=== PATIENT | male | born 1960 | race Caucasian/White ===

== ENCOUNTER 2017-03-13 00:24 | Inpatient (IN) ==
--- NOTE | 2017-03-13 01:23 | Emergency Department Note ---
Arrival - Arrival Chief Complaint: Shortness of Breath Stated Complaint: transfer from [facility], [place] of Breath ED Nursing Triage Note: Pt arrives via ems from [facility]. Pt was seen for shortness of breath and became combative while attempting to give breathing treatments. Pt was intubated and sent for critical care. Pt is intubated with 7.5 et tube and sedated with versed infusion at time of triage. Mode of Arrival: Stretcher Limitations: Altered Mental Status Source: Family, EMS, Old Records Reviewed, RN Notes Reviewed Time Seen by Provider: 03/13/17 01:14 - History of Present Illness HPI Narrative: The patient was transferred here from [place] intubated with COPD exacerbation. According to the family he has been having steadily worsening respiratory problems for the past 2 months. He does not see a physician for this. He is a heavy smoker and has COPD. He went to the hospital tonight and they were unable to turn him around with nebs. He became very combative and started worsening so he was intubated. The family knows of no fever or other symptoms. Allergies/Adverse Reactions: Allergies Allergy/AdvReac Type Severity Reaction Status Date / Time No Known Allergies Allergy Verified 12/18/15 23:34 Home Medications: Home Medications Medication Instructions Recorded Confirmed Type No Known Home Medications [No 03/13/17 03/13/17 History Known Home Medications] Review of System - Review of System ROS unobtainable: due to mental status Medical,Surgical,& Family Hx - Medical History HEENT: History of: Ear Problem (ear infection) Respiratory: History of: COPD Gastrointestinal: History of: GERD, Liver Problems (enlarged liver), Pancreatitis Musculoskeletal: History of: Back/Neck Problems - Surgical History Abdominal Surgeries: Surgical HX of: Cholecystectomy - Family History Family History: Reports;: Family Cancer (grandfather-lung,dad-brain/lung, grandmother-breast, aunt-"female"), Family Diabetes (grandmothers), Family Hypertension (mother), Family Stroke (mother ahd multiple cvas) Denies;: Family Anesthesia Reaction, Family Heart Disease, Family Psychiatric Problems - Social History Smoking Status: Current every day smoker Frequency of Alcohol Use: None Type of Drug Use: None Exam Physical Examination: GENERAL: Obtunded on Versed infusion. Intubated. Sats 100%. HEENT: Normocephalic and atraumatic. Pupils are small and sluggish bilaterally. There is no nasal drainage. Patient is intubated. NECK: Normal inspection. No lymphadenopathy noted. LUNGS: Intubated. Breath sounds are equal. Chest rise is symmetric. Lung sounds are clear. HEART: Regular rate and rhythm. ABDOMEN: Soft, nondistended with normal bowel sounds. SKIN: Color normal. Warm and dry. EXTREMITIES: . No pedal edema. No obvious trauma. NEUROLOGICAL/PSYCHIATRIC: Patient is unresponsive due to Versed infusion and cannot cooperate with neuro exam. Vital Signs: Vital Signs Temperature 98.7 F 03/13/17 00:24 Pulse Rate 101 H 03/13/17 00:24 Respiratory Rate 16 03/13/17 01:09 Blood Pressure 101/70 03/13/17 00:24 O2 Sat by Pulse Oximetry 98 03/13/17 00:24 Course - Reevaluation(s) Reevaluation #1: Patient appears to be stable on the ventilator. I have ordered ABGs. I have discussed the patient with the hospitalist service who will see him and admit. Time: 01:21 Results - Labs Lab Results: I have reviewed the patients labs Labs: Labs were done at [facility] and are significant as follows: Glucose 110 BUN 4 Creatinine 0.8 Sodium 137 Potassium 3.4 WBC count 9.6 Hemoglobin 16.8 Hematocrit 48.7 Platelets 244. - Impressions Chest x-ray from [place] showed the ET tube just above the fabrice. No obvious infiltrates. Disposition Clinical Impression: Acute exacerbation of chronic obstructive airways disease Case discussed with: patient's family Disposition: Still a Patient Condition: Critical Time of Disposition: 01:31
[2017-03-13] MEDS ORDERED: fentaNYL 100 MCG/2 ML VIAL IV STA (02:17)
--- NOTE | 2017-03-13 02:27 | Hospitalist History & Physical ---
Assessment and Plan (1) Acute respiratory failure Status: Acute Assessment and plan: Acute COPD Exacerbation/Acute respiratory failure - On ventilator - Sedated with Versed - IV Solumedrol - IV Levaquin - nebulizer treatments - serial abg's - consult pulmonology - will monitor Current Visit: Yes (2) Acute exacerbation of chronic obstructive airways disease Status: Acute Assessment and plan: see above Current Visit: Yes History of Present Illness Chief complaint: shortness of breath History of present illness: Mr. San is a 56 year old male with a history of COPD, GERD, enlarged liver, pancreatitis, and chronic neck and back pain that was transferred to the ER from [facility]. Patient presented there with shortness of breath that did not improve with several nebulizer treatments. He became combative and respiratory status worsened and he was intubated. Patient was transferred here status post intubation. Per family, patient is everyday smoker. Patient has been having worsening shortness of breath for the past several weeks. Patient' s family reports he recently lost his voice. They are not quite sure of his other symptoms. Patient is a former alcoholic but family feels that he has stopped drinking alcohol. Patient's family thinks that this is the first time he has had to be intubated for a COPD exacerbation. Patient does not have a primary care provider and does not receive any medical care. Again, patient continues to smoke. Records from outside hospital reviewed. Patient will be admitted to ICU for further management per the hospitalist service. Home Medications Medication Instructions Recorded Confirmed Type Unable To Obtain [Unable to Obtain] 03/13/17 03/13/17 History Allergies Allergy/AdvReac Type Severity Reaction Status Date / Time No Known Allergies Allergy Verified 12/18/15 23:34 Medical,Surgical,& Family Hx - Medical History HEENT: History of: Ear Problem (ear infection) Respiratory: History of: COPD Gastrointestinal: History of: GERD, Liver Problems (enlarged liver), Pancreatitis, GI Problems (hiatal hernia) Musculoskeletal: History of: Back/Neck Problems - Surgical History Abdominal Surgeries: Surgical HX of: Cholecystectomy - Family History Family History: Reports;: Family Cancer (grandfather-lung,dad-brain/lung, grandmother-breast, aunt-"female"), Family Diabetes (grandmothers), Family Hypertension (mother), Family Stroke (mother ahd multiple cvas) Denies;: Family Anesthesia Reaction, Family Heart Disease, Family Psychiatric Problems - Social History Smoking Status: Current every day smoker Frequency of Alcohol Use: None Type of Drug Use: None ROS unobtainable: due to endotracheal tube Exam - Constitutional Vitals: Period Temp Pulse Resp BP Sys/Hart Pulse Ox Last 24 Hr 98.2 F-98.7 F 101-101 14-16 101-101/70-70 98 General appearance: normal weight, no acute distress - Head Head exam: Present: normal inspection, other (intubated) - Eye Pupils: Present: PETE - Neck Neck exam: Present: normal inspection - Respiratory Respiratory exam: Present: decreased breath sounds, wheezes (expiratory), other (coarse breath sounds) - Cardiovascular Cardiovascular exam: Present: regular rate and rhythm. Absent: systolic murmur - GI/Abdominal GI/Abdominal exam: Present: normal bowel sounds, soft. Absent: organomegaly - Extremities Exam Extremities exam: Present: other (peripheral pulses intact). Absent: edema - Neurological Exam Neurological exam: Present: other (sedated) - Skin Skin exam: Present: normal color, warm Results - Labs Labs: records reviewed from [facility]
[2017-03-13] MEDS: MIDAZOLAM 100 MG in SODIUM CHLORIDE 0.9% 80 ML IV SCH (02:32)
[2017-03-13 02:54] LABS: ABG Base Excess -0.2 MMOL/L (-2.5-2.5); ABG HCO3 24.2 MMOL/L (20-26); ABG PCO2 50.7 MM HG (35-48); ABG TCO2 22.9 MMOL/L (23-27); Allen Test Positive; Pt O2 Delivery Device Ventilator
[2017-03-13] MEDS ORDERED: fentaNYL 100 MCG/2 ML VIAL ONE (02:54)
[2017-03-13] MEDS ORDERED: ONDANSETRON 4 MG/2 ML VIAL IV PRN (03:09)
[2017-03-13] MEDS ORDERED: MIDAZOLAM 100 MG in SODIUM CHLORIDE 0.9% 80 ML IV SCH (03:09)
[2017-03-13] MEDS: SODIUM CHLORIDE 0.9% 1,000 ML IV SCH ×3 (04:09→17:54)
[2017-03-13] MEDS: PANTOPRAZOLE 40 MG VIAL IV SCH (04:17)
[2017-03-13] MEDS: LEVOFLOXACIN INJ 750 MG in PREMIX 1 EACH IV SCH (04:18)
[2017-03-13] MEDS: methylPREDNISolone SOD SUC 125 MG/2 ML VIAL IV SCH ×4 (04:18→21:03)
[2017-03-13 05:24] LABS: Basophils % 0.4 % (0.0-0.8); Hematocrit 41.2 VOL% (42.0-52.0); Hemoglobin 14.4 GM/DL (14.0-18.0); Immature Granulocytes % 0.5 %; Immature Granulocytes Absolute 0.03 #; Lymphocytes # 0.4 10*3/uL (1.4-4.0); Lymphocytes % 7.3 % (21.2-54.2); Mean Corpuscular Hemoglobin 35 PG (27-34); Mean Corpuscular Volume 100.7 FL (87-102); Mean Platelet Volume 10.4 FL (9.6-12.0); Monocytes # 0.1 10*3/uL (0.11-0.8); Monocytes % 1.6 % (1.7-12.7); Neutrophils % 90.2 % (38.7-73.9); Platelet Count 187 T/CUMM (130-400); Red Blood Count 4.09 MC/CUMM (3.8-5.5); Red Cell Distribution Width 13.1 % (9.3-17.3); White Blood Count 5.6 T/CUMM (4-12)
[2017-03-13 05:48] LABS: Apearance,Urine CLOUDY (Clear); Bilirubin,Urine Negative (Negative); Blood, Urine Moderate mg/dL (Negative); Glucose,Urine (UA) Negative (Negative); Ketones,Urine 20 mg/dL (Negative); Mucus,Urine Many /LPF (Occasional); Nitrite,Urine Negative (Negative); Protein,Urine 30 MG/DL; Urine Color Amber (Yellow); Urine Specific Gravity 1.017 (1.001-1.035); WBC,Urine 53 /HPF (0-6)
[2017-03-13 05:52] LABS: Magnesium 2.1 MG/DL (1.8-2.4)
[2017-03-13 05:58] LABS: Albumin 2.6 G/DL (3.4-5.0); Bilirubin,Total 0.8 MG/DL (0.2-1.0); Calcium 8.3 MG/DL (8.5-10.1); Osmolality,Calculated 272.7 MOS/KG (273-304); Potassium 3.4 MMOL/L (3.5-5.1); Total Protein 5.8 G/DL (6.4-8.3)
[2017-03-13] MEDS ORDERED: SODIUM CHLORIDE 0.9% 1,000 ML IV SCH (06:00)
[2017-03-13 06:04] LABS: Lactic Acid 2.3 MMOL/L (0.4-2.0)
[2017-03-13 06:31] LABS: Platelet Estimate Normal
[2017-03-13] MEDS: ALBUTEROL/IPRATROPIUM 3 ML NEB RESP TX SCH ×3 (07:34→19:34)
[2017-03-13 07:49] LABS: ABG Base Excess -0.8 MMOL/L (-2.5-2.5); ABG HCO3 23.8 MMOL/L (20-26); ABG Oxygen Saturation 98.5 % (95-100); ABG PCO2 33.7 MM HG (35-48); ABG PH 7.436 (7.35-7.45); ABG TCO2 19.4 MMOL/L (23-27); Allen Test Positive; Pt O2 Delivery Device Ventilator
--- NOTE | 2017-03-13 08:20 | Pulmonology Consult Note ---
Assessment and Plan (1) Smoker Status: Acute Assessment and plan: We will place a nicotine patch and he certainly needs to quit smoking. Current Visit: Yes (2) Acute exacerbation of chronic obstructive airways disease Status: Acute Assessment and plan: The patient comes in with an exacerbation of his COPD and is now on the ventilator. Will continue with steroids and bronchodilator therapy. Current Visit: Yes (3) Acute respiratory failure Status: Acute Assessment and plan: The patient apparently was in distress and agitated and had to be intubated. He is stable on the ventilator at present. Current Visit: Yes History of Present Illness Chief complaint: Ventilator management History of present illness: Mr. San is a 56 year old white male that apparently is a heavy smoker and has COPD. Last year he has gallstone pancreatitis and had a cholecystectomy. He presented to [facility] with increasing shortness of breath and respiratory distress. He apparently was very agitated and combative and was ultimately intubated. He is now on the ventilator and reasonably stable. He has not had any treatment for COPD. He used to drink alcohol a lot but the family apparently thinks that he stopped this. He is a heavy smoker. He is stable on the ventilator at present Home Medications Medication Instructions Recorded Confirmed Type No Known Home Medications [No 03/13/17 03/13/17 History Known Home Medications] Allergies Allergy/AdvReac Type Severity Reaction Status Date / Time No Known Allergies Allergy Verified 12/18/15 23:34 ROS unobtainable: due to endotracheal tube (Patient is sedated on ventilator at present.) Exam (Pulmonay) H&P - Constitutional Vitals: Period Temp Pulse Resp BP Sys/Hart Pulse Ox Last 24 Hr 97 F-98.7 F 86-112 14-26 90-120/58-74 95-100 General appearance: normal weight, no acute distress (Patient is comfortable on the ventilator.) - Head Head exam: Present: normal inspection, normocephalic - Eye Eye exam: Present: EOMI. Absent: scleral icterus Pupils: Present: PETE - ENT ENT exam: Present: other (ET tube is in good position) - Neck Neck exam: Absent: lymphadenopathy, thyromegaly - Respiratory Respiratory exam: Present: decreased breath sounds, wheezes, other (He has good breath sounds bilaterally.) - Cardiovascular Cardiovascular exam: Present: regular rate and rhythm. Absent: gallop, systolic murmur - GI/Abdominal GI/Abdominal exam: Present: normal bowel sounds, soft. Absent: distended, tenderness - Extremities Exam Extremities exam: Absent: calf tenderness, edema - Neurological Exam Neurological exam: Present: other (Patient is sedated on the ventilator) - Psychiatric Psychiatric exam: Absent: anxious - Skin Skin exam: Present: warm, dry Medical,Surgical,& Family Hx - Medical History HEENT: History of: Ear Problem (ear infection) Respiratory: History of: COPD Gastrointestinal: History of: GERD, Liver Problems (enlarged liver), Pancreatitis, GI Problems (hiatal hernia) Musculoskeletal: History of: Back/Neck Problems - Surgical History Abdominal Surgeries: Surgical HX of: Cholecystectomy - Family History Family History: Reports;: Family Cancer (grandfather-lung,dad-brain/lung, grandmother-breast, aunt-"female"), Family Diabetes (grandmothers), Family Hypertension (mother), Family Stroke (mother ahd multiple cvas) Denies;: Family Anesthesia Reaction, Family Heart Disease, Family Psychiatric Problems - Social History Smoking Status: Current every day smoker Frequency of Alcohol Use: None Type of Drug Use: None Results - Labs CBC & BMP: 03/13/17 04:33 03/13/17 04:33 Labs: His PO2 is 117 with a PCO2 of 33 and a pH of 7.43 on 60%. - Diagnostic Findings Procedure: Chest x-ray: image reviewed by me, report reviewed by me (Chest x- ray shows COPD changes with mild left lower lobe atelectasis.)
[2017-03-13] MEDS: ENOXAPARIN 40 MG/0.4 ML SYRINGE SUBCUT SCH (08:53)
[2017-03-13] MEDS: NICOTINE 21 MG/24 HR PATCH TRANSDERM SCH (08:57)
--- NOTE | 2017-03-13 10:17 | XRay Report ---
XR chest 1V portable Indication: Shortness of breath Comparison: 12 March 2017 Findings: The heart and mediastinum are stable in size and configuration. Endotracheal tube is unchanged in position. The pulmonary vascularity is normal in caliber. No lung infiltrates, effusions, pneumothorax or other abnormality is demonstrated. Impression: No significant change. PROCEDURE INTERPRETED AT [facility] DEPARTMENT OF RADIOLOGY Final Report Signed by: Dr. Ayad Melo
--- NOTE | 2017-03-13 12:09 | Hospitalist Progress Note ---
Assessment and Plan (1) Acute respiratory failure Status: Acute Assessment and plan: continue current care. Follow pulmonary's recommendations. Will get Blood cultures Current Visit: Yes (2) History of alcohol abuse Status: Acute Assessment and plan: will start thiamine,folic acid and multivitamins. Current Visit: Yes Hospitalist: Subjective Interval history: Patient seen this am. He was awake but intubated. Exam - Constitutional Vitals: Period Temp Pulse Resp BP Sys/Hart Pulse Ox Last 24 Hr 97 F-98.7 F 86-112 10-26 90-120/58-74 95-100 General appearance: no acute distress - Head Head exam: Present: normal inspection - Respiratory Respiratory exam: Present: rhonchi, other - Cardiovascular Cardiovascular exam: Present: regular rate and rhythm - GI/Abdominal GI/Abdominal exam: Present: normal bowel sounds - Extremities Exam Extremities exam: Present: normal inspection - Neurological Exam Neurological exam: Present: alert Results - Labs CBC & BMP: 03/13/17 04:33 03/13/17 04:33 Lab Results: I have reviewed the past 24 hour labs
[2017-03-13] MEDS ORDERED: FOLIC ACID 5 MG/1 ML VIAL IV SCH (12:30)
[2017-03-13] MEDS: MULTIVITAMIN (OCUVITE) TABLET PO SCH ×2 (13:49→20:16)
[2017-03-13] MEDS: THIAMINE 200 MG/2 ML VIAL IV SCH (14:15)
[2017-03-13] MEDS: FOLIC ACID INJ 1 MG in SYRINGE 1 EACH IV SCH (14:23)
[2017-03-14] MEDS: SODIUM CHLORIDE 0.9% 1,000 ML IV SCH ×6 (00:53→20:35)
[2017-03-14] MEDS: ALBUTEROL/IPRATROPIUM 3 ML NEB RESP TX SCH ×4 (01:47→20:35)
[2017-03-14] MEDS ORDERED: PROPOFOL 1,000 MG/100 ML BOTTLE IV ONE (04:01)
[2017-03-14] MEDS: PROPOFOL 1,000 MG/100 ML BOTTLE IV SCH ×4 (04:05→22:12)
[2017-03-14] MEDS: MIDAZOLAM 100 MG in SODIUM CHLORIDE 0.9% 80 ML IV SCH (04:06)
[2017-03-14] MEDS: methylPREDNISolone SOD SUC 125 MG/2 ML VIAL IV SCH ×4 (04:06→21:03)
[2017-03-14] MEDS: PANTOPRAZOLE 40 MG VIAL IV SCH (04:06)
[2017-03-14] MEDS: ENOXAPARIN 40 MG/0.4 ML SYRINGE SUBCUT SCH (04:06)
[2017-03-14] MEDS: LEVOFLOXACIN INJ 750 MG in PREMIX 1 EACH IV SCH (04:07)
[2017-03-14 05:51] LABS: Basophils % 0.1 % (0.0-0.8); Hematocrit 39.1 VOL% (42.0-52.0); Hemoglobin 13.5 GM/DL (14.0-18.0); Immature Granulocytes % 0.5 %; Immature Granulocytes Absolute 0.06 #; Lymphocytes # 0.5 10*3/uL (1.4-4.0); Lymphocytes % 3.9 % (21.2-54.2); Mean Corpuscular HGB Conc 34.5 GM/DL (32-36); Mean Corpuscular Hemoglobin 35 PG (27-34); Mean Corpuscular Volume 100.5 FL (87-102); Mean Platelet Volume 10.8 FL (9.6-12.0); Monocytes # 0.5 10*3/uL (0.11-0.8); Monocytes % 4.3 % (1.7-12.7); Neutrophils # 11.5 10*3/uL (1.4-7.4); Neutrophils % 91.2 % (38.7-73.9); Platelet Count 218 T/CUMM (130-400); Red Blood Count 3.89 MC/CUMM (3.8-5.5); Red Cell Distribution Width 13.2 % (9.3-17.3); White Blood Count 12.6 T/CUMM (4-12)
[2017-03-14 06:14] LABS: Hypochromasia Slight; Lymphocytes 3 % (20-55); Platelet Estimate Adequate; Segmented Neutrophils 92 % (50-85); Total Cells Counted 100
[2017-03-14 06:16] LABS: Calcium 8.4 MG/DL (8.5-10.1); Osmolality,Calculated 279.5 MOS/KG (273-304); Potassium 3.7 MMOL/L (3.5-5.1)
--- NOTE | 2017-03-14 08:18 | Pulmonology Progress Note ---
Pulmonary - PN: Subj Interval history: Patient is a 56-year-old white man who is a heavy smoker and has COPD. He developed respiratory distress and had to be put on the ventilator. He has been quite stable overnight on the ventilator. His oxygenation has been good and his vital signs are stable. He has not had any problems at all. Will start weaning from the ventilator. Exam (Progress Note) - Constitutional Vitals: Period Temp Pulse Resp BP Sys/Hart Pulse Ox Last 24 Hr 97.5 F-98.3 F 78-106 10-24 99-133/64-85 94-100 Exam: General appearance: normal weight, no acute distress (Patient is comfortable on the ventilator. He has been stable through the night.) - Head Head exam: Present: normal inspection, normocephalic - Eye Eye exam: Present: EOMI. Absent: scleral icterus Pupils: Present: PETE - ENT ENT exam: Present: other (ET tube is in good position) - Neck Neck exam: Absent: lymphadenopathy, thyromegaly - Respiratory Respiratory exam: Present: He has fairly good breath sounds bilaterally without any definite wheezing now. - Cardiovascular Cardiovascular exam: Present: regular rate and rhythm. Absent: gallop, systolic murmur - GI/Abdominal GI/Abdominal exam: Present: normal bowel sounds, soft. Absent: distended, tenderness - Extremities Exam Extremities exam: Absent: calf tenderness, edema - Neurological Exam Neurological exam: Present: other (Patient is sedated on the ventilator) - Psychiatric Psychiatric exam: Absent: anxious - Skin Skin exam: Present: warm, dry Results - Labs CBC & BMP: 03/14/17 05:25 03/14/17 05:24 Assessment and Plan (1) Smoker Status: Acute Assessment and plan: We will place a nicotine patch and he certainly needs to quit smoking. Current Visit: Yes (2) Acute exacerbation of chronic obstructive airways disease Status: Acute Assessment and plan: The patient comes in with an exacerbation of his COPD and is now on the ventilator. Will continue with steroids and bronchodilator therapy. Will start on weaning today. Current Visit: Yes (3) Acute respiratory failure Status: Acute Assessment and plan: The patient apparently was in distress and agitated and had to be intubated. He is stable on the ventilator at present. We will continue ventilatory support for now. Current Visit: Yes
--- NOTE | 2017-03-14 10:47 | Hospitalist Progress Note ---
Assessment and Plan (1) Acute exacerbation of chronic obstructive airways disease Status: Acute Assessment and plan: Continue antibiotics, bronchodilators, corticosteroids. Pulmonary following. Vent weaning in progress. Current Visit: Yes (2) Acute respiratory failure Status: Acute Current Visit: Yes Qualifiers: Respiratory failure complication: hypoxia Qualified Code(s): J96.01 - Acute respiratory failure with hypoxia (3) Smoker Status: Chronic Current Visit: Yes Hospitalist: Subjective Interval history: Patient seen and examined. No acute events overnight. Case discussed with nursing staff. Labs reviewed. Ventilator weaning in progress. Exam - Constitutional Vitals: Period Temp Pulse Resp BP Sys/Hart Pulse Ox Last 24 Hr 97.5 F-98.3 F 78-106 10-24 99-133/64-85 94-100 Exam: Constitutional System: No distress. No tremulousness. Intubated and sedated Head: Normocephalic, atraumatic. Ears, Nose and Throat System: No pain or tenderness. No epistaxis or discharge Eyes System: Pupils equal, round, and reactive. Extraocular muscles intact. Neck: Supple, without adenopathy, No jugular venous distention. No thyromegaly, neck mass, or prior surgery apparent. Respiratory System: Chest clear to auscultation. Cardiovascular System: Heart with regular rate and rhythm. No murmur. GI System: Abdomen soft, nontender. Normo active bowel sounds present. Musculoskeletal System: limbs with no pedal edema. Full distal pulses. Neurological System: No discernable sensory deficit. No aphasia Psychiatric System: Conversation is rational Results - Labs CBC & BMP: 03/14/17 05:25 03/14/17 05:24 Lab Results: I have reviewed the past 24 hour labs
[2017-03-14] MEDS: MULTIVITAMIN (OCUVITE) TABLET PO SCH ×2 (10:49→20:58)
[2017-03-14] MEDS: THIAMINE 200 MG/2 ML VIAL IV SCH (10:52)
[2017-03-14] MEDS: NICOTINE 21 MG/24 HR PATCH TRANSDERM SCH (10:54)
[2017-03-14] MEDS: FOLIC ACID INJ 1 MG in SYRINGE 1 EACH IV SCH (13:28)
[2017-03-14] MEDS: DESITIN 4OZ/NYSTATIN 15 GRAM MIXTURE PASTE TOP SCH ×2 (16:49→20:58)
[2017-03-14] MEDS ORDERED: DEXTROSE 50% 25 GM/50 ML VIAL IV PRN (17:41)
[2017-03-14] MEDS ORDERED: GLUCAGON 1 MG VIAL IM PRN (17:41)
[2017-03-14] MEDS: INSULIN REGULAR 100 UNIT/ML SUBCUT SCH ×2 (19:10→23:58)
[2017-03-15] MEDS: ALBUTEROL/IPRATROPIUM 3 ML NEB RESP TX SCH ×4 (00:57→20:06)
[2017-03-15] MEDS: PROPOFOL 1,000 MG/100 ML BOTTLE IV SCH ×2 (02:06→04:58)
[2017-03-15 03:30] LABS: ABG Base Excess 1.7 MMOL/L (-2.5-2.5); ABG HCO3 23.9 MMOL/L (20-26); ABG Oxygen Saturation 98.6 % (95-100); ABG PH 7.505 (7.35-7.45); ABG TCO2 24.9 MMOL/L (23-27); Allen Test Positive; Pt O2 Delivery Device Ventilator
[2017-03-15] MEDS: SODIUM CHLORIDE 0.9% 1,000 ML IV SCH ×4 (04:01→22:35)
[2017-03-15] MEDS: MIDAZOLAM 100 MG in SODIUM CHLORIDE 0.9% 80 ML IV SCH (04:01)
[2017-03-15] MEDS: methylPREDNISolone SOD SUC 125 MG/2 ML VIAL IV SCH ×4 (04:24→21:06)
[2017-03-15] MEDS: LEVOFLOXACIN INJ 750 MG in PREMIX 1 EACH IV SCH (04:25)
[2017-03-15] MEDS: PANTOPRAZOLE 40 MG VIAL IV SCH (04:25)
[2017-03-15] MEDS: ENOXAPARIN 40 MG/0.4 ML SYRINGE SUBCUT SCH (04:25)
[2017-03-15] MEDS: INSULIN REGULAR 100 UNIT/ML SUBCUT SCH ×4 (05:15→23:29)
[2017-03-15 05:50] LABS: Magnesium 2.1 MG/DL (1.8-2.4); Phosphorous 2.6 MG/DL (2.5-4.9); Prealbumin 13.1 MG/DL (20-40)
[2017-03-15] MEDS: DESITIN 4OZ/NYSTATIN 15 GRAM MIXTURE PASTE TOP SCH ×2 (08:13→20:56)
--- NOTE | 2017-03-15 08:13 | Pulmonology Progress Note ---
Pulmonary - PN: Subj Interval history: Patient is a 56-year-old white man who is a heavy smoker and has COPD. He developed respiratory distress and had to be put on the ventilator. He has been comfortable on the ventilator and is more awake now. His vital signs have been stable and his oxygenation has been okay. His chest x-ray does show left lower lobe atelectasis. He apparently is doing CPAP reasonably well. Will plan a therapeutic bronchoscopy and clear his left lower lobe and see about extubating soon. Exam (Progress Note) - Constitutional Vitals: Period Temp Pulse Resp BP Sys/Hart Pulse Ox Last 24 Hr 97.6 F-98.5 F 61-96 12-27 124-162/75-98 97-100 Exam: General appearance: normal weight, no acute distress (Patient is comfortable on the ventilator. He has been stable through the night.) - Head Head exam: Present: normal inspection, normocephalic - Eye Eye exam: Present: EOMI. Absent: scleral icterus Pupils: Present: PETE - ENT ENT exam: Present: other (ET tube is in good position) - Neck Neck exam: Absent: lymphadenopathy, thyromegaly - Respiratory Respiratory exam: Present: He has fairly good breath sounds bilaterally without any definite wheezing now. He is moving air okay. - Cardiovascular Cardiovascular exam: Present: regular rate and rhythm. Absent: gallop, systolic murmur - GI/Abdominal GI/Abdominal exam: Present: normal bowel sounds, soft. Absent: distended, tenderness - Extremities Exam Extremities exam: Absent: calf tenderness, edema - Neurological Exam Neurological exam: Present: other (Patient is sedated on the ventilator) - Psychiatric Psychiatric exam: Absent: anxious - Skin Skin exam: Present: warm, dry Results - Labs CBC & BMP: 03/14/17 05:25 03/14/17 05:24 Labs: PO2 is 124 with a PCO2 of 31 and pH of 7.5 - Diagnostic Findings Procedure: Chest x-ray: image reviewed by me, report reviewed by me (Chest x- ray shows COPD changes with left lower lobe infiltrate.) Assessment and Plan (1) Smoker Status: Chronic Assessment and plan: We will place a nicotine patch and he certainly needs to quit smoking. Current Visit: Yes (2) Acute exacerbation of chronic obstructive airways disease Status: Acute Assessment and plan: The patient comes in with an exacerbation of his COPD and is now on the ventilator. Will continue with steroids and bronchodilator therapy. His oxygenation is better. He is doing CPAP fairly well. He does have left lower lobe atelectasis. Will plan a therapeutic bronchoscopy and then try to extubate soon. Current Visit: Yes (3) Acute respiratory failure Status: Acute Assessment and plan: The patient apparently was in distress and agitated and had to be intubated. He is stable on the ventilator at present. His oxygenation is better and he is doing well with CPAP. He has left lower lobe atelectasis and will plan a therapeutic bronchoscopy. Current Visit: Yes Qualifiers: Respiratory failure complication: hypoxia Qualified Code(s): J96.01 - Acute respiratory failure with hypoxia
--- NOTE | 2017-03-15 08:20 | XRay Report ---
XR chest 1V portable Indication: Ventilator patient Comparison: 13 March 2017 Findings: The heart and mediastinum are stable in size and configuration. Endotracheal tube is unchanged in position. NG tube has been added lies off the edge of the film left abdomen area. The pulmonary vascularity is normal in caliber. No lung infiltrates, effusions, pneumothorax or other abnormality is demonstrated. Impression: No significant change. PROCEDURE INTERPRETED AT [facility] DEPARTMENT OF RADIOLOGY Final Report Signed by: Dr. Ayad Melo
[2017-03-15] MEDS: THIAMINE 200 MG/2 ML VIAL IV SCH (08:43)
[2017-03-15] MEDS: MULTIVITAMIN (OCUVITE) TABLET PO SCH ×2 (08:43→20:52)
[2017-03-15] MEDS: NICOTINE 21 MG/24 HR PATCH TRANSDERM SCH (08:43)
[2017-03-15] MEDS: FOLIC ACID INJ 1 MG in SYRINGE 1 EACH IV SCH (13:10)
--- NOTE | 2017-03-15 14:31 | Hospitalist Progress Note ---
Assessment and Plan (1) Acute exacerbation of chronic obstructive airways disease Status: Acute Assessment and plan: Continue antibiotics, bronchodilators, corticosteroids. Pulmonary following. Vent weaning in progress. Current Visit: Yes (2) Acute respiratory failure Status: Acute Current Visit: Yes Qualifiers: Respiratory failure complication: hypoxia Qualified Code(s): J96.01 - Acute respiratory failure with hypoxia (3) Smoker Status: Chronic Current Visit: Yes Hospitalist: Subjective Interval history: Patient seen and examined. No acute events overnight. Case discussed with nursing staff. Labs reviewed. Undergoing CPAP trials currently. Plan for extubation today. Exam - Constitutional Vitals: Period Temp Pulse Resp BP Sys/Hart Pulse Ox Last 24 Hr 97.6 F-98.5 F 61-108 12-28 123-162/75-98 97-100 Exam: Constitutional System: No distress. No tremulousness. Intubated on CPAP. Awake with eyes open. Responds to commands. Head: Normocephalic, atraumatic. Ears, Nose and Throat System: No pain or tenderness. No epistaxis or discharge Eyes System: Pupils equal, round, and reactive. Extraocular muscles intact. Neck: Supple, without adenopathy, No jugular venous distention. No thyromegaly, neck mass, or prior surgery apparent. Respiratory System: Chest clear to auscultation. Cardiovascular System: Heart with regular rate and rhythm. No murmur. GI System: Abdomen soft, nontender. Normo active bowel sounds present. Musculoskeletal System: limbs with no pedal edema. Full distal pulses. Neurological System: No discernable sensory deficit. No aphasia Psychiatric System: Conversation is rational Results - Labs CBC & BMP: 03/14/17 05:25 03/14/17 05:24 Lab Results: I have reviewed the past 24 hour labs
[2017-03-16] MEDS: ALBUTEROL/IPRATROPIUM 3 ML NEB RESP TX SCH ×4 (01:09→20:40)
[2017-03-16] MEDS: PANTOPRAZOLE 40 MG VIAL IV SCH (04:31)
[2017-03-16] MEDS: ENOXAPARIN 40 MG/0.4 ML SYRINGE SUBCUT SCH (04:31)
[2017-03-16] MEDS: LEVOFLOXACIN INJ 750 MG in PREMIX 1 EACH IV SCH (04:32)
[2017-03-16] MEDS: methylPREDNISolone SOD SUC 125 MG/2 ML VIAL IV SCH (04:32)
[2017-03-16] MEDS: SODIUM CHLORIDE 0.9% 1,000 ML IV SCH ×2 (04:33→05:26)
[2017-03-16] MEDS: INSULIN REGULAR 100 UNIT/ML SUBCUT SCH (05:26)
--- NOTE | 2017-03-16 07:40 | XRay Report ---
XR chest 1V portable Indication: Respiratory distress Comparison: 15 March 2017 Findings: The heart and mediastinum are stable in size and configuration. Endotracheal tube and NG tube is been removed. The pulmonary vascularity is increased with bilateral increased interstitial lung density. No other lung infiltrates, effusions, pneumothorax or other abnormality is demonstrated. Impression: Findings suggest cardiac decompensation. Endotracheal tube and NG tube have been removed. PROCEDURE INTERPRETED AT [facility] DEPARTMENT OF RADIOLOGY Final Report Signed by: Dr. Ayad Melo
--- NOTE | 2017-03-16 08:30 | Pulmonology Progress Note ---
Pulmonary - PN: Subj Interval history: Patient is a 56-year-old white man who is a heavy smoker and has COPD. He developed respiratory distress and had to be put on the ventilator. He was ventilated for a few days and his lungs are much better. Yesterday he was extubated without any problems. He said he had a fairly good night and is comfortable today. He is a little hoarse. He is taking in liquids. He is coughing okay and is not short of breath now. Overall he looks much better. Exam (Progress Note) - Constitutional Vitals: Period Temp Pulse Resp BP Sys/Hart Pulse Ox Last 24 Hr 97.8 F-98.8 F 56-108 14-28 123-155/73-103 93-100 Exam: General appearance: normal weight, no acute distress (Patient is alert and comfortable and talking well.) - Head Head exam: Present: normal inspection, normocephalic - Eye Eye exam: Present: EOMI. Absent: scleral icterus Pupils: Present: PETE - ENT ENT exam: Present: Unremarkable - Neck Neck exam: Absent: lymphadenopathy, thyromegaly - Respiratory Respiratory exam: Present: He has fairly good breath sounds bilaterally without any definite wheezing now. His lungs sound okay today. - Cardiovascular Cardiovascular exam: Present: regular rate and rhythm. Absent: gallop, systolic murmur - GI/Abdominal GI/Abdominal exam: Present: normal bowel sounds, soft. Absent: distended, tenderness - Extremities Exam Extremities exam: Absent: calf tenderness, edema - Neurological Exam Neurological exam: Present: He is alert and talking and moving his extremities. - Psychiatric Psychiatric exam: Absent: anxious - Skin Skin exam: Present: warm, dry Results - Labs CBC & BMP: 03/14/17 05:25 03/14/17 05:24 Labs: His PO2 is 205 with a PCO2 of 31 and pH of 7.51 Assessment and Plan (1) Smoker Status: Chronic Assessment and plan: We will place a nicotine patch and he certainly needs to quit smoking. Current Visit: Yes (2) Acute exacerbation of chronic obstructive airways disease Status: Acute Assessment and plan: The patient comes in with an exacerbation of his COPD . He was ventilated for a few days but is doing much better now. Shortness of breath is much improved and he is not wheezing or coughing now. Will continue with bronchodilator therapy for now. Current Visit: Yes (3) Acute respiratory failure Status: Acute Assessment and plan: The patient had to be ventilated for a few days but is much better now. He is not having any respiratory distress and can increase his activity. He should be able to go to a regular room. Current Visit: Yes Qualifiers: Respiratory failure complication: hypoxia Qualified Code(s): J96.01 - Acute respiratory failure with hypoxia
[2017-03-16] MEDS: NICOTINE 21 MG/24 HR PATCH TRANSDERM SCH (09:02)
[2017-03-16] MEDS: MULTIVITAMIN (OCUVITE) TABLET PO SCH ×2 (09:04→20:11)
[2017-03-16] MEDS: DESITIN 4OZ/NYSTATIN 15 GRAM MIXTURE PASTE TOP SCH ×2 (09:05→20:20)
[2017-03-16] MEDS: methylPREDNISolone SOD SUC 40 MG/1 ML VIAL IV SCH ×2 (09:05→16:50)
[2017-03-16] MEDS: THIAMINE 200 MG/2 ML VIAL IV SCH (09:07)
[2017-03-16] MEDS ORDERED: POTASSIUM CHLORIDE 20 MEQ TABLET PO ONE (11:36)
[2017-03-16] MEDS ORDERED: FUROSEMIDE 40 MG/4 ML VIAL IV ONE (11:38)
--- NOTE | 2017-03-16 11:39 | Hospitalist Progress Note ---
Assessment and Plan (1) Acute exacerbation of chronic obstructive airways disease Status: Acute Assessment and plan: Continue antibiotics, bronchodilators, corticosteroids. Pulmonary following. Status post extubation. Transfer to the floor. Continue oral Levaquin. Current Visit: Yes (2) Acute respiratory failure Status: Resolved Current Visit: Yes Qualifiers: Respiratory failure complication: hypoxia Qualified Code(s): J96.01 - Acute respiratory failure with hypoxia (3) Smoker Status: Chronic Current Visit: Yes Hospitalist: Subjective Interval history: Patient seen and examined. No acute events overnight. Case discussed with nursing staff. Labs reviewed. He complains of a sore throat. He looks and feels weak. Plan for physical therapy and occupational therapy evaluation today. Out of bed to chair. Discontinue Ruano catheter. Transfer to the floor. Pulmonary following. Continue oral antibiotics. Exam - Constitutional Vitals: Period Temp Pulse Resp BP Sys/Hart Pulse Ox Last 24 Hr 97.8 F-98.8 F 56-90 14-27 123-153/73-103 93-100 Exam: Constitutional System: No distress. No tremulousness. Alert awake and oriented 3. Head: Normocephalic, atraumatic. Ears, Nose and Throat System: No pain or tenderness. No epistaxis or discharge Eyes System: Pupils equal, round, and reactive. Extraocular muscles intact. Neck: Supple, without adenopathy, No jugular venous distention. Respiratory System: Chest rales bilaterally to auscultation. Cardiovascular System: Heart with regular rate and rhythm. No murmur. GI System: Abdomen soft, nontender. Normo active bowel sounds present. Musculoskeletal System: limbs with no pedal edema. Full distal pulses. Neurological System: No discernable sensory deficit. No aphasia Psychiatric System: Conversation is rational Results - Labs CBC & BMP: 03/14/17 05:25 03/14/17 05:24 Lab Results: I have reviewed the past 24 hour labs - Diagnostic Findings Procedure: Chest x-ray: image reviewed by me, report reviewed by me (Cardiac decompensation)
[2017-03-16] MEDS: FOLIC ACID 1 MG TABLET PO SCH (20:11)
[2017-03-17] MEDS: ALBUTEROL/IPRATROPIUM 3 ML NEB RESP TX SCH ×4 (00:12→19:14)
[2017-03-17] MEDS: methylPREDNISolone SOD SUC 40 MG/1 ML VIAL IV SCH ×3 (00:56→16:49)
[2017-03-17] MEDS: ENOXAPARIN 40 MG/0.4 ML SYRINGE SUBCUT SCH (02:50)
[2017-03-17 05:17] LABS: Basophils % 0.1 % (0.0-0.8); Hematocrit 45.6 VOL% (42.0-52.0); Immature Granulocytes % 0.6 %; Lymphocytes # 0.6 10*3/uL (1.4-4.0); Lymphocytes % 3.8 % (21.2-54.2); Mean Corpuscular HGB Conc 35.1 GM/DL (32-36); Mean Corpuscular Hemoglobin 34 PG (27-34); Mean Corpuscular Volume 97.6 FL (87-102); Mean Platelet Volume 10.8 FL (9.6-12.0); Monocytes # 0.5 10*3/uL (0.11-0.8); Monocytes % 3.4 % (1.7-12.7); Neutrophils # 14.5 10*3/uL (1.4-7.4); Neutrophils % 92.1 % (38.7-73.9); Platelet Count 210 T/CUMM (130-400); Red Blood Count 4.67 MC/CUMM (3.8-5.5); Red Cell Distribution Width 13.2 % (9.3-17.3); White Blood Count 15.7 T/CUMM (4-12)
[2017-03-17 05:40] LABS: Band Neutrophils 1 % (0-10); Hypochromasia 1+; Lymphocytes 3 % (20-55); Platelet Estimate Normal; Segmented Neutrophils 92 % (50-85); Total Cells Counted 100
[2017-03-17 05:50] LABS: Calcium 8.5 MG/DL (8.5-10.1); Magnesium 2.1 MG/DL (1.8-2.4); Osmolality,Calculated 270.1 MOS/KG (273-304); Potassium 3.8 MMOL/L (3.5-5.1)
[2017-03-17] MEDS: THIAMINE 100 MG TABLET PO SCH (08:25)
[2017-03-17] MEDS: NICOTINE 21 MG/24 HR PATCH TRANSDERM SCH (08:25)
[2017-03-17] MEDS: LEVOFLOXACIN 750 MG TABLET PO SCH (08:25)
[2017-03-17] MEDS: MULTIVITAMIN (OCUVITE) TABLET PO SCH ×2 (08:25→20:15)
[2017-03-17] MEDS: DESITIN 4OZ/NYSTATIN 15 GRAM MIXTURE PASTE TOP SCH ×2 (08:25→20:15)
--- NOTE | 2017-03-17 08:34 | Pulmonology Progress Note ---
Pulmonary - PN: Subj Interval history: Patient is a 56-year-old white man who is a heavy smoker and has COPD. He developed respiratory distress and had to be put on the ventilator. He was ventilated for a few days and his lungs are much better. He has been off the ventilator couple days and is doing better. He is still very hoarse but he is coughing okay and feels like his breathing is doing well. He has not done much activity yet. Exam (Progress Note) - Constitutional Vitals: Period Temp Pulse Resp BP Sys/Hart Pulse Ox Last 24 Hr 96.8 F-98.9 F 70-115 18-29 108-132/75-95 93-100 Exam: General appearance: normal weight, no acute distress (Patient is alert and comfortable and talking well. He does not appear to have any respiratory distress.) - Head Head exam: Present: normal inspection, normocephalic - Eye Eye exam: Present: EOMI. Absent: scleral icterus Pupils: Present: PETE - ENT ENT exam: Present: Unremarkable, he is hoarse. - Neck Neck exam: Absent: lymphadenopathy, thyromegaly - Respiratory Respiratory exam: Present: He has fairly good breath sounds bilaterally without any definite wheezing now. His lungs sound okay today. - Cardiovascular Cardiovascular exam: Present: regular rate and rhythm. Absent: gallop, systolic murmur - GI/Abdominal GI/Abdominal exam: Present: normal bowel sounds, soft. Absent: distended, tenderness - Extremities Exam Extremities exam: Absent: calf tenderness, edema, he has no signs of phlebitis. - Neurological Exam Neurological exam: Present: He is alert and talking and moving his extremities. - Psychiatric Psychiatric exam: Absent: anxious - Skin Skin exam: Present: warm, dry Results - Labs CBC & BMP: 03/17/17 05:00 03/17/17 05:00 Assessment and Plan (1) Smoker Status: Chronic Assessment and plan: We will place a nicotine patch and he certainly needs to quit smoking. Current Visit: Yes (2) Acute exacerbation of chronic obstructive airways disease Status: Acute Assessment and plan: The patient comes in with an exacerbation of his COPD . He was ventilated for a few days but is doing much better now. Shortness of breath is much improved and he is not wheezing or coughing now. He continues to do well. Current Visit: Yes (3) Acute respiratory failure Status: Resolved Assessment and plan: The patient had to be ventilated for a few days but is much better now. He is not having any respiratory distress and can increase his activity. Will ask PT to evaluate. He will continue with respiratory therapy Current Visit: Yes Qualifiers: Respiratory failure complication: hypoxia Qualified Code(s): J96.01 - Acute respiratory failure with hypoxia
--- NOTE | 2017-03-17 11:58 | Hospitalist Progress Note ---
Assessment and Plan - Time spent with patient Time spent with patient: Less than 30 minutes (1) Acute exacerbation of chronic obstructive airways disease Status: Acute Assessment and plan: 03/17/17 -Continue antibiotics, steroids, and brochodilators. Pulmonary is following. Greatly appreciate recommendations with care. Final blood culture pending. Will order a.m. labs. Current Visit: Yes (2) Smoker Status: Chronic Assessment and plan: 03/17/17 Nicotine patch ordered and pulmonary re-enforced the need to quit smoking. Will monitor. Current Visit: Yes (3) Acute respiratory failure Status: Resolved Assessment and plan: 03/17/17 Patient no longer on ventilator. No acute distress. Breathing without stridor or wheezing at present. Will continue to monitor. Current Visit: Yes Qualifiers: Respiratory failure complication: hypoxia Qualified Code(s): J96.01 - Acute respiratory failure with hypoxia Hospitalist: Subjective Interval history: 03/17/17 - Mr San feeling better this morning, sitting up in chair watching TV. No acute distress noted. Patient seen and chart reviewed. Patient verbalized coughing up more "stuff" but feels breathing has improved. He denies chest pain, chills or fever. Exam - Constitutional Vitals: Period Temp Pulse Resp BP Sys/Hart Pulse Ox Last 24 Hr 96.8 F-98.9 F 75-115 18-29 108-132/75-95 93-100 General appearance: normal weight, no acute distress - Head Head exam: Present: normal inspection - Eye Eye exam: Present: EOMI Pupils: Present: PETE - Neck Neck exam: Present: normal inspection. Absent: thyromegaly - Respiratory Respiratory exam: Present: other (coarse throughout without any wheezing noted; no stridor noted, no acute distress present; talking without difficulty.). Absent: stridor, wheezes - Cardiovascular Cardiovascular exam: Present: regular rate and rhythm - GI/Abdominal GI/Abdominal exam: Present: normal bowel sounds, soft. Absent: tenderness, rebound - Extremities Exam Extremities exam: Present: full ROM - Neurological Exam Neurological exam: Present: alert, oriented X3 - Psychiatric Psychiatric exam: Present: normal affect, normal mood, other (conversation rational). Absent: agitated, anxious - Skin Skin exam: Present: normal color, warm, dry Results - Labs CBC & BMP: 03/17/17 05:00 03/17/17 05:00 Lab Results: I have reviewed the past 24 hour labs
[2017-03-17] MEDS: FOLIC ACID 1 MG TABLET PO SCH (20:15)
[2017-03-18] MEDS: methylPREDNISolone SOD SUC 40 MG/1 ML VIAL IV SCH ×2 (00:08→12:39)
[2017-03-18] MEDS: ALBUTEROL/IPRATROPIUM 3 ML NEB RESP TX SCH ×4 (00:42→19:48)
[2017-03-18] MEDS: ENOXAPARIN 40 MG/0.4 ML SYRINGE SUBCUT SCH (02:10)
[2017-03-18 06:06] LABS: Basophils % 0.2 % (0.0-0.8); Hematocrit 44.3 VOL% (42.0-52.0); Hemoglobin 15.7 GM/DL (14.0-18.0); Immature Granulocytes % 1.2 %; Immature Granulocytes Absolute 0.24 #; Lymphocytes # 0.7 10*3/uL (1.4-4.0); Lymphocytes % 3.6 % (21.2-54.2); Mean Corpuscular HGB Conc 35.4 GM/DL (32-36); Mean Corpuscular Hemoglobin 35 PG (27-34); Mean Corpuscular Volume 98.7 FL (87-102); Mean Platelet Volume 11.1 FL (9.6-12.0); Monocytes # 0.8 10*3/uL (0.11-0.8); Neutrophils # 18.8 10*3/uL (1.4-7.4); Platelet Count 217 T/CUMM (130-400); Red Blood Count 4.49 MC/CUMM (3.8-5.5); Red Cell Distribution Width 13.1 % (9.3-17.3); White Blood Count 20.6 T/CUMM (4-12)
[2017-03-18 06:36] LABS: Calcium 8.5 MG/DL (8.5-10.1); Magnesium 2.3 MG/DL (1.8-2.4); Osmolality,Calculated 274.7 MOS/KG (273-304)
[2017-03-18 06:42] LABS: Band Neutrophils 4 % (0-10); Hypochromasia 1+; Lymphocytes 1 % (20-55); Platelet Estimate Normal; Segmented Neutrophils 91 % (50-85); Total Cells Counted 100
[2017-03-18] MEDS ORDERED: DEXTROSE 50% 25 GM/50 ML SYRINGE IV PRN (08:30)
--- NOTE | 2017-03-18 09:05 | Pulmonology Progress Note ---
Pulmonary - PN: Subj Interval history: Patient is a 56-year-old white man who is a heavy smoker and has COPD. He developed respiratory distress and had to be put on the ventilator. He was ventilated for a few days and his lungs are much better. He has been off the ventilator a couple days and is doing better. He said he had a fairly good night and is resting better. He sat up in the chair some. He is eating better and his hoarseness is a little better. He feels like his shortness of breath has improved. Overall he is stable. Exam (Progress Note) - Constitutional Vitals: Period Temp Pulse Resp BP Sys/Hart Pulse Ox Last 24 Hr 97.5 F-98.1 F 77-110 18-22 105-130/78-86 91-100 Exam: General appearance: normal weight, no acute distress (Patient is alert and comfortable and talking well. He is still hoarse but not having any distress.) - Head Head exam: Present: normal inspection, normocephalic - Eye Eye exam: Present: EOMI. Absent: scleral icterus Pupils: Present: PETE - ENT ENT exam: Present: Unremarkable, he is hoarse. - Neck Neck exam: Absent: lymphadenopathy, thyromegaly - Respiratory Respiratory exam: Present: He has fairly good breath sounds bilaterally is moving air okay with just some minimal rhonchi. - Cardiovascular Cardiovascular exam: Present: regular rate and rhythm. Absent: gallop, systolic murmur - GI/Abdominal GI/Abdominal exam: Present: normal bowel sounds, soft. Absent: distended, tenderness - Extremities Exam Extremities exam: Absent: calf tenderness, edema, he has no signs of phlebitis. - Neurological Exam Neurological exam: Present: He is alert and talking and moving his extremities. - Psychiatric Psychiatric exam: Absent: anxious - Skin Skin exam: Present: warm, dry Results - Labs CBC & BMP: 03/18/17 05:15 03/18/17 05:15 Assessment and Plan (1) Smoker Status: Chronic Assessment and plan: We will place a nicotine patch and he certainly needs to quit smoking. Current Visit: Yes (2) Acute exacerbation of chronic obstructive airways disease Status: Acute Assessment and plan: The patient comes in with an exacerbation of his COPD . He was ventilated for a few days but is doing much better now. Shortness of breath is much improved and he is not wheezing or coughing now. He continues to do well. He does need to continue with bronchodilator therapy. He can probably go soon. Current Visit: Yes (3) Acute respiratory failure Status: Resolved Assessment and plan: The patient had to be ventilated for a few days but is much better now. He is not having any respiratory distress and can increase his activity. He sat up yesterday and is feeling much better. Current Visit: Yes Qualifiers: Respiratory failure complication: hypoxia Qualified Code(s): J96.01 - Acute respiratory failure with hypoxia
--- NOTE | 2017-03-18 10:01 | Hospitalist Progress Note ---
Assessment and Plan (1) Acute exacerbation of chronic obstructive airways disease Status: Acute Assessment and plan: Continue levaquin Prednisone decreased today Pulmonary assisting Starting mucinex Possible discharge tomorrow Current Visit: Yes (2) Acute respiratory failure Status: Resolved Current Visit: Yes Qualifiers: Respiratory failure complication: hypoxia Qualified Code(s): J96.01 - Acute respiratory failure with hypoxia (3) Smoker Status: Chronic Current Visit: Yes Hospitalist: Subjective Interval history: No acute events overnight. Patient reports that he continues to feel better. Only complaint is of chest congestion with cough not productive of any sputum yet. Possible discharge soon, maybe even tomorrow. Exam - Constitutional Vitals: Period Temp Pulse Resp BP Sys/Hart Pulse Ox Last 24 Hr 97.5 F-98.1 F 77-110 18-22 105-130/78-86 91-100 General appearance: normal weight - Head Head exam: Present: normocephalic, atraumatic - Eye Eye exam: Present: EOMI Pupils: Present: PETE - ENT ENT exam: Present: normal exam - Neck Neck exam: Present: normal inspection - Respiratory Respiratory exam: Present: clear to auscultation bilaterally. Absent: rhonchi, wheezes - Cardiovascular Cardiovascular exam: Present: regular rate and rhythm - GI/Abdominal GI/Abdominal exam: Present: normal bowel sounds, soft. Absent: tenderness, rebound - Extremities Exam Extremities exam: Present: normal inspection - Back Exam Back exam: Present: normal inspection - Neurological Exam Neurological exam: Present: alert, oriented X3 - Psychiatric Psychiatric exam: Present: normal affect, normal mood - Skin Skin exam: Present: warm, intact Results - Labs CBC & BMP: 03/18/17 05:15 03/18/17 05:15
[2017-03-18] MEDS: NICOTINE 21 MG/24 HR PATCH TRANSDERM SCH (10:04)
[2017-03-18] MEDS: THIAMINE 100 MG TABLET PO SCH (10:05)
[2017-03-18] MEDS: LEVOFLOXACIN 750 MG TABLET PO SCH (10:05)
[2017-03-18] MEDS: predniSONE 20 MG TABLET PO SCH (10:05)
[2017-03-18] MEDS: MULTIVITAMIN (OCUVITE) TABLET PO SCH ×2 (10:05→20:34)
[2017-03-18] MEDS: DESITIN 4OZ/NYSTATIN 15 GRAM MIXTURE PASTE TOP SCH (12:37)
[2017-03-18] MEDS: FOLIC ACID 1 MG TABLET PO SCH (20:34)
[2017-03-19] MEDS: ALBUTEROL/IPRATROPIUM 3 ML NEB RESP TX SCH ×4 (00:11→19:57)
[2017-03-19] MEDS: DESITIN 4OZ/NYSTATIN 15 GRAM MIXTURE PASTE TOP SCH ×3 (01:25→21:28)
[2017-03-19] MEDS: ALBUTEROL 2.5 MG/3 ML NEB RESP TX PRN (03:31)
[2017-03-19] MEDS: ENOXAPARIN 40 MG/0.4 ML SYRINGE SUBCUT SCH (04:00)
[2017-03-19] MEDS: MORPHINE 2 MG/1 ML SYRINGE IV PRN ×3 (04:31→21:27)
--- NOTE | 2017-03-19 05:02 | Event Note ---
Called as patient reported to have shortness of breath. Patient is admitted with this year. The patient. He is on p.o. steroid and nebulized treatment. He received a dose of albuterol nebulizer about an hour ago. He is maintaining O2 sat well I have ordered a chest x-ray and the ordered another DuoNeb. Patient is already followed by pulmonary.
[2017-03-19] MEDS ORDERED: ALBUTEROL/IPRATROPIUM 3 ML NEB RESP TX ONE (05:12)
[2017-03-19 06:35] LABS: Basophils % 0.2 % (0.0-0.8); Eosinophils # 0.1 10*3/uL (0.0-0.87); Eosinophils % 0.8 % (0.00-10.9); Hematocrit 45.4 VOL% (42.0-52.0); Hemoglobin 16.1 GM/DL (14.0-18.0); Immature Granulocytes % 3.2 %; Immature Granulocytes Absolute 0.53 #; Lymphocytes # 1.5 10*3/uL (1.4-4.0); Lymphocytes % 9.1 % (21.2-54.2); Mean Corpuscular HGB Conc 35.5 GM/DL (32-36); Mean Corpuscular Hemoglobin 34 PG (27-34); Mean Corpuscular Volume 96.6 FL (87-102); Mean Platelet Volume 11.3 FL (9.6-12.0); Monocytes # 1.2 10*3/uL (0.11-0.8); Monocytes % 7.1 % (1.7-12.7); Neutrophils # 13.1 10*3/uL (1.4-7.4); Neutrophils % 79.6 % (38.7-73.9); Platelet Count 235 T/CUMM (130-400); Red Cell Distribution Width 13.1 % (9.3-17.3); White Blood Count 16.5 T/CUMM (4-12)
--- NOTE | 2017-03-19 08:44 | XRay Report ---
XR chest 1V portable Indication: Shortness of breath Comparison: AP chest 03/16/2017 Technique: Portable AP chest was performed. Findings: Haziness in the lung bases bilaterally present suggesting dependent atelectasis and/or dependent pleural fluid. Heart size appears within normal limits. Upper lungs are clear. Pulmonary vessels demonstrate no significant abnormality. Bones and soft tissues appear within normal limits. Impression: 1. Has been little change in the chest since comparison. Haziness of the lung bases has differential considerations including dependent pleural fluid, basilar atelectasis, edema is not entirely excluded. 03/19/2017 8:38 AM PROCEDURE INTERPRETED AT [facility] DEPARTMENT OF RADIOLOGY Final Report Signed by: Dr. Catracho Mcdaniel
[2017-03-19 08:58] LABS: Band Neutrophils 2 % (0-10); Lymphocytes 8 % (20-55); Platelet Estimate Adequate; Segmented Neutrophils 84 % (50-85); Total Cells Counted 100
[2017-03-19 08:59] LABS: Hypochromasia Slight
[2017-03-19] MEDS: NICOTINE 21 MG/24 HR PATCH TRANSDERM SCH (09:10)
[2017-03-19] MEDS: LEVOFLOXACIN 750 MG TABLET PO SCH (09:11)
[2017-03-19] MEDS: MULTIVITAMIN (OCUVITE) TABLET PO SCH ×2 (09:11→21:28)
[2017-03-19] MEDS: predniSONE 20 MG TABLET PO SCH (09:11)
[2017-03-19] MEDS: THIAMINE 100 MG TABLET PO SCH (09:11)
--- NOTE | 2017-03-19 09:15 | Hospitalist Progress Note ---
Assessment and Plan (1) Acute exacerbation of chronic obstructive airways disease Status: Acute Assessment and plan: Impression: 1. COPD with acute exacerbation and recent episode of acute respiratory failure 2. Pulmonary vascular congestion 3. Possible seizure. Description of the event is not really suggestive of a seizure to me. Plan: Begin diuresis. Continue bronchodilators. Observe for any other [employer] events. This note was completed using [employer] voice recognition software. There may be tool checker errors as a result. Current Visit: Yes Hospitalist: Subjective Interval history: Follow-up COPD with acute exacerbation and acute respiratory failure. The patient had an episode of dyspnea early this morning. Chest x-ray looked like bilateral pleural effusion. I suspect that he became volume overloaded when he was in the ICU. He appears dyspneic at rest, with expiratory wheezing and a prolonged expiratory phase. He says that he had a "seizure" last night. He says that someone was in the room with him, and he told them he felt like he might pass out. When he regained consciousness, he was banging on the bedside table. His sister says that he has had episodes of "blacking out" when he was a child. There is no prior history of any seizures. The patient did not lose control of bowels or bladder Exam - Constitutional Vitals: Period Temp Pulse Resp BP Sys/Hart Pulse Ox Last 24 Hr 97.2 F-97.9 F 71-103 17-24 115-122/71-77 95-99 Vital signs are noted above. Heart is regular with distant tones. Heart tones are somewhat obscured by lung sounds. He has a prolonged expiratory phase with diffuse expiratory wheezing. He is awake and somewhat anxious. Results - Labs CBC & BMP: 03/19/17 04:54 03/18/17 05:15 Lab Results: I have reviewed the past 24 hour labs - Diagnostic Findings Procedure: Chest x-ray: image reviewed by me (Chest x-ray shows pulmonary vascular congestion)
[2017-03-19] MEDS: FUROSEMIDE 20 MG/2 ML VIAL IV SCH ×2 (10:35→15:40)
--- NOTE | 2017-03-19 11:14 | Pulmonology Progress Note ---
Pulmonary - PN: Subj Interval history: This is a 57-year-old male who has been on the ventilator with COPD exacerbation. He is better but he still short of breath. He is beginning to move around a bit. Patient was seen along with his sister. Kiya Flynn RN was present. The most striking thing on this patient's physical exam is she has a laryngeal wheeze/stridor. He is very hoarse. His sister said that she noticed this a long time before he developed his acute illness. At some point we should consider an ENT evaluation on this patient. He may just have vocal cord trauma from his endotracheal tube. Have to consider vocal cord lesions and paralysis. Today's chest x-ray shows a normal-sized heart. Pulmonary arteries are top normal. Patient has some residual atelectasis at both bases. This is a portable film Microbiology. No positive cultures Lab. White count is 16,500 with 80 segs. H&H 16.1/45.4 and platelets of 235, 000. Recent creatinine was 0.5 with a BUN of 13 and normal electrolytes. Physical exam. General. Short of breath Neurologic. Patient's voice is very hoarse. Moves all 4 extremities Face. Symmetrical. No edema of the lips or tongue Neck. Symmetrical. No meningismus Chest. Laryngeal and proximal tracheal stridor/wheeze Heart. No gallop Abdomen. Nondistended nontender. Positive bowel sounds Extremities. Nothing to suggest deep venous thrombophlebitis. The remainder the exam is noncontributory. Plan. 1. Continue present regimen 2. Consider ENT exam. Note tracheal and laryngeal wheeze/ Exam (Progress Note) - Constitutional Vitals: Period Temp Pulse Resp BP Sys/Hart Pulse Ox Last 24 Hr 97.2 F-97.9 F 71-103 17-24 115-122/71-77 95-99 Results - Labs CBC & BMP: 03/19/17 04:54 03/18/17 05:15
[2017-03-19] MEDS ORDERED: FUROSEMIDE 20 MG/2 ML VIAL IV SCH (16:00)
[2017-03-19] MEDS: FOLIC ACID 1 MG TABLET PO SCH (21:28)
[2017-03-20] MEDS: ALBUTEROL/IPRATROPIUM 3 ML NEB RESP TX SCH ×4 (00:37→19:50)
[2017-03-20] MEDS: ALBUTEROL 2.5 MG/3 ML NEB RESP TX PRN (02:19)
[2017-03-20] MEDS: ENOXAPARIN 40 MG/0.4 ML SYRINGE SUBCUT SCH (02:41)
[2017-03-20] MEDS: MORPHINE 2 MG/1 ML SYRINGE IV PRN (05:36)
[2017-03-20] MEDS ORDERED: methylPREDNISolone SOD SUC 125 MG/2 ML VIAL IV ONE (06:03)
[2017-03-20] MEDS ORDERED: EPINEPHrine 1 MG/ML VIAL SUBCUT ONE (06:05)
[2017-03-20 07:23] LABS: ABG Base Excess 2.7 MMOL/L (-2.5-2.5); ABG HCO3 26.7 MMOL/L (20-26); ABG Oxygen Saturation 96.3 % (95-100); ABG PCO2 50.8 MM HG (35-48); ABG PH 7.371 (7.35-7.45); ABG PO2 90.6 MM HG (80-95); ABG TCO2 24.5 MMOL/L (23-27)
--- NOTE | 2017-03-20 07:32 | Hospitalist Progress Note ---
Assessment and Plan (1) Acute exacerbation of chronic obstructive airways disease Status: Acute Assessment and plan: Impression: 1. COPD with acute exacerbation and episode of acute hypercarbic respiratory failure 2. Pulmonary vascular congestion 3. Possible seizure Plan: He is oxygenating adequately. We will transfer to the ICU and began BiPAP. Goal will be for oxygen saturation of 88-92%. Continue IV steroids, nebulized bronchodilators, and antibiotics. Further recommendations per pulmonary. He does not appear to require intubation at this time, but I am afraid he might progress to that shortly if things do not turn around with the BiPAP. This note was completed using [employer] voice recognition software. There may be anime designer errors as a result. Current Visit: Yes Hospitalist: Subjective Interval history: Follow-up COPD with acute exacerbation. Rapid response was called at about 7 AM this morning. The patient had developed some respiratory distress earlier, and had been given some Solu- Medrol and subcutaneous epinephrine by pulmonary. This did not improve the patient's situation, so a rapid response was called. When I arrived, the patient was sitting up in bed. He was able to speak and move all 4 extremities. The nursing staff had noted a prolonged expiratory phase with a diminished amount of air movement. Exam - Constitutional Vitals: Period Temp Pulse Resp BP Sys/Hart Pulse Ox Last 24 Hr 96.4 F-98.3 F 71-115 17-20 112-115/76-90 75-99 The patient appears to be in acute respiratory distress. Heart is regular with distant tones. There is almost no air movement on auscultation of the chest. He has bilateral expiratory wheezes with some possible stridor. Abdomen is soft with good bowel sounds. There is no significant peripheral edema. He is awake and moves all 4 extremities. Results - Labs CBC & BMP: 03/19/17 04:54 03/18/17 05:15 Lab Results: I have reviewed the past 24 hour labs (ABGs reflect new hypercarbia with respiratory acidosis.) - EKG EKG results: sinus rhythm (EKG shows a sinus mechanism with right axis deviation and some nonspecific ST changes.) - Diagnostic Findings Procedure: Chest x-ray: image reviewed by me (Chest x-ray shows no pneumothorax or new infiltrate.)
--- NOTE | 2017-03-20 07:37 | EKG Report ---
Stationary ECG Study [facility] Test Date: 03/20/2017 7:10:59 AM Pat Name: ENEIDA MCLAUGHLIN Department: Room: 527 Gender: M Pediatric Intensive Physician: TAMI : [id number] Requested by: Escobar Carrera Order Number: [id number] Reading MD: ODALYS CORTES Intervals [place] Rate: 111 P: 64 AR: 138 QRS: 101 QRSD: 92 T: 66 QT: 315 QTc: 381 Interpretive Statements SINUS TACHYCARDIA RIGHT AXIS DEVIATION RIGHT VENTRICULAR HYPERTROPHY MODERATE ST DEPRESSION Electronically Signed On 03-20-17 17:05:02 CDT by ODALYS CORTES [email or web address]
[2017-03-20 07:39] LABS: Basophils # 0.1 10*3/uL (0.0-0.2); Basophils % 0.4 % (0.0-0.8); Eosinophils # 0.2 10*3/uL (0.0-0.87); Eosinophils % 0.6 % (0.00-10.9); Hematocrit 48.5 VOL% (42.0-52.0); Hemoglobin 16.9 GM/DL (14.0-18.0); Immature Granulocytes % 2.1 %; Immature Granulocytes Absolute 0.54 #; Lymphocytes # 1.7 10*3/uL (1.4-4.0); Lymphocytes % 6.6 % (21.2-54.2); Mean Corpuscular HGB Conc 34.8 GM/DL (32-36); Mean Corpuscular Hemoglobin 34 PG (27-34); Mean Corpuscular Volume 98.2 FL (87-102); Mean Platelet Volume 10.4 FL (9.6-12.0); Monocytes # 1.7 10*3/uL (0.11-0.8); Monocytes % 6.7 % (1.7-12.7); Neutrophils # 21.4 10*3/uL (1.4-7.4); Neutrophils % 83.6 % (38.7-73.9); Platelet Count 238 T/CUMM (130-400); Red Blood Count 4.94 MC/CUMM (3.8-5.5); Red Cell Distribution Width 13.2 % (9.3-17.3); White Blood Count 25.5 T/CUMM (4-12)
[2017-03-20 08:00] LABS: Calcium 9.2 MG/DL (8.5-10.1); Osmolality,Calculated 267.2 MOS/KG (273-304); Potassium 3.6 MMOL/L (3.5-5.1)
[2017-03-20 08:24] LABS: Band Neutrophils 2 % (0-10); Lymphocytes 5 % (20-55); Segmented Neutrophils 85 % (50-85); Total Cells Counted 100
[2017-03-20 08:25] LABS: Hypochromasia Slight; Platelet Estimate Adequate
--- NOTE | 2017-03-20 08:36 | XRay Report ---
XR chest 1V portable Indication: Respiratory distress Comparison: Chest x-ray 03/19/2017 Technique: Portable AP chest was performed. Findings: Interval partial clearing of the lung bases is demonstrated. Minimal residual linear and reticular interstitial markings remain in the cardiophrenic angles. Chest is otherwise stable. Impression: 1. Interval partial clearing of the lung bases is demonstrated suggesting improving edema and/or atelectasis. 03/20/2017 8:32 AM PROCEDURE INTERPRETED AT [facility] DEPARTMENT OF RADIOLOGY Final Report Signed by: Dr. Catracho Mcdaniel
--- NOTE | 2017-03-20 09:23 | Pulmonology Progress Note ---
Pulmonary - PN: Subj Interval history: This is a 57-year-old male who has been on the ventilator with COPD exacerbation. He is better but he still short of breath. He is beginning to move around a bit. Patient was seen along with his sister. Kiya Flynn RN was present. The most striking thing on this patient's physical exam is she has a laryngeal wheeze/stridor. He is very hoarse. His sister said that she noticed this a long time before he developed his acute illness. At some point we should consider an ENT evaluation on this patient. He may just have vocal cord trauma from his endotracheal tube. Have to consider vocal cord lesions and paralysis. Today's chest x-ray shows a normal-sized heart. Pulmonary arteries are top normal. Patient has some residual atelectasis at both bases. This is a portable film Microbiology. No positive cultures Lab. White count is 16,500 with 80 segs. H&H 16.1/45.4 and platelets of 235, 000. Recent creatinine was 0.5 with a BUN of 13 and normal electrolytes. 03/20/2017. Earlier this morning patient had increased difficulty with his breathing. He was started on steroids and I gave is 0.1 cc of epinephrine subcu. This did not help. Patient maintained good oxygenation but he had trouble moving air back and forth. He was subsequently moved to CCU and was started on BiPAP of 07/27. This worked well and is been able to move air much better. His chest x-ray shows slight increase in interstitial markings in both bases. No clear-cut infiltrates. No evidence of congestive heart failure. There are no positive cultures. For moving to ICU his ABGs showed a pH 7.37, PCO2 50.8, PO2 of 90.6 and a bicarb of 26.7. Follow-up ABGs are pending. Patient's is present. We have discussed the risk and possibilities. If the patient does not do well he would need to be reintubated. At the present time it looks like he is going to improve. The most prominent finding is a terrific laryngeal stridor. Physical exam. General. Short of breath Neurologic. Patient's voice is very hoarse. Moves all 4 extremities Face. Symmetrical. No edema of the lips or tongue Neck. Symmetrical. No meningismus Chest. Laryngeal and proximal tracheal stridor/wheeze Heart. No gallop Abdomen. Nondistended nontender. Positive bowel sounds Extremities. Nothing to suggest deep venous thrombophlebitis. The remainder the exam is noncontributory. Plan. 03/19/2017 1. Continue present regimen 2. Consider ENT exam. Note tracheal and laryngeal wheeze/stridor. 03/20/2017. 1. BiPAP 2. Moved to CCU 3. If worsens consider intubation mechanical ventilation 4. Consider ENT consultation for vocal cord evaluation 5. Follow-up chest x-ray and ABGs 6. ABGs 1 hour on BiPAP. Patient Exam (Progress Note) - Constitutional Vitals: Period Temp Pulse Resp BP Sys/Hart Pulse Ox Last 24 Hr 96.4 F-98.0 F 71-112 17-20 112-150/76-102 75-100 Results - Labs CBC & BMP: 03/20/17 07:28 03/20/17 07:28
[2017-03-20] MEDS ORDERED: SUCCINYLCHOLINE 200 MG/10 ML VIAL ONE (09:52)
[2017-03-20] MEDS ORDERED: PROPOFOL 1,000 MG/100 ML BOTTLE IV ONE (09:52)
[2017-03-20] MEDS ORDERED: PROPOFOL 200 MG/20 ML VIAL IV ONE ×3 (09:52→10:02)
[2017-03-20] MEDS ORDERED: SUCCINYLCHOLINE 200 MG/10 ML VIAL IV ONE (10:02)
[2017-03-20] MEDS: PROPOFOL 1,000 MG/100 ML BOTTLE IV SCH ×4 (10:08→22:45)
[2017-03-20 10:59] LABS: ABG Base Excess 1.7 MMOL/L (-2.5-2.5); ABG Oxygen Saturation 99.7 % (95-100); ABG PCO2 41.9 MM HG (35-48); ABG PH 7.411 (7.35-7.45); ABG TCO2 22.4 MMOL/L (23-27); Allen Test Positive; Pt O2 Delivery Device Ventilator
--- NOTE | 2017-03-20 11:24 | XRay Report ---
XR chest 1V portable Indication: Endotracheal tube placement. Comparison: Chest x-ray 03/20/2017. Technique: Portable AP chest was performed. Findings: Endotracheal tube terminates at the level of aortic knob. NG tube terminates within the gastric fundus. The heart size is within normal limits. Left cardiophrenic angle is opacified and left hemidiaphragm is not well-visualized. Additionally, Limited inspiration is present compared to the prior study and stranding in the right lung base has increased which may reflect worsening atelectasis. The mid and upper lungs are clear. Bones and soft tissues demonstrate no significant abnormalities. Impression: 1. Interval placement of endotracheal tube as detailed. 2. Atelectasis in the left lower lobe is suggested. 3. Nonspecific stranding in the lung bases has differential considerations including atelectatic change, chronic disease, scarring, infection, and mild edema. 03/20/2017 11:20 AM PROCEDURE INTERPRETED AT [facility] DEPARTMENT OF RADIOLOGY Final Report Signed by: Dr. Catracho Mcdaniel
[2017-03-20] MEDS: NICOTINE 21 MG/24 HR PATCH TRANSDERM SCH (11:35)
[2017-03-20] MEDS: THIAMINE 100 MG TABLET PO SCH (11:35)
[2017-03-20] MEDS: MULTIVITAMIN (OCUVITE) TABLET PO SCH ×2 (11:35→21:30)
[2017-03-20] MEDS: LEVOFLOXACIN 750 MG TABLET PO SCH (11:35)
[2017-03-20] MEDS: FUROSEMIDE 20 MG/2 ML VIAL IV SCH ×2 (11:36→15:39)
[2017-03-20] MEDS: DESITIN 4OZ/NYSTATIN 15 GRAM MIXTURE PASTE TOP SCH ×2 (11:37→21:32)
[2017-03-20] MEDS ORDERED: methylPREDNISolone SOD SUC 40 MG/1 ML VIAL IV SCH (15:00)
[2017-03-20] MEDS: methylPREDNISolone SOD SUC 40 MG/1 ML VIAL IV SCH ×2 (15:40→23:19)
[2017-03-20] MEDS: FOLIC ACID 1 MG TABLET PO SCH (21:30)
[2017-03-21] MEDS: ALBUTEROL 2.5 MG/3 ML NEB RESP TX PRN (00:22)
[2017-03-21] MEDS: ALBUTEROL/IPRATROPIUM 3 ML NEB RESP TX SCH ×4 (00:24→19:28)
[2017-03-21] MEDS: PROPOFOL 1,000 MG/100 ML BOTTLE IV SCH ×5 (03:20→22:15)
[2017-03-21 03:34] LABS: ABG Base Excess 6.8 MMOL/L (-2.5-2.5); ABG HCO3 30.6 MMOL/L (20-26); ABG Oxygen Saturation 99.5 % (95-100); ABG PCO2 38.5 MM HG (35-48); ABG PH 7.504 (7.35-7.45); ABG TCO2 25.5 MMOL/L (23-27); Allen Test Positive; Pt O2 Delivery Device Ventilator
[2017-03-21] MEDS: ENOXAPARIN 40 MG/0.4 ML SYRINGE SUBCUT SCH (03:52)
--- NOTE | 2017-03-21 07:54 | Pulmonology Progress Note ---
Pulmonary - PN: Subj Interval history: Patient is a 56-year-old white man who is a heavy smoker and has COPD. He developed respiratory distress and had to be put on the ventilator. He was ventilated for a few days and his lungs are much better. He has been off the ventilator a couple days and is doing better. Last week he was doing reasonably well and was comfortable. He still has some hoarseness but was coughing okay. Apparently this weekend he got worse and started having more respiratory distress. He had to be reintubated yesterday. He may have a vocal cord lesion. He will be evaluated by ENT today. He is stable on the ventilator at present. His chest x-ray is clear. Exam (Progress Note) - Constitutional Vitals: Period Temp Pulse Resp BP Sys/Hart Pulse Ox Last 24 Hr 97 F-98.0 F 70-126 10-21 84-179/53-126 74-100 Exam: General appearance: normal weight, no acute distress (Patient is sedated and comfortable on the ventilator.) - Head Head exam: Present: normal inspection, normocephalic - Eye Eye exam: Present: EOMI. Absent: scleral icterus Pupils: Present: PETE - ENT ENT exam: Present: ET tube in good position. - Neck Neck exam: Absent: lymphadenopathy, thyromegaly - Respiratory Respiratory exam: Present: He has fairly good breath sounds bilaterally and has good air movement with no increased wheezing. - Cardiovascular Cardiovascular exam: Present: regular rate and rhythm. Absent: gallop, systolic murmur - GI/Abdominal GI/Abdominal exam: Present: normal bowel sounds, soft. Absent: distended, tenderness - Extremities Exam Extremities exam: Absent: calf tenderness, edema, he has no signs of phlebitis. - Neurological Exam Neurological exam: Present: He is sedated on the ventilator at present. - Psychiatric Psychiatric exam: Absent: anxious - Skin Skin exam: Present: warm, dry Results - Labs CBC & BMP: 03/20/17 07:28 03/20/17 07:28 Labs: PO2 is 218 with a PCO2 of 38 and a pH of 7.5 - Diagnostic Findings Procedure: Chest x-ray: image reviewed by me, report reviewed by me (Chest x- ray shows COPD changes but no infiltrates.) Assessment and Plan (1) Smoker Status: Chronic Assessment and plan: We will place a nicotine patch and he certainly needs to quit smoking. Current Visit: Yes (2) Acute exacerbation of chronic obstructive airways disease Status: Acute Assessment and plan: The patient comes in with an exacerbation of his COPD . He was intubated for a few days and then came off the ventilator okay. This weekend he apparently had worsening stridor and had to be reintubated. He may have a vocal cord lesion. He will be evaluated by ENT. Current Visit: Yes (3) Acute respiratory failure Status: Resolved Assessment and plan: The patient had to be ventilated for a few days and was doing okay last week. He was very hoarse but was talking and comfortable. He apparently was in more distress yesterday and had to be intubated. He likely has an upper airway lesion. Current Visit: Yes Qualifiers: Respiratory failure complication: hypoxia Qualified Code(s): J96.01 - Acute respiratory failure with hypoxia
--- NOTE | 2017-03-21 08:23 | XRay Report ---
XR chest 1V portable Indication: Ventilator Comparison: Chest x-ray dated March 20, 2017 Technique: Single frontal view of the chest. Findings: The cardiomediastinal silhouette is stable in configuration. Endotracheal tube tip stable in positioning. Stable to minimally improved bibasilar atelectasis/consolidation. Visualized osseous and surrounding soft tissue structures appear grossly unchanged. IMPRESSION: As above. PROCEDURE INTERPRETED AT [facility] DEPARTMENT OF RADIOLOGY Final Report Signed by: Dr Ezequiel Trent
--- NOTE | 2017-03-21 08:34 | Hospitalist Progress Note ---
Assessment and Plan - Time spent with patient Time spent with patient: Greater than 30 minutes (1) COPD (chronic obstructive pulmonary disease) Status: Acute Current Visit: No (2) Acute respiratory failure Status: Resolved Current Visit: Yes Qualifiers: Respiratory failure complication: hypoxia Qualified Code(s): J96.01 - Acute respiratory failure with hypoxia (3) Smoker Status: Chronic Assessment and plan: He is on ventilatory support, breathing treatment, antibiotics and steroids. Will continue the same, pulmonology is following with airway management. On IV Lasix for possible pulmonary congestion. Monitor input and output and renal function. ENT has been consulted. DVT prophylaxisLovenox Protonix for GI prophylaxis while on steroids. Current Visit: Yes Hospitalist: Subjective Interval history: This is my first encounter with this 56-year-old man who was originally admitted to the floor for COPD exacerbation, his condition deteriorated and he was transferred to the intensive care unit yesterday. He is now intubated and pulmonology is on board vent management. Review of his labs shows marked leukocytosis which I suspect is due to steroid therapy. No fever Chest x-ray looks only slightly better compared to the previous films. Exam - Constitutional Vitals: Period Temp Pulse Resp BP Sys/Hart Pulse Ox Last 24 Hr 97 F-98.0 F 70-126 10-21 84-179/53-126 74-100 Results - Labs CBC & BMP: 03/20/17 07:28 03/20/17 07:28
[2017-03-21] MEDS: methylPREDNISolone SOD SUC 40 MG/1 ML VIAL IV SCH ×3 (08:42→23:25)
[2017-03-21] MEDS: NICOTINE 21 MG/24 HR PATCH TRANSDERM SCH (08:43)
[2017-03-21] MEDS: THIAMINE 100 MG TABLET PO SCH (08:43)
[2017-03-21] MEDS: LEVOFLOXACIN 750 MG TABLET PO SCH (08:43)
[2017-03-21] MEDS: MULTIVITAMIN (OCUVITE) TABLET PO SCH ×2 (08:43→21:15)
[2017-03-21] MEDS: FUROSEMIDE 20 MG/2 ML VIAL IV SCH ×2 (08:44→18:39)
[2017-03-21] MEDS: DESITIN 4OZ/NYSTATIN 15 GRAM MIXTURE PASTE TOP SCH ×2 (11:40→21:15)
--- NOTE | 2017-03-21 12:45 | Consultation ---
Assessment and Plan - Time spent with patient Time spent with patient: Less than 30 minutes (1) Stridor Status: Acute Assessment and plan: Bedside laryngoscopy was suboptimal because of ET tube but I saw no gross lesions that would cause the patient stridor. I would recommend re-extubation preferably tomorrow/Tuesday as I will be in the hospital and could potentially walk over and evaluate if he was having any problem at the time. If he continues to have problem we may have to discuss alternative recommendations such as immediate placement on CPAP/BiPAP or potentially tracheostomy. I will continue to follow this patient intermittently. Thank you very much for this consultation. Current Visit: Yes (2) Acute exacerbation of chronic obstructive airways disease Status: Acute Current Visit: Yes (3) Acute respiratory failure Status: Resolved Current Visit: Yes Qualifiers: Respiratory failure complication: hypoxia Qualified Code(s): J96.01 - Acute respiratory failure with hypoxia (4) Smoker Status: Chronic Current Visit: Yes History of Present Illness - Data of Consult Patient: new to practice Consult date: 03/21/17 - Consult Narrative Reason for consult: Stridor, possible vocal fold lesion History of present illness: Mr. San is a 57 year old male with a history of failed extubation with immediate stridor secondary to possible vocal fold lesion requiring emergent reintubation. Ultimately he was then taken back to the ICU. ENT is consulted to evaluate. CC: Garo Pennington MD - Home Medications and Allergies Home Medications: Home Medications Medication Instructions Recorded Confirmed Type No Known Home Medications [No 03/13/17 03/13/17 History Known Home Medications] Allergies/Adverse Reactions: Allergies Allergy/AdvReac Type Severity Reaction Status Date / Time No Known Allergies Allergy Verified 12/18/15 23:34 ROS unobtainable: due to endotracheal tube Medical,Surgical,& Family Hx - Medical History HEENT: History of: Ear Problem (ear infection) Respiratory: History of: COPD Gastrointestinal: History of: GERD, Liver Problems (enlarged liver), Pancreatitis, GI Problems (hiatal hernia) Musculoskeletal: History of: Back/Neck Problems - Surgical History Abdominal Surgeries: Surgical HX of: Cholecystectomy - Family History Family History: Reports;: Family Cancer (grandfather-lung,dad-brain/lung, grandmother-breast, aunt-"female"), Family Diabetes (grandmothers), Family Hypertension (mother), Family Stroke (mother ahd multiple cvas) Denies;: Family Anesthesia Reaction, Family Heart Disease, Family Psychiatric Problems - Social History Smoking Status: Current every day smoker Frequency of Alcohol Use: None Type of Drug Use: None Exam - Constitutional Vitals: Period Temp Pulse Resp BP Sys/Hart Pulse Ox Last 24 Hr 96.7 F-98.0 F 70-110 10-25 84-108/53-72 96-100 General appearance: normal weight (Currently on the ventilator sedated) - Head Head exam: Present: normal inspection, normocephalic - ENT ENT exam: Present: normal exam, normal external ear exam, normal oropharynx, other (Bedside laryngoscopy revealed no gross laryngeal lesion though suboptimal exam secondary to intubation.) - Neck Neck exam: Present: normal inspection - Respiratory Respiratory exam: Present: other (Currently on the ventilator sedated) - Cardiovascular Cardiovascular exam: Present: regular rate and rhythm - GI/Abdominal GI/Abdominal exam: Present: soft - Extremities Exam Extremities exam: Present: normal inspection, normal capillary refill - Neurological Exam Neurological exam: Present: other (Unable to assess as he is intubated and sedated) - Psychiatric Psychiatric exam: Present: other (Unable to assess as he is intubated and sedated) - Skin Skin exam: Present: normal color, warm Results - Labs CBC & BMP: 03/20/17 07:28 03/20/17 07:28 Lab Results: I have reviewed the past 24 hour labs
[2017-03-21] MEDS: FOLIC ACID 1 MG TABLET PO SCH (21:15)
[2017-03-22] MEDS: ALBUTEROL/IPRATROPIUM 3 ML NEB RESP TX SCH ×4 (00:25→19:24)
[2017-03-22] MEDS: PROPOFOL 1,000 MG/100 ML BOTTLE IV SCH ×3 (02:55→11:00)
[2017-03-22] MEDS: ENOXAPARIN 40 MG/0.4 ML SYRINGE SUBCUT SCH (03:15)
[2017-03-22 03:50] LABS: ABG Base Excess 8.5 MMOL/L (-2.5-2.5); ABG HCO3 32.3 MMOL/L (20-26); ABG Oxygen Saturation 98.5 % (95-100); ABG PCO2 41.6 MM HG (35-48); ABG PH 7.502 (7.35-7.45); ABG TCO2 27.2 MMOL/L (23-27); Allen Test Positive; Pt O2 Delivery Device Ventilator
[2017-03-22] MEDS ORDERED: diphenhydrAMINE 50 MG/1 ML VIAL IV ONE (04:15)
[2017-03-22] MEDS: methylPREDNISolone SOD SUC 40 MG/1 ML VIAL IV SCH ×3 (06:35→23:14)
--- NOTE | 2017-03-22 08:20 | XRay Report ---
XR chest 1V portable Indication: Ventilator Comparison: Chest x-ray dated March 21, 2017 Technique: Single frontal view of the chest. Findings: Endotracheal tube stable in positioning. The cardiomediastinal silhouette is stable in configuration. The lungs are somewhat hyperinflated which may reflect COPD. No new focal consolidation or pneumothorax. Visualized osseous and surrounding soft tissue structures appear grossly unchanged. IMPRESSION: No adverse interval change. PROCEDURE INTERPRETED AT [facility] DEPARTMENT OF RADIOLOGY Final Report Signed by: Dr Ezequiel Trent
--- NOTE | 2017-03-22 08:36 | Pulmonology Progress Note ---
Pulmonary - PN: Subj Interval history: Patient is a 56-year-old white man who is a heavy smoker and has COPD. He developed respiratory distress and had to be put on the ventilator. He was ventilated for a few days and his lungs are much better. He has been off the ventilator a couple days and is doing better. Last week he was doing reasonably well and was comfortable. He still has some hoarseness but was coughing okay. Apparently this weekend he got worse and started having more respiratory distress. He had to be reintubated yesterday. He may have a vocal cord lesion. He has been fairly stable on the ventilator and will try to extubate him soon. Then he will need a better look at his upper airway. Exam (Progress Note) - Constitutional Vitals: Period Temp Pulse Resp BP Sys/Hart Pulse Ox Last 24 Hr 96.7 F-97.3 F 60-95 10-27 88-110/63-82 96-100 Exam: General appearance: normal weight, no acute distress (Patient is sedated and comfortable on the ventilator.) - Head Head exam: Present: normal inspection, normocephalic - Eye Eye exam: Present: EOMI. Absent: scleral icterus Pupils: Present: PETE - ENT ENT exam: Present: ET tube in good position. - Neck Neck exam: Absent: lymphadenopathy, thyromegaly - Respiratory Respiratory exam: Present: He has fairly good breath sounds bilaterally and has good air movement with no increased wheezing. - Cardiovascular Cardiovascular exam: Present: regular rate and rhythm. Absent: gallop, systolic murmur - GI/Abdominal GI/Abdominal exam: Present: normal bowel sounds, soft. Absent: distended, tenderness - Extremities Exam Extremities exam: Absent: calf tenderness, edema, he has no signs of phlebitis. - Neurological Exam Neurological exam: Present: He is sedated on the ventilator at present. - Psychiatric Psychiatric exam: Absent: anxious - Skin Skin exam: Present: warm, dry Results - Labs CBC & BMP: 03/20/17 07:28 03/20/17 07:28 Labs: His PO2 is 118 with a PCO2 of 41 and pH of 7.50 - Diagnostic Findings Procedure: Chest x-ray: image reviewed by me, report reviewed by me (Chest x- ray still clear.) Assessment and Plan (1) Smoker Status: Chronic Assessment and plan: We will place a nicotine patch and he certainly needs to quit smoking. Current Visit: Yes (2) Acute exacerbation of chronic obstructive airways disease Status: Acute Assessment and plan: The patient comes in with an exacerbation of his COPD . He was intubated for a few days and then came off the ventilator okay. This weekend he apparently had worsening stridor and had to be reintubated. He is stable on the ventilator again. We will try to extubate today. Current Visit: Yes (3) Acute respiratory failure Status: Acute Assessment and plan: The patient had to be ventilated for a few days and was doing okay last week. He was very hoarse but was talking and comfortable. He apparently was in more distress yesterday and had to be intubated. He is doing well now on the ventilator. Current Visit: Yes Qualifiers: Respiratory failure complication: hypoxia Qualified Code(s): J96.01 - Acute respiratory failure with hypoxia
[2017-03-22] MEDS: MULTIVITAMIN (OCUVITE) TABLET PO SCH ×2 (09:38→20:31)
[2017-03-22] MEDS: THIAMINE 100 MG TABLET PO SCH (09:38)
[2017-03-22] MEDS: LEVOFLOXACIN 750 MG TABLET PO SCH (09:39)
[2017-03-22] MEDS: NICOTINE 21 MG/24 HR PATCH TRANSDERM SCH (09:39)
[2017-03-22] MEDS: FUROSEMIDE 20 MG/2 ML VIAL IV SCH ×2 (09:40→17:28)
[2017-03-22 10:02] LABS: Allen Test Positive; Pt O2 Delivery Device Ventilator
[2017-03-22 10:03] LABS: ABG Base Excess 9.8 MMOL/L (-2.5-2.5); ABG HCO3 33.6 MMOL/L (20-26); ABG Oxygen Saturation 99.3 % (95-100); ABG PCO2 39.7 MM HG (35-48); ABG PH 7.532 (7.35-7.45); ABG TCO2 27.5 MMOL/L (23-27)
--- NOTE | 2017-03-22 11:05 | Progress Note ---
Assessment and Plan - Time spent with patient Time spent with patient: Less than 30 minutes (1) Stridor Status: Acute Assessment and plan: Bedside laryngoscopy was suboptimal because of ET tube but I saw no gross lesions that would cause the patient stridor. I would recommend re-extubation preferably tomorrow/Tuesday as I will be in the hospital and could potentially walk over and evaluate if he was having any problem at the time. If he continues to have problem we may have to discuss alternative recommendations such as immediate placement on CPAP/BiPAP or potentially tracheostomy. I will continue to follow this patient intermittently. Thank you very much for this consultation. 03/22/2017 The patient tolerated extubation well with no evidence of stridor for the first 30 minutes after extubation feel the patient will not need any intervention or more aggressive management of the airway. I will sign off on this case but I think you for consulting me if there are any additional questions or concerns please do not hesitate to notify me. Current Visit: Yes (2) Acute exacerbation of chronic obstructive airways disease Status: Acute Current Visit: Yes (3) Acute respiratory failure Status: Acute Current Visit: Yes Qualifiers: Respiratory failure complication: hypoxia Qualified Code(s): J96.01 - Acute respiratory failure with hypoxia (4) Smoker Status: Chronic Current Visit: Yes Family Medicine PN Sub Interval history: Follow-up from yesterday's visit I was present during the extubation of Mr. San. It went smoothly and as expected he reported no difficulty breathing no shortness of breath no stridor no evidence of any difficulty no nausea vomiting he tolerated the procedure well. Exam (Progress Note) - Constitutional Vitals: Period Temp Pulse Resp BP Sys/Hart Pulse Ox Last 24 Hr 96.7 F-97.3 F 60-88 10-27 88-110/63-82 96-100 General appearance: normal weight, no acute distress - Head Head exam: Present: normal inspection, normocephalic - ENT ENT exam: Present: normal exam, normal external ear exam, normal oropharynx, other (Present during extubation tolerated the procedure well) - Neck Neck exam: Present: normal inspection - Respiratory Respiratory exam: Present: other (No shortness of breath difficulty breathing or stridor) - Cardiovascular Cardiovascular exam: Present: regular rate and rhythm - GI/Abdominal GI/Abdominal exam: Present: soft (Nasogastric tube in place) - Extremities Exam Extremities exam: Present: normal inspection, normal capillary refill - Neurological Exam Neurological exam: Present: alert, oriented X3, CN II-XII intact - Psychiatric Psychiatric exam: Present: normal affect, normal mood - Skin Skin exam: Present: normal color, warm Results - Labs CBC & BMP: 03/20/17 07:28 03/20/17 07:28 Lab Results: I have reviewed the past 24 hour labs
[2017-03-22] MEDS: DESITIN 4OZ/NYSTATIN 15 GRAM MIXTURE PASTE TOP SCH ×2 (14:29→20:31)
--- NOTE | 2017-03-22 15:53 | Hospitalist Progress Note ---
Assessment and Plan (1) Acute exacerbation of chronic obstructive airways disease Status: Acute Assessment and plan: Continue antibiotics, bronchodilators, corticosteroids. Pulmonary following. Status post extubation. Current Visit: Yes (2) Acute respiratory failure Status: Acute Current Visit: Yes Qualifiers: Respiratory failure complication: hypoxia Qualified Code(s): J96.01 - Acute respiratory failure with hypoxia (3) Smoker Status: Chronic Current Visit: Yes Hospitalist: Subjective Interval history: Patient seen and examined. No acute events overnight. Case discussed with nursing staff. Labs reviewed. Patient extubated without complications this morning. ENT and pulmonary notes reviewed. Patient with severe COPD. Hospital day #9 status post 2 episodes of mechanical ventilation. Continue to monitor in ICU Exam - Constitutional Vitals: Period Temp Pulse Resp BP Sys/Hart Pulse Ox Last 24 Hr 96.7 F-97.3 F 60-83 10-27 88-109/63-82 96-100 Exam: Constitutional System: No distress. No tremulousness. Alert, awake and oriented Head: Normocephalic, atraumatic. Ears, Nose and Throat System: No pain or tenderness. No epistaxis or discharge Eyes System: Pupils equal, round, and reactive. Extraocular muscles intact. Neck: Supple, without adenopathy, No jugular venous distention. Respiratory System: Chest rales bilaterally to auscultation. Cardiovascular System: Heart with regular rate and rhythm. No murmur. GI System: Abdomen soft, nontender. Normo active bowel sounds present. Musculoskeletal System: limbs with no pedal edema. Full distal pulses. Neurological System: No discernable sensory deficit. No aphasia Psychiatric System: Conversation is rational Results - Labs CBC & BMP: 03/20/17 07:28 03/20/17 07:28 Lab Results: I have reviewed the past 24 hour labs
[2017-03-22] MEDS: FOLIC ACID 1 MG TABLET PO SCH (20:31)
[2017-03-23] MEDS: ALBUTEROL/IPRATROPIUM 3 ML NEB RESP TX SCH ×4 (01:25→18:35)
[2017-03-23 03:08] LABS: ABG Base Excess 9.2 MMOL/L (-2.5-2.5); ABG HCO3 32.9 MMOL/L (20-26); ABG Oxygen Saturation 96.7 % (95-100); ABG PCO2 46.9 MM HG (35-48); ABG PH 7.475 (7.35-7.45); ABG PO2 91.9 MM HG (80-95); ABG TCO2 28.4 MMOL/L (23-27); Allen Test Positive
[2017-03-23 04:14] LABS: Basophils # 0.1 10*3/uL (0.0-0.2); Basophils % 0.3 % (0.0-0.8); Hematocrit 45.7 VOL% (42.0-52.0); Hemoglobin 16.4 GM/DL (14.0-18.0); Immature Granulocytes % 2.7 %; Lymphocytes # 0.7 10*3/uL (1.4-4.0); Lymphocytes % 2.3 % (21.2-54.2); Mean Corpuscular HGB Conc 35.9 GM/DL (32-36); Mean Corpuscular Hemoglobin 35 PG (27-34); Mean Corpuscular Volume 96.8 FL (87-102); Mean Platelet Volume 10.6 FL (9.6-12.0); Monocytes % 3.2 % (1.7-12.7); Neutrophils # 27.3 10*3/uL (1.4-7.4); Neutrophils % 91.5 % (38.7-73.9); Platelet Count 230 T/CUMM (130-400); Red Blood Count 4.72 MC/CUMM (3.8-5.5); Red Cell Distribution Width 12.9 % (9.3-17.3); White Blood Count 29.8 T/CUMM (4-12)
[2017-03-23 04:42] LABS: Calcium 9.6 MG/DL (8.5-10.1); Magnesium 2.4 MG/DL (1.8-2.4); Osmolality,Calculated 277.1 MOS/KG (273-304); Potassium 3.6 MMOL/L (3.5-5.1)
[2017-03-23 05:22] LABS: Band Neutrophils 1 % (0-10); Giant Platelets Few; Hypochromasia 1+; Lymphocytes 3 % (20-55); Platelet Estimate Adequate; Segmented Neutrophils 93 % (50-85); Total Cells Counted 100
[2017-03-23] MEDS: methylPREDNISolone SOD SUC 40 MG/1 ML VIAL IV SCH ×3 (06:16→23:18)
--- NOTE | 2017-03-23 08:47 | Pulmonology Progress Note ---
Pulmonary - PN: Subj Interval history: Patient is a 56-year-old white man who is a heavy smoker and has COPD. He developed respiratory distress and had to be put on the ventilator. He was ventilated for a few days and his lungs are much better. He has been off the ventilator a couple days and is doing better. Last week he was doing reasonably well and was comfortable. He still has some hoarseness but was coughing okay. Apparently this weekend he got worse and started having more respiratory distress. He was reintubated and ventilated for a few days. Yesterday he was extubated again and is breathing comfortably. He is still very hoarse. He is not wheezing now and seems to be comfortable. Exam (Progress Note) - Constitutional Vitals: Period Temp Pulse Resp BP Sys/Hart Pulse Ox Last 24 Hr 97 F-98.1 F 62-92 10-29 94-129/64-92 92-100 Exam: General appearance: normal weight, no acute distress (Patient is alert and talking but is still hoarse although he is not in any distress. ) - Head Head exam: Present: normal inspection, normocephalic - Eye Eye exam: Present: EOMI. Absent: scleral icterus Pupils: Present: PETE - ENT ENT exam: Present: He is still very hoarse with no stridor. - Neck Neck exam: Absent: lymphadenopathy, thyromegaly - Respiratory Respiratory exam: Present: He has fairly good breath sounds bilaterally and has good air movement with no increased wheezing. - Cardiovascular Cardiovascular exam: Present: regular rate and rhythm. Absent: gallop, systolic murmur - GI/Abdominal GI/Abdominal exam: Present: normal bowel sounds, soft. Absent: distended, tenderness - Extremities Exam Extremities exam: Absent: calf tenderness, edema, he has no signs of phlebitis. - Neurological Exam Neurological exam: Present: He is alert and comfortable at present and moving his extremities. - Psychiatric Psychiatric exam: Absent: anxious - Skin Skin exam: Present: warm, dry Results - Labs CBC & BMP: 03/23/17 03:22 03/23/17 03:22 Assessment and Plan (1) Smoker Status: Chronic Assessment and plan: We will place a nicotine patch and he certainly needs to quit smoking. Current Visit: Yes (2) Acute exacerbation of chronic obstructive airways disease Status: Acute Assessment and plan: The patient comes in with an exacerbation of his COPD . He was intubated for a few days and then came off the ventilator okay. This weekend he apparently had worsening stridor and had to be reintubated. He was extubated yesterday and is doing okay. He is not having any stridor or distress now. Current Visit: Yes (3) Acute respiratory failure Status: Acute Assessment and plan: The patient had to be ventilated for a few days and was doing okay last week. He was very hoarse but was talking and comfortable. He apparently was in more distress yesterday and had to be intubated. He was extubated yesterday and is doing fairly well with his breathing. Current Visit: Yes Qualifiers: Respiratory failure complication: hypoxia Qualified Code(s): J96.01 - Acute respiratory failure with hypoxia
[2017-03-23] MEDS: MULTIVITAMIN (OCUVITE) TABLET PO SCH ×2 (08:53→20:52)
[2017-03-23] MEDS: LEVOFLOXACIN 750 MG TABLET PO SCH (08:53)
[2017-03-23] MEDS: THIAMINE 100 MG TABLET PO SCH (08:53)
[2017-03-23] MEDS: NICOTINE 21 MG/24 HR PATCH TRANSDERM SCH (08:54)
[2017-03-23] MEDS: FUROSEMIDE 20 MG/2 ML VIAL IV SCH ×3 (08:55→15:09)
[2017-03-23] MEDS: ENOXAPARIN 40 MG/0.4 ML SYRINGE SUBCUT SCH (08:55)
[2017-03-23] MEDS: DESITIN 4OZ/NYSTATIN 15 GRAM MIXTURE PASTE TOP SCH ×2 (09:07→20:53)
--- NOTE | 2017-03-23 09:33 | Hospitalist Progress Note ---
Assessment and Plan (1) Acute exacerbation of chronic obstructive airways disease Status: Acute Assessment and plan: Continue antibiotics, bronchodilators, corticosteroids. Pulmonary following. Status post extubation yesterday Current Visit: Yes (2) Acute respiratory failure Status: Resolved Current Visit: Yes Qualifiers: Respiratory failure complication: hypoxia Qualified Code(s): J96.01 - Acute respiratory failure with hypoxia (3) Smoker Status: Chronic Current Visit: Yes Hospitalist: Subjective Interval history: Patient seen and examined. No acute events overnight. Case discussed with nursing staff. Labs reviewed. Status post extubation yesterday and doing well. No distress. Okay to move to the floor. Exam - Constitutional Vitals: Period Temp Pulse Resp BP Sys/Hart Pulse Ox Last 24 Hr 97 F-98.1 F 62-92 12-29 100-129/64-92 92-100 Exam: Constitutional System: No distress. No tremulousness. Alert, awake and oriented. Has hoarseness of voice Head: Normocephalic, atraumatic. Ears, Nose and Throat System: No pain or tenderness. No epistaxis or discharge Eyes System: Pupils equal, round, and reactive. Extraocular muscles intact. Neck: Supple, without adenopathy, No jugular venous distention. Respiratory System: Chest clear bilaterally to auscultation. Cardiovascular System: Heart with regular rate and rhythm. No murmur. GI System: Abdomen soft, nontender. Normo active bowel sounds present. Musculoskeletal System: limbs with no pedal edema. Full distal pulses. Neurological System: No discernable sensory deficit. No aphasia Psychiatric System: Conversation is rational Results - Labs CBC & BMP: 03/23/17 03:22 03/23/17 03:22 Lab Results: I have reviewed the past 24 hour labs - Diagnostic Findings Procedure: Chest x-ray: image reviewed by me, report reviewed by me
[2017-03-23] MEDS: FOLIC ACID 1 MG TABLET PO SCH (20:52)
[2017-03-24] MEDS: ALBUTEROL/IPRATROPIUM 3 ML NEB RESP TX SCH ×4 (01:29→18:35)
[2017-03-24 03:24] LABS: ABG Base Excess 10.3 MMOL/L (-2.5-2.5); ABG HCO3 34.1 MMOL/L (20-26); ABG Oxygen Saturation 97.3 % (95-100); ABG PCO2 40.7 MM HG (35-48); ABG PH 7.531 (7.35-7.45); ABG PO2 92.5 MM HG (80-95); Allen Test Positive
[2017-03-24] MEDS: methylPREDNISolone SOD SUC 40 MG/1 ML VIAL IV SCH ×3 (06:09→23:18)
[2017-03-24 07:08] LABS: Basophils # 0.1 10*3/uL (0.0-0.2); Basophils % 0.3 % (0.0-0.8); Hematocrit 44.8 VOL% (42.0-52.0); Hemoglobin 16.2 GM/DL (14.0-18.0); Immature Granulocytes % 2.7 %; Immature Granulocytes Absolute 0.74 #; Lymphocytes % 3.5 % (21.2-54.2); Mean Corpuscular HGB Conc 36.2 GM/DL (32-36); Mean Corpuscular Hemoglobin 35 PG (27-34); Mean Corpuscular Volume 95.3 FL (87-102); Mean Platelet Volume 10.9 FL (9.6-12.0); Monocytes # 1.1 10*3/uL (0.11-0.8); Neutrophils # 24.4 10*3/uL (1.4-7.4); Neutrophils % 89.5 % (38.7-73.9); Platelet Count 221 T/CUMM (130-400); Red Cell Distribution Width 12.7 % (9.3-17.3); White Blood Count 27.2 T/CUMM (4-12)
[2017-03-24 07:44] LABS: Calcium 9.4 MG/DL (8.5-10.1); Magnesium 2.4 MG/DL (1.8-2.4); Osmolality,Calculated 268.4 MOS/KG (273-304); Potassium 3.4 MMOL/L (3.5-5.1)
[2017-03-24] MEDS: LEVOFLOXACIN 750 MG TABLET PO SCH (08:18)
[2017-03-24] MEDS: FUROSEMIDE 20 MG/2 ML VIAL IV SCH ×2 (08:18→15:22)
[2017-03-24] MEDS: MULTIVITAMIN (OCUVITE) TABLET PO SCH ×2 (08:18→20:40)
[2017-03-24] MEDS: THIAMINE 100 MG TABLET PO SCH (08:19)
[2017-03-24] MEDS: ENOXAPARIN 40 MG/0.4 ML SYRINGE SUBCUT SCH (08:19)
[2017-03-24] MEDS: NICOTINE 21 MG/24 HR PATCH TRANSDERM SCH (08:19)
[2017-03-24] MEDS: DESITIN 4OZ/NYSTATIN 15 GRAM MIXTURE PASTE TOP SCH ×2 (08:22→20:45)
[2017-03-24 08:30] LABS: Band Neutrophils 5 % (0-10); Hypochromasia 1+; Lymphocytes 3 % (20-55); Platelet Estimate Normal; Segmented Neutrophils 89 % (50-85); Total Cells Counted 100
--- NOTE | 2017-03-24 09:37 | Pulmonology Progress Note ---
Pulmonary - PN: Subj Interval history: Patient is a 56-year-old white man who is a heavy smoker and has COPD. He developed respiratory distress and had to be put on the ventilator. He was ventilated for a few days and his lungs are much better. He has been off the ventilator a couple days and is doing better. Last week he was doing reasonably well and was comfortable. He still has some hoarseness but was coughing okay. Apparently this weekend he got worse and started having more respiratory distress. He was reintubated and ventilated for a few days. He is doing well off the ventilator now. He is still hoarse but has no stridor. He says he is swallowing okay and not choking up. He feels like his breathing is doing a little better. Exam (Progress Note) - Constitutional Vitals: Period Temp Pulse Resp BP Sys/Hart Pulse Ox Last 24 Hr 96.2 F-98.7 F 65-108 16-22 118-131/78-94 93-119 Exam: General appearance: normal weight, no acute distress (Patient is alert and talking but is still hoarse although he is not in any distress. He looks like he is breathing comfortably.) - Head Head exam: Present: normal inspection, normocephalic - Eye Eye exam: Present: EOMI. Absent: scleral icterus Pupils: Present: PETE - ENT ENT exam: Present: He is still very hoarse with no stridor. - Neck Neck exam: Absent: lymphadenopathy, thyromegaly - Respiratory Respiratory exam: Present: He has fairly good breath sounds bilaterally and has good air movement with no increased wheezing. He is moving air okay today. - Cardiovascular Cardiovascular exam: Present: regular rate and rhythm. Absent: gallop, systolic murmur - GI/Abdominal GI/Abdominal exam: Present: normal bowel sounds, soft. Absent: distended, tenderness - Extremities Exam Extremities exam: Absent: calf tenderness, edema, he has no signs of phlebitis. - Neurological Exam Neurological exam: Present: He is alert and comfortable at present and moving his extremities. - Psychiatric Psychiatric exam: Absent: anxious - Skin Skin exam: Present: warm, dry Results - Labs CBC & BMP: 03/24/17 06:00 03/24/17 06:00 Assessment and Plan (1) Smoker Status: Chronic Assessment and plan: We will place a nicotine patch and he certainly needs to quit smoking. Current Visit: Yes (2) Acute exacerbation of chronic obstructive airways disease Status: Acute Assessment and plan: The patient comes in with an exacerbation of his COPD . He was intubated for a few days and then came off the ventilator okay. This weekend he apparently had worsening stridor and had to be reintubated. He was extubated and is breathing comfortably and is not having any distress. He still will need to look at his upper airway at some point in the future. Current Visit: Yes (3) Acute respiratory failure Status: Resolved Assessment and plan: The patient had to be ventilated for a few days and was doing okay last week. He was very hoarse but was talking and comfortable. He apparently had to be intubated because of stridor but is doing well now. He is still hoarse but not having any stridor now. He looks comfortable and is not short of breath. He will continue present therapy. Current Visit: Yes Qualifiers: Respiratory failure complication: hypoxia Qualified Code(s): J96.01 - Acute respiratory failure with hypoxia
--- NOTE | 2017-03-24 16:55 | Hospitalist Progress Note ---
Assessment and Plan (1) Acute exacerbation of chronic obstructive airways disease Status: Acute Assessment and plan: Continue levaquin Solumedrol Pulmonary assisting Current Visit: Yes (2) Acute respiratory failure Status: Resolved Current Visit: Yes Qualifiers: Respiratory failure complication: hypoxia Qualified Code(s): J96.01 - Acute respiratory failure with hypoxia (3) Smoker Status: Chronic Current Visit: Yes Hospitalist: Subjective Interval history: No acute events overnight. He says that his breathing is slightly better. He is quite hoarse Exam - Constitutional Vitals: Period Temp Pulse Resp BP Sys/Hart Pulse Ox Last 24 Hr 96.3 F-98.7 F 65-108 16-22 114-131/78-93 93-119 General appearance: normal weight - Head Head exam: Present: normocephalic, atraumatic - Eye Eye exam: Present: EOMI Pupils: Present: PETE - ENT ENT exam: Present: normal exam - Neck Neck exam: Present: normal inspection - Respiratory Respiratory exam: Present: decreased breath sounds, other (coarse) - Cardiovascular Cardiovascular exam: Present: regular rate and rhythm - GI/Abdominal GI/Abdominal exam: Present: normal bowel sounds, soft. Absent: tenderness, rebound - Extremities Exam Extremities exam: Present: normal inspection - Back Exam Back exam: Present: normal inspection - Neurological Exam Neurological exam: Present: alert, oriented X3 - Psychiatric Psychiatric exam: Present: normal affect, normal mood - Skin Skin exam: Present: warm, intact Results - Labs CBC & BMP: 03/24/17 06:00 03/24/17 06:00
[2017-03-24] MEDS: FOLIC ACID 1 MG TABLET PO SCH (20:40)
[2017-03-24] MEDS: traZODone 50 MG TABLET PO PRN (20:40)
[2017-03-25] MEDS: ALBUTEROL/IPRATROPIUM 3 ML NEB RESP TX SCH ×5 (00:10→23:59)
[2017-03-25 06:04] LABS: Basophils % 0.1 % (0.0-0.8); Hematocrit 45.2 VOL% (42.0-52.0); Hemoglobin 16.4 GM/DL (14.0-18.0); Immature Granulocytes % 3.4 %; Immature Granulocytes Absolute 1.49 #; Lymphocytes # 0.8 10*3/uL (1.4-4.0); Lymphocytes % 1.8 % (21.2-54.2); Mean Corpuscular HGB Conc 36.3 GM/DL (32-36); Mean Corpuscular Hemoglobin 35 PG (27-34); Mean Platelet Volume 10.7 FL (9.6-12.0); Monocytes # 1.1 10*3/uL (0.11-0.8); Monocytes % 2.4 % (1.7-12.7); Neutrophils # 40.6 10*3/uL (1.4-7.4); Neutrophils % 92.3 % (38.7-73.9); Platelet Count 200 T/CUMM (130-400); Red Blood Count 4.71 MC/CUMM (3.8-5.5); Red Cell Distribution Width 12.9 % (9.3-17.3)
[2017-03-25 06:23] LABS: Magnesium 2.3 MG/DL (1.8-2.4); Osmolality,Calculated 268.5 MOS/KG (273-304); Potassium 3.4 MMOL/L (3.5-5.1)
[2017-03-25] MEDS: methylPREDNISolone SOD SUC 40 MG/1 ML VIAL IV SCH ×3 (06:38→22:03)
[2017-03-25 06:55] LABS: Band Neutrophils 2 % (0-10); Hypochromasia 2+; Lymphocytes 1 % (20-55); Microcytosis Slight; Platelet Estimate Adequate; Segmented Neutrophils 93 % (50-85); Target Cells Slight; Total Cells Counted 100
[2017-03-25 07:56] LABS: Basophils # 0.1 10*3/uL (0.0-0.2); Basophils % 0.3 % (0.0-0.8); Hematocrit 44.6 VOL% (42.0-52.0); Hemoglobin 16.4 GM/DL (14.0-18.0); Immature Granulocytes % 2.9 %; Lymphocytes # 0.9 10*3/uL (1.4-4.0); Mean Corpuscular HGB Conc 36.8 GM/DL (32-36); Mean Corpuscular Hemoglobin 35 PG (27-34); Mean Corpuscular Volume 94.7 FL (87-102); Mean Platelet Volume 10.1 FL (9.6-12.0); Monocytes % 2.2 % (1.7-12.7); Neutrophils # 40.8 10*3/uL (1.4-7.4); Neutrophils % 92.6 % (38.7-73.9); Platelet Count 190 T/CUMM (130-400); Red Blood Count 4.71 MC/CUMM (3.8-5.5); Red Cell Distribution Width 12.8 % (9.3-17.3)
[2017-03-25 07:59] LABS: White Blood Count 44.1 T/CUMM (4-12)
[2017-03-25 08:23] LABS: Hypochromasia 1+; Lymphocytes 3 % (20-55); Microcytosis Slight; Platelet Estimate Normal; Segmented Neutrophils 95 % (50-85); Total Cells Counted 100
[2017-03-25] MEDS: ENOXAPARIN 40 MG/0.4 ML SYRINGE SUBCUT SCH (09:35)
[2017-03-25] MEDS: LEVOFLOXACIN 750 MG TABLET PO SCH (09:35)
[2017-03-25] MEDS: THIAMINE 100 MG TABLET PO SCH (09:35)
[2017-03-25] MEDS: MULTIVITAMIN (OCUVITE) TABLET PO SCH ×2 (09:35→21:04)
[2017-03-25] MEDS: NICOTINE 21 MG/24 HR PATCH TRANSDERM SCH (09:35)
[2017-03-25] MEDS: FUROSEMIDE 20 MG/2 ML VIAL IV SCH (09:35)
[2017-03-25] MEDS: DESITIN 4OZ/NYSTATIN 15 GRAM MIXTURE PASTE TOP SCH ×2 (09:36→21:02)
--- NOTE | 2017-03-25 10:27 | Pulmonology Progress Note ---
Pulmonary - PN: Subj Interval history: Patient is a 56-year-old white man who is a heavy smoker and has COPD. He developed respiratory distress and had to be put on the ventilator. He was ventilated for a few days and his lungs are much better. He has been off the ventilator a couple days and is doing better. Last week he was doing reasonably well and was comfortable. He still has some hoarseness but was coughing okay. Apparently this weekend he got worse and started having more respiratory distress. He was reintubated and ventilated for a few days. He is doing well off the ventilator now. He says he had a fairly good night and is moving around a little better. He still gets short of breath with activity. He is not having more cough or stridor. He is still very hoarse. Will probably plan to bronchoscope him next week. Exam (Progress Note) - Constitutional Vitals: Period Temp Pulse Resp BP Sys/Hart Pulse Ox Last 24 Hr 96.3 F-98.0 F 20-110 16-100 102-130/61-84 89-99 Exam: General appearance: normal weight, no acute distress (Patient is alert and talking but is still hoarse although he is not in any distress. He looks like he is breathing comfortably. He is sitting up and moving around a little better.) - Head Head exam: Present: normal inspection, normocephalic - Eye Eye exam: Present: EOMI. Absent: scleral icterus Pupils: Present: PETE - ENT ENT exam: Present: He is still very hoarse with no stridor. - Neck Neck exam: Absent: lymphadenopathy, thyromegaly - Respiratory Respiratory exam: Present: He has fairly good breath sounds bilaterally and has good air movement with no increased wheezing. He is moving air okay today. - Cardiovascular Cardiovascular exam: Present: regular rate and rhythm. Absent: gallop, systolic murmur - GI/Abdominal GI/Abdominal exam: Present: normal bowel sounds, soft. Absent: distended, tenderness - Extremities Exam Extremities exam: Absent: calf tenderness, edema, he has no signs of phlebitis. - Neurological Exam Neurological exam: Present: He is alert and comfortable at present and moving his extremities. - Psychiatric Psychiatric exam: Absent: anxious - Skin Skin exam: Present: warm, dry Results - Labs CBC & BMP: 03/25/17 07:46 03/25/17 04:50 Assessment and Plan (1) Smoker Status: Chronic Assessment and plan: We will place a nicotine patch and he certainly needs to quit smoking. Current Visit: Yes (2) Acute exacerbation of chronic obstructive airways disease Status: Acute Assessment and plan: The patient comes in with an exacerbation of his COPD . He was intubated for a few days and then came off the ventilator okay. This weekend he apparently had worsening stridor and had to be reintubated. He was extubated and is breathing comfortably and is not having any distress. He is feeling better overall but does have a very elevated white count. He is still hoarse also. Will probably plan a bronchoscope Tuesday. Current Visit: Yes (3) Acute respiratory failure Status: Resolved Assessment and plan: The patient had to be ventilated for a few days and was doing okay last week. He was very hoarse but was talking and comfortable. He apparently had to be intubated because of stridor but is doing well now. He is still hoarse but not having any stridor now. He looks comfortable and is not short of breath. He will continue present therapy. Current Visit: Yes Qualifiers: Respiratory failure complication: hypoxia Qualified Code(s): J96.01 - Acute respiratory failure with hypoxia
[2017-03-25] MEDS: ACETAMINOPHEN 325 MG TABLET PO PRN (17:09)
--- NOTE | 2017-03-25 17:09 | Hospitalist Progress Note ---
Assessment and Plan (1) Acute exacerbation of chronic obstructive airways disease Status: Acute Assessment and plan: Continue levaquin Solumedrol Pulmonary assisting Possible bronch Tuesday Current Visit: Yes (2) Acute respiratory failure Status: Resolved Current Visit: Yes Qualifiers: Respiratory failure complication: hypoxia Qualified Code(s): J96.01 - Acute respiratory failure with hypoxia (3) Smoker Status: Chronic Current Visit: Yes Hospitalist: Subjective Interval history: No acute events overnight. Patient ambulating some around room, reports some sob with exertion. Exam - Constitutional Vitals: Period Temp Pulse Resp BP Sys/Hart Pulse Ox Last 24 Hr 97.1 F-98.0 F 20-110 16-100 102-114/61-83 89-99 General appearance: normal weight - Head Head exam: Present: normocephalic, atraumatic - Eye Eye exam: Present: EOMI Pupils: Present: PETE - ENT ENT exam: Present: normal exam - Neck Neck exam: Present: normal inspection - Respiratory Respiratory exam: Present: clear to auscultation bilaterally - Cardiovascular Cardiovascular exam: Present: regular rate and rhythm - GI/Abdominal GI/Abdominal exam: Present: normal bowel sounds, soft. Absent: tenderness, rebound - Extremities Exam Extremities exam: Present: normal inspection - Back Exam Back exam: Present: normal inspection - Neurological Exam Neurological exam: Present: alert, oriented X3 - Psychiatric Psychiatric exam: Present: normal affect, normal mood - Skin Skin exam: Present: warm, intact Results - Labs CBC & BMP: 03/25/17 07:46 03/25/17 04:50
[2017-03-25] MEDS: FOLIC ACID 1 MG TABLET PO SCH (21:02)
[2017-03-26] MEDS: methylPREDNISolone SOD SUC 40 MG/1 ML VIAL IV SCH ×2 (06:17→15:38)
[2017-03-26] MEDS: ALBUTEROL/IPRATROPIUM 3 ML NEB RESP TX SCH ×3 (06:48→19:00)
[2017-03-26 07:09] LABS: Basophils # 0.1 10*3/uL (0.0-0.2); Basophils % 0.3 % (0.0-0.8); Hematocrit 42.6 VOL% (42.0-52.0); Hemoglobin 15.5 GM/DL (14.0-18.0); Immature Granulocytes % 2.6 %; Immature Granulocytes Absolute 0.85 #; Lymphocytes # 1.1 10*3/uL (1.4-4.0); Lymphocytes % 3.3 % (21.2-54.2); Mean Corpuscular HGB Conc 36.4 GM/DL (32-36); Mean Corpuscular Hemoglobin 35 PG (27-34); Mean Corpuscular Volume 95.1 FL (87-102); Mean Platelet Volume 10.1 FL (9.6-12.0); Monocytes % 3.1 % (1.7-12.7); Neutrophils # 29.5 10*3/uL (1.4-7.4); Neutrophils % 90.7 % (38.7-73.9); Platelet Count 187 T/CUMM (130-400); Red Blood Count 4.48 MC/CUMM (3.8-5.5); Red Cell Distribution Width 12.9 % (9.3-17.3); White Blood Count 32.6 T/CUMM (4-12)
[2017-03-26 07:37] LABS: Calcium 8.9 MG/DL (8.5-10.1); Hypochromasia 1+; Lymphocytes 2 % (20-55); Magnesium 2.3 MG/DL (1.8-2.4); Osmolality,Calculated 263.7 MOS/KG (273-304); Potassium 3.6 MMOL/L (3.5-5.1); Segmented Neutrophils 97 % (50-85); Total Cells Counted 100
[2017-03-26 07:38] LABS: Microcytosis Slight; Platelet Estimate Adequate
[2017-03-26] MEDS: THIAMINE 100 MG TABLET PO SCH (08:46)
[2017-03-26] MEDS: NICOTINE 21 MG/24 HR PATCH TRANSDERM SCH (08:46)
[2017-03-26] MEDS: FUROSEMIDE 20 MG TABLET PO SCH (08:46)
[2017-03-26] MEDS: MULTIVITAMIN (OCUVITE) TABLET PO SCH ×2 (08:46→21:41)
[2017-03-26] MEDS: ENOXAPARIN 40 MG/0.4 ML SYRINGE SUBCUT SCH (08:46)
[2017-03-26] MEDS: LEVOFLOXACIN 750 MG TABLET PO SCH (08:46)
[2017-03-26] MEDS: DESITIN 4OZ/NYSTATIN 15 GRAM MIXTURE PASTE TOP SCH ×2 (08:47→21:41)
[2017-03-26] MEDS: ACETAMINOPHEN 325 MG TABLET PO PRN (09:42)
--- NOTE | 2017-03-26 10:05 | Pulmonology Progress Note ---
Pulmonary - PN: Subj Interval history: Patient is a 56-year-old white man who is a heavy smoker and has COPD. He developed respiratory distress and had to be put on the ventilator. He was ventilated for a few days and his lungs are much better. He has been off the ventilator a couple days and is doing better. Last week he was doing reasonably well and was comfortable. He still has some hoarseness but was coughing okay. Apparently this weekend he got worse and started having more respiratory distress. He was reintubated and ventilated for a few days. He is doing well off the ventilator now. He still gets anxious at times and still has a little trouble breathing. He is still very hoarse and does not cough really well. His chest x-ray is stable. I will plan a bronchoscope Tuesday and check his airway Exam (Progress Note) - Constitutional Vitals: Period Temp Pulse Resp BP Sys/Hart Pulse Ox Last 24 Hr 97.4 F-98.6 F 71-96 16-20 107-120/69-82 96-99 Exam: General appearance: normal weight, no acute distress (Patient is alert and talking but is still hoarse. He gets anxious easily.) - Head Head exam: Present: normal inspection, normocephalic - Eye Eye exam: Present: EOMI. Absent: scleral icterus Pupils: Present: PETE - ENT ENT exam: Present: He is still very hoarse with no stridor. - Neck Neck exam: Absent: lymphadenopathy, thyromegaly - Respiratory Respiratory exam: Present: He has fairly good breath sounds bilaterally and has good air movement with no increased wheezing. He is moving air okay today. - Cardiovascular Cardiovascular exam: Present: regular rate and rhythm. Absent: gallop, systolic murmur - GI/Abdominal GI/Abdominal exam: Present: normal bowel sounds, soft. Absent: distended, tenderness - Extremities Exam Extremities exam: Absent: calf tenderness, edema, he has no signs of phlebitis. - Neurological Exam Neurological exam: Present: He is alert and comfortable at present and moving his extremities. - Psychiatric Psychiatric exam: Absent: anxious - Skin Skin exam: Present: warm, dry Results - Labs CBC & BMP: 03/26/17 06:56 03/26/17 06:56 - Diagnostic Findings Procedure: Chest x-ray: image reviewed by me, report reviewed by me (Chest x- ray shows COPD changes) Assessment and Plan (1) Smoker Status: Chronic Assessment and plan: We will place a nicotine patch and he certainly needs to quit smoking. Current Visit: Yes (2) Acute exacerbation of chronic obstructive airways disease Status: Acute Assessment and plan: The patient comes in with an exacerbation of his COPD . He was intubated for a few days and then came off the ventilator okay. This weekend he apparently had worsening stridor and had to be reintubated. He was extubated and is breathing comfortably and is not having any distress. He is feeling better overall but does have a very elevated white count. He is still hoarse also. Will probably plan a bronchoscope Tuesday. Current Visit: Yes (3) Acute respiratory failure Status: Resolved Assessment and plan: The patient had to be ventilated for a few days and was doing okay last week. He still has a lot of hoarseness and trouble breathing. Will plan a scope Tuesday. He will continue with steroids and bronchodilator therapy. Current Visit: Yes Qualifiers: Respiratory failure complication: hypoxia Qualified Code(s): J96.01 - Acute respiratory failure with hypoxia
--- NOTE | 2017-03-26 11:56 | XRay Report ---
History: COPD Date: 03/26/2017 Study: Chest x-ray AP portable Comparison exam: March 22, 2017 The cardiomediastinal silhouette and pulmonary vasculature are stable. There has been interval removal of the endotracheal and nasogastric tubes. The lungs are clear aside from some minimal strandy subsegmental atelectasis in the left lung base. There are some scattered emphysematous changes. There is no gross pleural effusion. Osseous structures are similar. Impression: Interval nasogastric tube and endotracheal tube removal. Mild subsegmental atelectasis left lung base slightly increased. Improved aeration in the right lung base. No interval worsening otherwise PROCEDURE INTERPRETED AT [facility] [place] DEPARTMENT OF RADIOLOGY Final Report Signed by: Dr. Ashlyn Austin
--- NOTE | 2017-03-26 12:43 | Hospitalist Progress Note ---
Assessment and Plan (1) Acute exacerbation of chronic obstructive airways disease Status: Acute Assessment and plan: Continue levaquin Solumedrol Pulmonary assisting Possible bronch Tuesday Current Visit: Yes (2) Acute respiratory failure Status: Resolved Current Visit: Yes Qualifiers: Respiratory failure complication: hypoxia Qualified Code(s): J96.01 - Acute respiratory failure with hypoxia (3) Smoker Status: Chronic Current Visit: Yes (4) Anxiety Status: Acute Assessment and plan: Klonopin prn Current Visit: Yes Hospitalist: Subjective Interval history: No acute events overnight. Patient reports that he had a panic attack earlier this morning. He also reports sob with even mild exertion. Exam - Constitutional Vitals: Period Temp Pulse Resp BP Sys/Hart Pulse Ox Last 24 Hr 97.4 F-98.6 F 71-96 16-20 107-120/69-79 96-99 General appearance: normal weight - Head Head exam: Present: normocephalic, atraumatic - Eye Eye exam: Present: EOMI Pupils: Present: PETE - ENT ENT exam: Present: normal exam - Neck Neck exam: Present: normal inspection - Respiratory Respiratory exam: Present: clear to auscultation bilaterally. Absent: rhonchi, wheezes - Cardiovascular Cardiovascular exam: Present: regular rate and rhythm - GI/Abdominal GI/Abdominal exam: Present: normal bowel sounds, soft. Absent: tenderness, rebound - Extremities Exam Extremities exam: Present: normal inspection - Back Exam Back exam: Present: normal inspection - Neurological Exam Neurological exam: Present: alert, oriented X3 - Psychiatric Psychiatric exam: Present: normal affect, normal mood - Skin Skin exam: Present: warm, intact Results - Labs CBC & BMP: 03/26/17 06:56 03/26/17 06:56
[2017-03-26] MEDS: clonazePAM 0.5 MG TABLET PO PRN ×2 (13:15→19:59)
[2017-03-26] MEDS: RACEPINEPHRINE 0.5 ML NEB RESP TX PRN (19:16)
[2017-03-26 19:32] LABS: ABG Base Excess 10.3 MMOL/L (-2.5-2.5); ABG HCO3 34.1 MMOL/L (20-26); ABG Oxygen Saturation 99.1 % (95-100); ABG PCO2 50.9 MM HG (35-48); ABG PH 7.464 (7.35-7.45); ABG TCO2 29.9 MMOL/L (23-27); Allen Test Positive
--- NOTE | 2017-03-26 19:39 | Event Note ---
Called by staff noted that patient bleeding of he cannot breathe. He was already started on nebulizer treatment. Patient has history of COPD and heavy smoking. He had required intubation in the past for such episode. Patient awake look into distress on auscultation his air movement is poor bilaterally with the diffuse rhonchi. ABG was ordered and reviewed chest x-ray also was done. Patient is transferred to the ICU for close monitoring. He is already followed by pulmonary. I have increased dose of Solu-Medrol to 60 mg IV every 8. We will also order chest physiotherapy and continue bronchodilator therapy treatment.
--- NOTE | 2017-03-26 19:46 | XRay Report ---
History: Stridor Date: 03/26/2017 at 7:09 PM Study: Chest x-ray AP portable Comparison exam: 03/26/2017 at 6:22 AM The cardiac silhouette is not enlarged. The mediastinal contour is unchanged. The pulmonary vasculature is not engorged. The lungs are generally clear. There is no elba pneumonia. There is no gross pleural effusion. Osseous structures are unchanged. Impression: No acute process. Improved aeration in the lung bases compared to the previous study PROCEDURE INTERPRETED AT [facility] DEPARTMENT OF RADIOLOGY Final Report Signed by: Dr. Ashlyn Austin
--- NOTE | 2017-03-26 19:55 | Consultation ---
Assessment and Plan (1) Acute respiratory failure Status: Resolved Assessment and plan: His stridor is most likely exacerbation of his COPD. If he deteriorates, he should be reintubated and Dr. Monterroso notified to reevaluate the patient for tracheotomy. Current Visit: Yes Qualifiers: Respiratory failure complication: hypoxia Qualified Code(s): J96.01 - Acute respiratory failure with hypoxia History of Present Illness - Data of Consult Consult date: 03/26/17 - Consult Narrative Reason for consult: stridor History of present illness: Mr. San is a 57 year old male with COPD, respiratory failure, intubation/ extubation. Now short of breath again, with "stridor". Seen in ICU on awake CPAP, no stridor, saturating at 97%. CC: Segun Mcintyre MD - Home Medications and Allergies Home Medications: Home Medications Medication Instructions Recorded Confirmed Type No Known Home Medications [No 03/13/17 03/13/17 History Known Home Medications] Allergies/Adverse Reactions: Allergies Allergy/AdvReac Type Severity Reaction Status Date / Time No Known Allergies Allergy Verified 12/18/15 23:34 Medical,Surgical,& Family Hx - Medical History HEENT: History of: Ear Problem (ear infection) Respiratory: History of: COPD Gastrointestinal: History of: GERD, Liver Problems (enlarged liver), Pancreatitis, GI Problems (hiatal hernia) Musculoskeletal: History of: Back/Neck Problems - Surgical History Abdominal Surgeries: Surgical HX of: Cholecystectomy - Family History Family History: Reports;: Family Cancer (grandfather-lung,dad-brain/lung, grandmother-breast, aunt-"female"), Family Diabetes (grandmothers), Family Hypertension (mother), Family Stroke (mother ahd multiple cvas) Denies;: Family Anesthesia Reaction, Family Heart Disease, Family Psychiatric Problems - Social History Smoking Status: Current every day smoker Frequency of Alcohol Use: None Type of Drug Use: None Exam - Constitutional Vitals: Period Temp Pulse Resp BP Sys/Hart Pulse Ox Last 24 Hr 97.4 F-98.6 F 71-107 16-22 104-135/69-93 96-99 General appearance: normal weight - Head Head exam: Present: normal inspection - Respiratory Respiratory exam: Absent: stridor Results - Labs CBC & BMP: 03/26/17 06:56 03/26/17 06:56
[2017-03-26 19:57] LABS: Calcium 9.9 MG/DL (8.5-10.1); Osmolality,Calculated 264.7 MOS/KG (273-304); Potassium 3.6 MMOL/L (3.5-5.1)
[2017-03-26] MEDS: traZODone 50 MG TABLET PO PRN (19:58)
[2017-03-26] MEDS ORDERED: methylPREDNISolone SOD SUC 40 MG/1 ML VIAL IV SCH (20:00)
[2017-03-26] MEDS ORDERED: LISINOPRIL 20 MG TABLET PO ONE (20:49)
[2017-03-26] MEDS: FOLIC ACID 1 MG TABLET PO SCH (21:41)
[2017-03-26] MEDS ORDERED: clonazePAM 0.5 MG TABLET PO ONE (23:37)
[2017-03-27] MEDS: ALBUTEROL/IPRATROPIUM 3 ML NEB RESP TX SCH ×4 (01:24→19:44)
[2017-03-27] MEDS ORDERED: LORazepam 2 MG/1 ML VIAL IV ONE (02:09)
[2017-03-27] MEDS: MORPHINE 2 MG/1 ML SYRINGE IV PRN ×2 (03:01→06:27)
[2017-03-27] MEDS: RACEPINEPHRINE 0.5 ML NEB RESP TX PRN (03:03)
[2017-03-27] MEDS: ZIPRASIDONE 20 MG/1 ML VIAL IM PRN ×2 (03:58→19:21)
[2017-03-27] MEDS: methylPREDNISolone SOD SUC 40 MG/1 ML VIAL IV SCH ×3 (04:09→16:02)
[2017-03-27 05:36] LABS: Basophils # 0.1 10*3/uL (0.0-0.2); Basophils % 0.3 % (0.0-0.8); Hematocrit 44.1 VOL% (42.0-52.0); Hemoglobin 15.8 GM/DL (14.0-18.0); Immature Granulocytes % 2.2 %; Immature Granulocytes Absolute 0.83 #; Lymphocytes # 0.4 10*3/uL (1.4-4.0); Mean Corpuscular HGB Conc 35.8 GM/DL (32-36); Mean Corpuscular Hemoglobin 35 PG (27-34); Mean Corpuscular Volume 96.7 FL (87-102); Mean Platelet Volume 10.7 FL (9.6-12.0); Monocytes # 0.8 10*3/uL (0.11-0.8); Monocytes % 2.1 % (1.7-12.7); Neutrophils # 36.4 10*3/uL (1.4-7.4); Neutrophils % 94.4 % (38.7-73.9); Platelet Count 170 T/CUMM (130-400); Red Blood Count 4.56 MC/CUMM (3.8-5.5); White Blood Count 38.5 T/CUMM (4-12)
[2017-03-27 06:03] LABS: Band Neutrophils 2 % (0-10); Lymphocytes 1 % (20-55); Platelet Estimate Adequate; Segmented Neutrophils 95 % (50-85); Total Cells Counted 100
[2017-03-27 06:06] LABS: Calcium 9.3 MG/DL (8.5-10.1); Magnesium 2.2 MG/DL (1.8-2.4); Osmolality,Calculated 269.4 MOS/KG (273-304); Potassium 3.3 MMOL/L (3.5-5.1)
[2017-03-27] MEDS ORDERED: MIDAZOLAM 10 MG/2 ML VIAL ONE (06:39)
[2017-03-27] MEDS ORDERED: PROPOFOL 1,000 MG/100 ML BOTTLE IV ONE (06:50)
--- NOTE | 2017-03-27 06:51 | Pulmonology Progress Note ---
Pulmonary - PN: Subj Interval history: Patient is a 56-year-old white man who is a heavy smoker and has COPD. He developed respiratory distress and had to be put on the ventilator. He was ventilated for a few days and his lungs are much better. He has been off the ventilator a couple days and is doing better. Last week he was doing reasonably well and was comfortable. He still has some hoarseness but was coughing okay. Apparently this weekend he got worse and started having more respiratory distress. He was reintubated and ventilated for a few days. He has been off the ventilator a few days and is getting worse again. Yesterday he was very agitated and has been hard to keep comfortable. His ABGs were okay but is very much short of breath. It is very hard to hear air moving. I do not hear any definite stridor now. He continues to get very agitated and will probably need to be intubated and have a tracheostomy tube placed. Will plan a bronchoscope and look at his airways. Exam (Progress Note) - Constitutional Vitals: Period Temp Pulse Resp BP Sys/Hart Pulse Ox Last 24 Hr 97.4 F-99.1 F 73-132 14-29 104-152/70-110 96-100 Exam: General appearance: normal weight, no acute distress (Patient is very restless and agitated and cannot really communicate very well.) - Head Head exam: Present: normal inspection, normocephalic - Eye Eye exam: Present: EOMI. Absent: scleral icterus Pupils: Present: PETE - ENT ENT exam: Present: He is still very hoarse with no stridor. - Neck Neck exam: Absent: lymphadenopathy, thyromegaly - Respiratory Respiratory exam: Present: He has distant breath sounds adequate very quiet. It is hard to hear air moving very well. - Cardiovascular Cardiovascular exam: Present: regular rate and rhythm. Absent: gallop, systolic murmur - GI/Abdominal GI/Abdominal exam: Present: normal bowel sounds, soft. Absent: distended, tenderness - Extremities Exam Extremities exam: Absent: calf tenderness, edema, he has no signs of phlebitis. - Neurological Exam Neurological exam: Present: He is extremely anxious now and cannot really communicate. - Psychiatric Psychiatric exam: patient is very anxious right now. He has been given a lot of sedatives. - Skin Skin exam: Present: warm, dry Results - Labs CBC & BMP: 03/27/17 05:09 03/27/17 05:09 Labs: PO2 is 236 with a PCO2 of 50 and a pH of 7.46. Assessment and Plan (1) Smoker Status: Chronic Assessment and plan: We will place a nicotine patch and he certainly needs to quit smoking. Current Visit: Yes (2) Acute exacerbation of chronic obstructive airways disease Status: Acute Assessment and plan: The patient comes in with an exacerbation of his COPD . He has gotten better at times and other times he gets worse again. He gets extremely anxious and has marked distress. It is hard to tell if he is having any upper airway obstruction or not. Now he is more short of breath and will need to be reintubated. He will need a tracheostomy tube placed in the near future. Current Visit: Yes (3) Acute respiratory failure Status: Resolved Assessment and plan: The patient had to be ventilated for a few days and was doing okay last week. He still has a lot of hoarseness and trouble breathing. Will plan a bronchoscope and check his upper airway and then place him back on the ventilator. Current Visit: Yes Qualifiers: Respiratory failure complication: hypoxia Qualified Code(s): J96.01 - Acute respiratory failure with hypoxia
[2017-03-27 06:54] LABS: Apearance,Urine CLEAR (Clear); Bacteria,Urine Occasional /HPF (Few); Bilirubin,Urine Negative (Negative); Blood, Urine Negative (Negative); Glucose,Urine (UA) Negative (Negative); Hyaline Casts,Urine 1 /LPF (0-3); Ketones,Urine Negative (Negative); Mucus,Urine Occasional /LPF (Occasional); Nitrite,Urine Negative (Negative); Protein,Urine 30 MG/DL; RBC,Urine 9 /HPF (0-4); Squamous Epithelial Cell,Urine Occasional /HPF (0-10); Urine Color Yellow (Yellow); Urine Specific Gravity 1.017 (1.001-1.035); Urine Urobilinogen < 2.0 EU/DL (0.2-1.0); WBC,Urine 1 /HPF (0-6)
[2017-03-27] MEDS ORDERED: MIDAZOLAM 2 MG/2 ML VIAL IV ONE (07:15)
[2017-03-27] MEDS: PROPOFOL 1,000 MG/100 ML BOTTLE IV SCH ×3 (07:22→21:18)
--- NOTE | 2017-03-27 07:23 | Operative Note ---
Date of procedure: 03/27/17 Pre-op diagnosis: Acute respiratory failure Post-op diagnosis: same Procedure: Patient is a 57-year-old with COPD and has had a difficult time with his breathing. Yesterday evening he became more short of breath and there was a question of stridor. He has been very agitated and restless through the night is still not able to move air very well. He will need to be reintubated and will need a tracheostomy tube. Will plan a bronchoscope to intubate him and look at his upper airway. Procedure: The patient has been given Versed 2 mg IV push and topical lidocaine. A #7.5 ET tube was positioned in his right nostril. Then with the bronchoscope, his vocal cords and an upper trachea were evaluated and then he was intubated via the bronchoscope. The ET tube passed easily into the trachea. He was then placed on the ventilator. The vocal cords look a little distorted in the upper trachea has marked mucosal changes with swelling and this is worrisome for malignancy. This will need further evaluation by ENT. The patient was sedated and placed on the ventilator in stable condition. Impression: Marked subglottic swelling with mucosal changes worrisome for malignancy. The patient does have severe COPD. Plan: We will continue ventilatory support and have ENT evaluate for trach and biopsies of the upper airway. Anesthesia: conscious sedation Surgeon / Physician: Heraclio Salgado Estimated blood loss: none Specimens: none sent Condition: critical Disposition: ICU Results - Labs CBC & BMP: 03/27/17 05:09 03/27/17 05:09 Discharge Plan - Discharge Medications No Action No Known Home Medications [No Known Home Medications] - Follow Up or Referral - Forms/Instructions
[2017-03-27 08:05] LABS: Allen Test Positive; Pt O2 Delivery Device Ventilator
[2017-03-27 08:14] LABS: ABG HCO3 34.6 MMOL/L (20-26); ABG Oxygen Saturation 99.6 % (95-100); ABG PCO2 45.4 MM HG (35-48); ABG PO2 368.4 MM HG (80-95)
[2017-03-27] MEDS ORDERED: PHENYLEPHRINE DRIP 40 MG/250 ML PREMIX IV ONE (08:20)
[2017-03-27] MEDS: PHENYLEPHRINE DRIP 40 MG/250 ML PREMIX IV SCH (08:24)
--- NOTE | 2017-03-27 08:37 | Hospitalist Progress Note ---
Assessment and Plan (1) Acute respiratory failure with hypoxia and hypercarbia Status: Acute Assessment and plan: Patient is currently intubated on CMV of 12 FiO2 100% tidal volume 700 with a PEEP of 5. ABG shows adequate oxygenation after oxygen is on the high side and he is hypoventilated. Pulmonology service on the case and managing the vent Current Visit: Yes (2) Hyponatremia Status: Acute Assessment and plan: This may be secondary to SIADH given the pulmonary issues. Try to minimize fluid intake per day as much as possible. Current Visit: Yes (3) Leukocytosis Status: Acute Assessment and plan: Is been persistently so for some time. I suspect contribution of systemic steroid use. Infection cannot be completely ruled out. We will to try to get sputum Gram stain and culture patient is currently intubated and should be easy to get it. Lower respiratory specimen even is with saline suctioning will help. Patient is currently on levofloxacin alone I believe we need to add vancomycin 1 g every 12 hours targeting 12 level of around 15 mcg/mL. Would have been better with the with linezolide, however he is on pressors. Current Visit: Yes (4) COPD with acute exacerbation Status: Acute Assessment and plan: Continue systemic steroids continue beta agonist and ipratropium bromide inhalation. She is currently nasally intubated. Current Visit: Yes Hospitalist: Subjective Interval history: She has been seen and examined and chart has been reviewed. Patient is currently intubated and sedated is incommunicado. Mr. San is a 57-year-old gentleman was on the floor that has been there for some time developed acute exacerbation of COPD with acute respiratory failure with hypoxia; needing intubation. Is currently in ICU room 115 had an ABG done around 8:00 this morning. Patient shows a pH of 7.50 PCO2 of 45 PO2 of 368 base of 34.6 saturation 99.6; settings are CMV of 12 tidal volume 700 FiO2 of 100% and PEEP of +5. Pulmonology services are on the case and managing the ventilation. Noted also has a persistent leukocytosis most recent one from this morning is white count of 38.5 32.6 yesterday and 44.1 before that. Has been on systemic steroids. 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 Exam - Constitutional Vitals: Period Temp Pulse Resp BP Sys/Hart Pulse Ox Last 24 Hr 97.6 F-99.1 F 83-132 12-29 104-152/75-110 96-100 General appearance: normal weight - Head Head exam: Present: normocephalic, atraumatic - Eye Eye exam: Present: EOMI Pupils: Present: PETE - ENT ENT exam: Present: other (Nasally intubated) - Neck Neck exam: Present: other (Noted a lump on the left side of the neck that looks like a unilateral goiter. Not fluctuant ultrasound assessment of this lesion is suggested.) - Respiratory Respiratory exam: Present: clear to auscultation bilaterally - Cardiovascular Cardiovascular exam: Present: regular rate and rhythm, other (Poor inspiratory poor) - GI/Abdominal GI/Abdominal exam: Present: normal bowel sounds - Extremities Exam Extremities exam: Present: other (Sedated) - Neurological Exam Neurological exam: Present: other (Sedated on propofol) - Skin Skin exam: Present: normal color, warm, dry Results - Labs CBC & BMP: 03/27/17 05:09 03/27/17 05:09 Lab Results: I have reviewed the past 24 hour labs (Noted hypokalemia this will be supplemented per protocol. Magnesium this morning is 2.2)
[2017-03-27] MEDS: FUROSEMIDE 20 MG TABLET PO SCH (09:18)
[2017-03-27] MEDS: ENOXAPARIN 40 MG/0.4 ML SYRINGE SUBCUT SCH (09:18)
[2017-03-27] MEDS: MULTIVITAMIN (OCUVITE) TABLET PO SCH ×2 (09:32→21:46)
[2017-03-27] MEDS: THIAMINE 100 MG TABLET PO SCH (09:33)
--- NOTE | 2017-03-27 09:38 | Hospitalist Progress Note ---
Assessment and Plan (1) Acute respiratory failure with hypoxia and hypercarbia Status: Acute Assessment and plan: Patient is currently intubated on CMV of 12 FiO2 100% tidal volume 700 with a PEEP of 5. ABG shows adequate oxygenation after oxygen is on the high side and he is hypoventilated. Pulmonology service on the case and managing the vent Current Visit: Yes (2) Hyponatremia Status: Acute Assessment and plan: This may be secondary to SIADH given the pulmonary issues. Try to minimize fluid intake per day as much as possible. Current Visit: Yes (3) Leukocytosis Status: Acute Assessment and plan: Is been persistently so for some time. I suspect contribution of systemic steroid use. Infection cannot be completely ruled out. We will to try to get sputum Gram stain and culture patient is currently intubated and should be easy to get it. Lower respiratory specimen even is with saline suctioning will help. Patient is currently on levofloxacin alone I believe we need to add vancomycin 1 g every 12 hours targeting 12 level of around 15 mcg/mL. Would have been better with the with linezolide, however he is on pressors. Current Visit: Yes (4) COPD with acute exacerbation Status: Acute Assessment and plan: Continue systemic steroids continue beta agonist and ipratropium bromide inhalation. She is currently nasally intubated. Current Visit: Yes Exam - Constitutional Vitals: Period Temp Pulse Resp BP Sys/Hart Pulse Ox Last 24 Hr 97.0 F-99.1 F 83-132 12-29 78-152/60-110 96-100 Results - Labs CBC & BMP: 03/27/17 05:09 03/27/17 05:09
[2017-03-27] MEDS: NICOTINE 21 MG/24 HR PATCH TRANSDERM SCH (09:54)
[2017-03-27] MEDS: VANCOMYCIN INJ 1,000 MG in SODIUM CHLORIDE 0.9% 250 ML IV SCH ×2 (09:54→16:02)
[2017-03-27] MEDS: CEFEPIME 1,000 MG in SODIUM CHLORIDE 0.9% 100 ML IV SCH ×2 (11:00→17:14)
--- NOTE | 2017-03-27 11:00 | Operative Note ---
Date of procedure: 03/27/17 Pre-op diagnosis: Respiratory failure Post-op diagnosis: same Procedure: The patient is on the ventilator and has poor IV access. A PICC line will be placed for IV access. Procedure: The right arm was prepped and draped with the usual maximal sterile technique. With ultrasound guidance, a right brachial vein was accessed. With a modified Seldinger technique, a 5 Palestinian double lumen power PICC was placed to 45 cm. There was good blood return and the line was sutured in place. He tolerated the procedure well without problems. Impression: 5 Palestinian double lumen power PICC placed to 45 cm. Anesthesia: conscious sedation Surgeon / Physician: Heraclio Salgado Estimated blood loss: minimal Specimens: none sent Condition: stable Disposition: ICU Results - Labs CBC & BMP: 03/27/17 05:09 03/27/17 05:09 Discharge Plan - Discharge Medications No Action No Known Home Medications [No Known Home Medications] - Follow Up or Referral - Forms/Instructions
[2017-03-27] MEDS: SODIUM CHLORIDE 0.9% 1,000 ML IV SCH ×2 (11:16→22:00)
--- NOTE | 2017-03-27 11:38 | XRay Report ---
History: Intubation. PICC line insertion Date: 03/27/2017 Study: Chest x-ray AP portable Comparison exam: 03/26/2017 The right PICC line is well-positioned with its tip overlying the atriocaval junction level. The endotracheal tube is well-positioned with its tip over the trachea at the T4 vertebral body level. The cardiomediastinal silhouette and pulmonary vasculature are unchanged. There is increasing strandy and hazy infiltrate in the right lung base which could represent pneumonia or aspiration. There is no pneumothorax. There is no increasing pleural effusion. Osseous structures are similar. Impression: Satisfactory positioning of the supporting tubes. Increasing atelectasis/infiltrate in the right lung base in the interval, consider pneumonia and aspiration PROCEDURE INTERPRETED AT [facility] ([facility] DEPARTMENT OF RADIOLOGY Final Report Signed by: Dr. Ashlyn Austin
[2017-03-27] MEDS: DESITIN 4OZ/NYSTATIN 15 GRAM MIXTURE PASTE TOP SCH ×2 (12:26→21:47)
[2017-03-27] MEDS ORDERED: LIDOCAINE 1% 20 ML VIAL IM ONE (16:45)
[2017-03-27] MEDS: FOLIC ACID 1 MG TABLET PO SCH (21:46)
[2017-03-27] MEDS ORDERED: clonazePAM 0.5 MG TABLET PO ONE (23:20)
[2017-03-28] MEDS: ALBUTEROL/IPRATROPIUM 3 ML NEB RESP TX SCH ×4 (00:02→20:18)
[2017-03-28] MEDS: methylPREDNISolone SOD SUC 40 MG/1 ML VIAL IV SCH ×4 (01:53→17:10)
[2017-03-28] MEDS: VANCOMYCIN INJ 1,000 MG in SODIUM CHLORIDE 0.9% 250 ML IV SCH ×2 (02:03→09:38)
[2017-03-28] MEDS: CEFEPIME 1,000 MG in SODIUM CHLORIDE 0.9% 100 ML IV SCH ×3 (03:26→18:30)
[2017-03-28] MEDS: PROPOFOL 1,000 MG/100 ML BOTTLE IV SCH ×5 (03:26→23:04)
[2017-03-28 03:53] LABS: ABG Base Excess 6.8 MMOL/L (-2.5-2.5); ABG HCO3 30.3 MMOL/L (20-26); ABG Oxygen Saturation 99.4 % (95-100); ABG PH 7.508 (7.35-7.45); ABG PO2 258.3 MM HG (80-95); ABG TCO2 31.5 MMOL/L (23-27); Allen Test Positive; Pt O2 Delivery Device Ventilator
[2017-03-28] MEDS: PHENYLEPHRINE DRIP 40 MG/250 ML PREMIX IV SCH ×3 (04:26→09:38)
[2017-03-28 06:07] LABS: Hematocrit 40.1 VOL% (42.0-52.0); Hemoglobin 14.3 GM/DL (14.0-18.0); Immature Granulocytes % 2.7 %; Immature Granulocytes Absolute 1.41 #; Lymphocytes # 0.4 10*3/uL (1.4-4.0); Lymphocytes % 0.8 % (21.2-54.2); Mean Corpuscular HGB Conc 35.7 GM/DL (32-36); Mean Corpuscular Hemoglobin 35 PG (27-34); Mean Corpuscular Volume 98.8 FL (87-102); Mean Platelet Volume 10.8 FL (9.6-12.0); Monocytes # 0.8 10*3/uL (0.11-0.8); Monocytes % 1.6 % (1.7-12.7); Neutrophils # 50.2 10*3/uL (1.4-7.4); Neutrophils % 94.9 % (38.7-73.9); Platelet Count 189 T/CUMM (130-400); Red Blood Count 4.06 MC/CUMM (3.8-5.5); Red Cell Distribution Width 13.3 % (9.3-17.3)
[2017-03-28 06:09] LABS: White Blood Count 52.9 T/CUMM (4-12)
[2017-03-28 06:35] LABS: Band Neutrophils 7 % (0-10); Calcium 8.2 MG/DL (8.5-10.1); Lymphocytes 1 % (20-55); Magnesium 2.3 MG/DL (1.8-2.4); Osmolality,Calculated 280.4 MOS/KG (273-304); Potassium 3.6 MMOL/L (3.5-5.1); Segmented Neutrophils 89 % (50-85); Total Cells Counted 100
[2017-03-28 06:36] LABS: Hypochromasia Slight; Platelet Estimate Adequate
[2017-03-28] MEDS ORDERED: GLYCOPYRROLATE 0.4 MG/2 ML VIAL IM ONE (07:00)
[2017-03-28] MEDS ORDERED: PROMETHAZINE 25 MG/1 ML VIAL IM ONE (07:00)
[2017-03-28] MEDS ORDERED: MEPERIDINE 50 MG/1 ML VIAL IM ONE (07:00)
[2017-03-28] MEDS ORDERED: LIDOCAINE 1% 20 ML VIAL MISC INJ ONE (07:30)
[2017-03-28] MEDS ORDERED: MIDAZOLAM 2 MG/2 ML VIAL IV ONE (07:30)
[2017-03-28] MEDS ORDERED: LIDOCAINE 4% TOP SOLN 50 ML BOTTLE RESP TX ONE (07:30)
[2017-03-28] MEDS ORDERED: LIDOCAINE 2% VISCOUS 100 ML BOTTLE SWISH/SPIT ONE (07:30)
--- NOTE | 2017-03-28 07:30 | Pulmonology Progress Note ---
Pulmonary - PN: Subj Interval history: Patient is a 56-year-old white man who is a heavy smoker and has COPD. He developed respiratory distress and had to be put on the ventilator. He was ventilated for a few days and his lungs are much better. He has been off the ventilator a couple days and is doing better. Last week he was doing reasonably well and was comfortable. He still has some hoarseness but was coughing okay. Apparently this weekend he got worse and started having more respiratory distress. He was reintubated and ventilated for a few days. He has been off the ventilator a few days and is getting worse again. He continued to have signs of upper airway obstruction. Yesterday we will be intubated him. On bronchoscopy he has markedly swollen mucosa of the upper trachea and it looks like he has a neck mass. This looks like he could have malignancy in this area. He is on the ventilator now in fairly stable. His oxygenation is excellent. He will need a tracheostomy tube. Exam (Progress Note) - Constitutional Vitals: Period Temp Pulse Resp BP Sys/Hart Pulse Ox Last 24 Hr 97.0 F-98.8 F 60-105 12-21 78-124/59-98 97-100 Exam: General appearance: normal weight, no acute distress (Patient is arousable and is comfortable on the ventilator.) - Head Head exam: Present: normal inspection, normocephalic - Eye Eye exam: Present: EOMI. Absent: scleral icterus Pupils: Present: PETE - ENT ENT exam: Present: He has an ET tube in place. - Neck Neck exam: his dia is shaved and he has a left neck mass. - Respiratory Respiratory exam: Present: He has distant breath sounds but he has adequate air movement and no wheezing. - Cardiovascular Cardiovascular exam: Present: regular rate and rhythm. Absent: gallop, systolic murmur - GI/Abdominal GI/Abdominal exam: Present: normal bowel sounds, soft. Absent: distended, tenderness - Extremities Exam Extremities exam: Absent: calf tenderness, edema, he has no signs of phlebitis. - Neurological Exam Neurological exam: Present: He does respond and is requiring sedation. - Psychiatric Psychiatric exam: patient is sedated and comfortable at present. - Skin Skin exam: Present: warm, dry Results - Labs CBC & BMP: 03/28/17 04:52 03/28/17 04:52 Labs: His PO2 is 258 with a PCO2 of 39 and a pH of 7.5 - Diagnostic Findings Procedure: Chest x-ray: image reviewed by me, report reviewed by me (Chest x- ray shows COPD changes with slight infiltrate in the right base.) Assessment and Plan (1) Smoker Status: Chronic Assessment and plan: We will place a nicotine patch and he certainly needs to quit smoking. Current Visit: Yes (2) Acute exacerbation of chronic obstructive airways disease Status: Acute Assessment and plan: The patient comes in with an exacerbation of his COPD . He had to be reintubated and he does have some abnormalities in his upper trachea. 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 He is stable on the ventilator at present. Current Visit: Yes (3) Acute respiratory failure Status: Resolved Assessment and plan: The patient had to be ventilated for a few days and was doing okay last week. He had marked distress this weekend and was reintubated. He will need a tracheostomy tube and a biopsy of his upper airway. Current Visit: Yes Qualifiers: Respiratory failure complication: hypoxia Qualified Code(s): J96.01 - Acute respiratory failure with hypoxia
--- NOTE | 2017-03-28 07:35 | XRay Report ---
Portable chest. Indication: Shortness of breath. Comparison: March 27, 2017. The heart is normal in size. An endotracheal tube and PICC line remain in satisfactory position. There are hyperexpanded lung chiu and findings consistent with COPD. Infiltrate of the right lung base is stable. Atelectasis or scarring at the left lung base is stable. Impression: No interval change. COPD. Persistent infiltrate in the right lung base. PROCEDURE INTERPRETED AT [facility] DEPARTMENT OF RADIOLOGY Final Report Signed by: Dr. Marcia Alarcon
[2017-03-28] MEDS: SODIUM CHLORIDE 0.9% 1,000 ML IV SCH ×3 (08:21→17:52)
[2017-03-28] MEDS: NICOTINE 21 MG/24 HR PATCH TRANSDERM SCH (08:36)
[2017-03-28] MEDS: MULTIVITAMIN (OCUVITE) TABLET PO SCH ×2 (09:38→20:21)
[2017-03-28] MEDS: DESITIN 4OZ/NYSTATIN 15 GRAM MIXTURE PASTE TOP SCH ×2 (09:38→18:06)
[2017-03-28] MEDS: ENOXAPARIN 40 MG/0.4 ML SYRINGE SUBCUT SCH (09:38)
[2017-03-28] MEDS: THIAMINE 100 MG TABLET PO SCH (09:39)
[2017-03-28] MEDS ORDERED: VANCOMYCIN INJ 500 MG in SODIUM CHLORIDE 0.9% 100 ML IV ONE (10:30)
--- NOTE | 2017-03-28 12:39 | Progress Note ---
Assessment and Plan - Time spent with patient Time spent with patient: Less than 30 minutes (1) Ventilator dependence Status: Acute Assessment and plan: I will tentatively put him on for a trach tomorrow in the OR. Will obtain consent and hold anticoagulants and any tube feedings. Additionally I will obtain a CT of the neck with contrast to verify any abnormal anatomy and we will possibly do an open biopsy if there is any grossly obvious abnormal anatomy. His white count is extremely high and we may request a peripheral smear I am not sure this will clarify as to why but it seems odd that his white count is so high in light of his IV antibiotic therapy and the length of time that he is been treated. Thank you very much for notifying me of this and we will put him on the schedule for tomorrow. Current Visit: Yes (2) Stridor Status: Acute Assessment and plan: Bedside laryngoscopy was suboptimal because of ET tube but I saw no gross lesions that would cause the patient stridor. I would recommend re-extubation preferably tomorrow/Tuesday as I will be in the hospital and could potentially walk over and evaluate if he was having any problem at the time. If he continues to have problem we may have to discuss alternative recommendations such as immediate placement on CPAP/BiPAP or potentially tracheostomy. I will continue to follow this patient intermittently. Thank you very much for this consultation. 03/22/2017 The patient tolerated extubation well with no evidence of stridor for the first 30 minutes after extubation feel the patient will not need any intervention or more aggressive management of the airway. I will sign off on this case but I think you for consulting me if there are any additional questions or concerns please do not hesitate to notify me. Current Visit: Yes (3) Acute exacerbation of chronic obstructive airways disease Status: Acute Current Visit: Yes (4) Acute respiratory failure Status: Resolved Current Visit: Yes Qualifiers: Respiratory failure complication: hypoxia Qualified Code(s): J96.01 - Acute respiratory failure with hypoxia (5) Smoker Status: Chronic Current Visit: Yes (6) Goiter Status: Acute Current Visit: Yes Family Medicine PN Sub Interval history: 57-year-old male originally intubated for respiratory distress has been visualized with laryngoscopy at bedside in no gross lesions or masses were seen in the suboptimal view secondary to intubation. He is been extubated and would tolerate extubation well for a period of time be transferred upstairs and then have another bout of respiratory distress where he needed intubation again. He has a long-term history of COPD which is probably complicating this along with a extensive smoking history which could secondarily also be affecting his multiple failures at extubation. ENT was asked to reevaluate and place a trach and also evaluate for possible thyroid mass with possible open biopsy of the time of tracheostomy. Exam (Progress Note) - Constitutional Vitals: Period Temp Pulse Resp BP Sys/Hart Pulse Ox Last 24 Hr 97.6 F-98.8 F 58-102 12-22 86-124/59-92 98-100 General appearance: normal weight, other (Intubated and sedated) - ENT ENT exam: Present: normal exam, normal external ear exam, normal oropharynx, other (Grossly normal exam though suboptimal secondary to endotracheal intubation and nasogastric intubation) - Neck Neck exam: Present: other (For palpation it feels the patient may have a bit of a goiter that is larger on the left than the right but this is hard to determine in light of his multiple respiratory distress episodes I recommend a CT with contrast to evaluate) - Respiratory Respiratory exam: Present: other (Sedated and intubated) - Cardiovascular Cardiovascular exam: Present: regular rate and rhythm - GI/Abdominal GI/Abdominal exam: Present: soft - Neurological Exam Neurological exam: Present: other (Unable to examine because patient is sedated on on the ventilator) - Psychiatric Psychiatric exam: Present: other (Unable to examine as the patient is a the ventilator and sedated) - Skin Skin exam: Present: normal color, warm Results - Labs CBC & BMP: 03/28/17 04:52 03/28/17 04:52 Lab Results: I have reviewed the past 24 hour labs
--- NOTE | 2017-03-28 12:41 | Hospitalist Progress Note ---
Assessment and Plan (1) Acute respiratory failure with hypoxia and hypercarbia Status: Acute Assessment and plan: Patient remains intubated. Pulmonary is on Current Visit: Yes (2) Hyponatremia Status: Acute Assessment and plan: Sodium was normalized to 140 today. Creatinine 0.4 Current Visit: Yes (3) Leukocytosis Status: Acute Assessment and plan: Noted [place] yesterday at 52,900 there is a leukemoid state. The large mass in the neck differential is infectious or malignancy. Granulomatous infection cannot be included; EEG scrofula that could explain the leukemoid reaction. I will obtain an ultrasound of this mass. Current Visit: Yes (4) COPD with acute exacerbation Status: Acute Assessment and plan: Continue current treatments. It may be on associated lower respiratory infection this gentleman does have nasal cartilage of MRSA. He is on vancomycin and cefepime Current Visit: Yes Hospitalist: Subjective Interval history: Patient has been seen interviewed and examined chart has been reviewed. Patient is in intensive care unit with respiratory failure status post intubation. He has had recurrent nasal intubation. He has a tumor on the left side of his neck. My understanding that is planned for biopsy as of yesterday discussions. It is my first time to see him. However I cannot find any preliminary workups for it. Months this would be an ultrasound. If the biopsy this and arranged fine-needle aspiration or core biopsy. I cannot find the ultrasound I will order ultrasound of the neck tissues. He remains intubated and modestly sedated. Vital signs are normal oxygenation is optimal Exam - Constitutional Vitals: Period Temp Pulse Resp BP Sys/Hart Pulse Ox Last 24 Hr 97.6 F-98.8 F 58-102 12-22 86-124/59-92 98-100 General appearance: normal weight - Head Head exam: Present: normocephalic, atraumatic - Eye Eye exam: Present: other (Anicteric sclera no conjunctival petechia) Pupils: Present: PETE - Neck Neck exam: Present: other (Noted a mass on the left side of the neck. Does not feel fluctuant. It is in this space which would be occupied by a unilateral thyroid mass. No masses felt in the Virchow's space.) Results - Labs CBC & BMP: 03/28/17 04:52 03/28/17 04:52 Lab Results: I have reviewed the past 24 hour labs (Noted profound leukocytosis with neutrophilia. Patient is not in the count is 189,000)
[2017-03-28 13:10] LABS: Hematocrit 39.1 VOL% (42.0-52.0); Hemoglobin 13.9 GM/DL (14.0-18.0); Immature Granulocytes % 3.4 %; Immature Granulocytes Absolute 1.65 #; Lymphocytes # 0.5 10*3/uL (1.4-4.0); Mean Corpuscular HGB Conc 35.5 GM/DL (32-36); Mean Corpuscular Hemoglobin 35 PG (27-34); Mean Corpuscular Volume 98.5 FL (87-102); Mean Platelet Volume 10.3 FL (9.6-12.0); Monocytes # 0.6 10*3/uL (0.11-0.8); Monocytes % 1.3 % (1.7-12.7); Neutrophils # 45.1 10*3/uL (1.4-7.4); Neutrophils % 94.3 % (38.7-73.9); Platelet Count 175 T/CUMM (130-400); Red Blood Count 3.97 MC/CUMM (3.8-5.5); Red Cell Distribution Width 13.4 % (9.3-17.3)
[2017-03-28 13:14] LABS: White Blood Count 47.9 T/CUMM (4-12)
[2017-03-28 13:36] LABS: Band Neutrophils 1 % (0-10); Segmented Neutrophils 98 % (50-85); Total Cells Counted 100
[2017-03-28 13:37] LABS: Platelet Estimate Adequate; Polychromasia Slight; Target Cells Slight
--- NOTE | 2017-03-28 15:18 | CT Report ---
Exam: CT soft tissue neck with contrast Date: 03/28/2017 Comparison: None Reason: Goiter, cervical lymphadenopathy, tobacco usage Technique: Axial images of the neck were obtained with the use of 80 cc of Omniscan 350 IV contrast. Sagittal and coronal reformatted images were also acquired. Total DLP was 164.30 mGy*cm. Findings: Endotracheal tube and right arm PICC line in satisfactory position. Arterial calcifications are noted. No acute findings in the visualized maxillary sinuses, parotid glands, submandibular glands, and nasopharynx. Degenerative changes are noted. Probable chronic scarring at the visualized lung apices with minimal asymmetric pleural thickening at the right lung apex. Fluid noted in the parapharyngeal space and around the endotracheal tube. 70 x 62 x 56 mm mass which cannot be from the left lobe of the thyroid gland. There is associated deviation of the trachea to the right. Small air-fluid level in the esophagus. Several lymph nodes in the left neck are minimally larger in size than the right chlorine cells operator nodes. Impression: 70 x 62 x 56 mm left neck mass which cannot be from the left lobe of the thyroid gland. This finding could be related to multinodular goiter but neoplastic process cannot be excluded. There is associated deviation of the trachea with somewhat poor definition of portions of the wall of the trachea and fluid noted around the endotracheal tube. Correlation with endoscopic findings may be helpful for further evaluation. Ultrasound-guided biopsy may be helpful for further evaluation. This CT exam was performed using one or more the following dose reduction techniques: Automatic exposure control, adjustment of the MA and/or KV according to patient size, or use of iterative reconstruction technique. PROCEDURE INTERPRETED AT [facility] DEPARTMENT OF RADIOLOGY Final Report Signed by: Dr. Carmita Barfield
[2017-03-28] MEDS: VANCOMYCIN INJ 1,250 MG in SODIUM CHLORIDE 0.9% 250 ML IV SCH (17:10)
[2017-03-28] MEDS: FOLIC ACID 1 MG TABLET PO SCH (20:21)
[2017-03-29] MEDS: DESITIN 4OZ/NYSTATIN 15 GRAM MIXTURE PASTE TOP SCH ×3 (01:02→21:09)
[2017-03-29] MEDS: ALBUTEROL/IPRATROPIUM 3 ML NEB RESP TX SCH ×4 (01:06→19:53)
[2017-03-29] MEDS: methylPREDNISolone SOD SUC 40 MG/1 ML VIAL IV SCH ×3 (01:35→17:00)
[2017-03-29] MEDS: CEFEPIME 1,000 MG in SODIUM CHLORIDE 0.9% 100 ML IV SCH ×3 (01:35→18:53)
[2017-03-29] MEDS: MORPHINE 2 MG/1 ML SYRINGE IV PRN ×5 (01:36→23:30)
[2017-03-29] MEDS: VANCOMYCIN INJ 1,250 MG in SODIUM CHLORIDE 0.9% 250 ML IV SCH ×3 (02:30→22:35)
[2017-03-29 03:51] LABS: ABG Base Excess 1.9 MMOL/L (-2.5-2.5); ABG HCO3 26.1 MMOL/L (20-26); ABG Oxygen Saturation 99.4 % (95-100); ABG PCO2 35.6 MM HG (35-48); ABG PH 7.461 (7.35-7.45)
[2017-03-29 05:31] LABS: Basophils # 0.1 10*3/uL (0.0-0.2); Basophils % 0.2 % (0.0-0.8); Hematocrit 36.4 VOL% (42.0-52.0); Hemoglobin 12.5 GM/DL (14.0-18.0); Immature Granulocytes % 2.2 %; Immature Granulocytes Absolute 0.77 #; Lymphocytes # 0.5 10*3/uL (1.4-4.0); Lymphocytes % 1.4 % (21.2-54.2); Mean Corpuscular HGB Conc 34.3 GM/DL (32-36); Mean Corpuscular Hemoglobin 35 PG (27-34); Mean Corpuscular Volume 101.1 FL (87-102); Mean Platelet Volume 10.4 FL (9.6-12.0); Monocytes # 0.8 10*3/uL (0.11-0.8); Monocytes % 2.1 % (1.7-12.7); Neutrophils # 33.5 10*3/uL (1.4-7.4); Neutrophils % 94.1 % (38.7-73.9); Platelet Count 167 T/CUMM (130-400); Red Cell Distribution Width 13.5 % (9.3-17.3); White Blood Count 35.6 T/CUMM (4-12)
[2017-03-29 05:52] LABS: Calcium 7.9 MG/DL (8.5-10.1); Magnesium 2.3 MG/DL (1.8-2.4); Osmolality,Calculated 288.1 MOS/KG (273-304); Potassium 3.8 MMOL/L (3.5-5.1)
[2017-03-29 05:56] LABS: Lymphocytes 1 % (20-55); Platelet Estimate Normal; Segmented Neutrophils 97 % (50-85); Total Cells Counted 100
[2017-03-29 05:57] LABS: Hypochromasia Slight
[2017-03-29] MEDS: SODIUM CHLORIDE 0.9% 1,000 ML IV SCH ×3 (06:29→13:26)
[2017-03-29] MEDS: PROPOFOL 1,000 MG/100 ML BOTTLE IV SCH ×2 (06:29→09:01)
[2017-03-29] MEDS ORDERED: LIDOCAINE 1%/EPI INJ 20 ML VIAL ONE (07:10)
--- NOTE | 2017-03-29 08:01 | XRay Report ---
XR chest 1V portable Indication: Shortness of breath Comparison: 03/28/2017 Findings: The heart and mediastinum are stable in size and configuration. The lines and tubes are unchanged in position. The pulmonary vascularity is increased but similar to previous study. No lung infiltrates, effusions, pneumothorax or other abnormality is demonstrated. Impression: No significant change PROCEDURE INTERPRETED AT [facility] DEPARTMENT OF RADIOLOGY Final Report Signed by: Dr. Ayad Melo
--- NOTE | 2017-03-29 08:23 | Pulmonology Progress Note ---
Pulmonary - PN: Subj Interval history: Patient is a 56-year-old white man who is a heavy smoker and has COPD. He developed respiratory distress and had to be put on the ventilator. He was ventilated for a few days and his lungs are much better. He has been off the ventilator a couple days and is doing better. Last week he was doing reasonably well and was comfortable. He still has some hoarseness but was coughing okay. Apparently this weekend he got worse and started having more respiratory distress. He was reintubated and ventilated for a few days. Over the weekend we had to reintubate him. He does have a lot of mucosal changes in the upper airway and will need a biopsy. He is going for tracheostomy tube today. He will need to start tube feedings. He is comfortable on the ventilator. Exam (Progress Note) - Constitutional Vitals: Period Temp Pulse Resp BP Sys/Hart Pulse Ox Last 24 Hr 97.2 F-98.1 F 58-88 10-22 85-123/56-88 98-100 Exam: General appearance: normal weight, no acute distress (Patient is arousable and is comfortable on the ventilator.) - Head Head exam: Present: normal inspection, normocephalic - Eye Eye exam: Present: EOMI. Absent: scleral icterus Pupils: Present: PETE - ENT ENT exam: Present: He has an ET tube in place. - Neck Neck exam: his dia is shaved and he has a left neck mass. - Respiratory Respiratory exam: Present: He has distant breath sounds but he has adequate air movement and no wheezing. - Cardiovascular Cardiovascular exam: Present: regular rate and rhythm. Absent: gallop, systolic murmur - GI/Abdominal GI/Abdominal exam: Present: normal bowel sounds, soft. Absent: distended, tenderness - Extremities Exam Extremities exam: Absent: calf tenderness, edema, he has no signs of phlebitis. - Neurological Exam Neurological exam: Present: He does respond and is requiring sedation. - Psychiatric Psychiatric exam: patient is sedated and comfortable at present. - Skin Skin exam: Present: warm, dry Results - Labs CBC & BMP: 03/29/17 05:15 03/29/17 05:15 - Diagnostic Findings Procedure: Chest x-ray: image reviewed by me, report reviewed by me (Chest x- ray shows COPD changes and is stable) Assessment and Plan (1) Smoker Status: Chronic Assessment and plan: We will place a nicotine patch and he certainly needs to quit smoking. Current Visit: Yes (2) Acute exacerbation of chronic obstructive airways disease Status: Acute Assessment and plan: The patient comes in with an exacerbation of his COPD . He had to be reintubated and he does have some abnormalities in his upper trachea. 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 He is stable on the ventilator at present. He will go for tracheostomy tube today. Current Visit: Yes (3) Acute respiratory failure Status: Resolved Assessment and plan: The patient had to be ventilated for a few days and was doing okay last week. He had marked distress this weekend and was reintubated. He will need a tracheostomy tube and a biopsy of his upper airway. Current Visit: Yes Qualifiers: Respiratory failure complication: hypoxia Qualified Code(s): J96.01 - Acute respiratory failure with hypoxia
--- NOTE | 2017-03-29 08:38 | Hospitalist Progress Note ---
Assessment and Plan (1) Acute renal failure Status: Acute Assessment and plan: Today his BUN is 24 and creatinine 1.40. His BUN is mildly elevated since yesterday. He will continue to receive intravenous normal saline. Current Visit: No (2) Acute exacerbation of chronic obstructive airways disease Status: Acute Assessment and plan: As noted by pulmonary, he is stable with ventilatory support. He is scheduled to undergo a tracheostomy. Current Visit: Yes (3) Acute respiratory failure Status: Resolved Assessment and plan: See above. Current Visit: Yes Qualifiers: Respiratory failure complication: hypoxia Qualified Code(s): J96.01 - Acute respiratory failure with hypoxia (4) Leukocytosis Status: Acute Assessment and plan: His white blood count has decreased from 52,900-35,600. I will continue to follow on a daily basis. He is presently on intravenous antibiotics. Current Visit: Yes Hospitalist: Subjective Interval history: Patient is a 56-year-old white man who is a heavy smoker and has COPD. He developed respiratory distress and had to be put on the ventilator. He was ventilated for a few days and his lungs are much better. He has been off the ventilator a couple days and is doing better. Last week he was doing reasonably well and was comfortable. He still has some hoarseness but was coughing okay. Apparently this weekend he got worse and started having more respiratory distress. He was reintubated and ventilated for a few days. Over the weekend we had to reintubate him. He does have a lot of mucosal changes in the upper airway and will need a biopsy. He is going for tracheostomy tube today. He will need to start tube feedings. He is comfortable on the ventilator. Exam - Constitutional Vitals: Period Temp Pulse Resp BP Sys/Hart Pulse Ox Last 24 Hr 97.2 F-98.1 F 58-88 10-22 85-123/56-88 98-100 General appearance: no acute distress, other (Intubated on ventilator.) - Head Head exam: Present: normal inspection - Neck Neck exam: Present: normal inspection - Respiratory Respiratory exam: Present: clear to auscultation bilaterally - Cardiovascular Cardiovascular exam: Present: regular rate and rhythm - GI/Abdominal GI/Abdominal exam: Present: normal bowel sounds, soft, other (Nontender with no palpable masses or hepatosplenomegaly.) - Extremities Exam Extremities exam: Present: normal inspection - Neurological Exam Neurological exam: Present: alert - Skin Skin exam: Present: normal color, warm Results - Labs CBC & BMP: 03/29/17 05:15 03/29/17 05:15
[2017-03-29] MEDS: PHENYLEPHRINE DRIP 40 MG/250 ML PREMIX IV SCH (09:02)
[2017-03-29] MEDS: ENOXAPARIN 40 MG/0.4 ML SYRINGE SUBCUT SCH (09:03)
[2017-03-29] MEDS: MULTIVITAMIN (OCUVITE) TABLET PO SCH ×2 (09:03→21:09)
[2017-03-29] MEDS: NICOTINE 21 MG/24 HR PATCH TRANSDERM SCH (09:03)
[2017-03-29] MEDS: THIAMINE 100 MG TABLET PO SCH (09:04)
[2017-03-29] MEDS ORDERED: SEVOFLURANE 1 UNIT/15 MINUTE INH ONE (11:08)
[2017-03-29] MEDS ORDERED: VECURONIUM 10 MG VIAL IV ONE (11:09)
[2017-03-29] MEDS ORDERED: LACTATED RINGERS 1,000 ML IV ONE (11:09)
[2017-03-29] MEDS ORDERED: MIDAZOLAM 2 MG/2 ML VIAL ONE (11:09)
[2017-03-29 12:19] LABS: HIV Antigen/Antibody Result Nonreactive (Nonreactive); Hepatitis B Surface Ag Result Negative (Negative); Hepatitis C Virus Ab Quant 0.19 Index; Hepatitis C Virus Ab Result Negative (Negative)
[2017-03-29 13:59] LABS: ABG Base Excess 0.8 MMOL/L (-2.5-2.5); ABG HCO3 25.1 MMOL/L (20-26); ABG Oxygen Saturation 95.5 % (95-100); ABG PCO2 33.2 MM HG (35-48); ABG PH 7.465 (7.35-7.45); ABG PO2 76.4 MM HG (80-95); ABG TCO2 20.6 MMOL/L (23-27); Allen Test Positive
--- NOTE | 2017-03-29 15:37 | Operative Note ---
Date of procedure: 03/29/17 Procedure: PRE-DIAGNOSES: [Dependence on respirator/ventilator], [Ventilator status] [Respiratory failure], [Chronic; with hypoxia] [Neck mass] POST-DIAGNOSES: [Dependence on respirator/ventilator], [Ventilator status] [Respiratory failure], [Chronic; with hypoxia] [Neck mass] PROCEDURES: Tracheostomy Type: [Planned] [Sterile Technique(s): Large Sterile Drape; Gloves; Cap; Gown; Small Drape; Mask/Eye Shield] Prep: [Chlorhexidine] Securing Method: [Suture] [Midline neck mass debulking and biopsy 22 modifier on above Tracheoscopy performed for verification of placement and visualization for tracheal competence and potential spread of mass/possible cancer.] FINDINGS: [Cartilaginous trach and larynx with partial to complete cartilaginous destruction secondary to mass] [] TECHNIQUE: After appropriate informed consent was signed and placed on the chart patient was taken back to the operative theater where timeout was performed to verify the correct patient with correct procedure. Patient was transferred to the operative table where anesthesia performed general anesthesia with endotracheal tube that was exchanged from the tube in place in the unit and laryngeal nerve monitor was set up in case of thyroidectomy or more extensive dissection. Patient was sterilely prepped and draped. A total of 6 cc of lidocaine with 1 100,000 epinephrine was injected around the preplanned thyroidectomy incision. After total of 10 minutes were spent for appropriate vasoconstriction a Bovie was used to make the incision on 25 cut. 40 coag spray was used to dissect through the platysma and to his midline portion. Because of the size of the mass underlying and splaying the left strap muscles the strap muscles were transected using Bovie cautery on a setting of 40 spray. The large mass was very friable and with blunt digital manipulation it was debulked from the midline and left lateral portion of the trachea larynx which was overall destroyed or eaten away. The wound was then packed with 4 x 4's and dissection was carried inferiorly and substernally to find contiguous tracheal rings starting presumably at the fourth tracheal ring. The thyroid isthmus was divided that was overlying the fourth and fifth tracheal rings and a 15 blade scalpel was used to transect between the fourth and fifth tracheal ring and under direct visualization the endotracheal tube was removed and a Bivona 8 cuffed tube was placed into the trachea. All 4 x 4 packing was removed and the counts were correct. The strap muscles were reapproximated with 5-0 Vicryl suture. The left side of the trachea where the mass had been in the base and foundation of the mass continued to be and used Surgicel and Surgifoam were packed for hemostasis postoperatively. Additionally FloSeal was injected paratracheally for additional hemostasis. The platysma was reapproximated with 5-0 Vicryl suture in the dermis was reapproximated with 5-0 fast-absorbing gut suture except for around the midline where the trach emerged. The trach was sutured in place with 2-0 silk suture and a trach tie was placed along with drain sponge around the tracheostomy. Because of the extent of the case a tracheoscopy was performed to verify placement and continuity of the inferior portions of the trachea and bronchi bilaterally visualization revealed no dehiscence or extension of the tumor that would indicate lack of support of the inferior trachea fabrice and bronchi bilaterally. The tip of the Bivona trach appeared to be about 1/2 cm above the fabrice and the patient was ventilating well. All instrumentation was removed and the patient was taken back to the ICU where he slowly emerged from anesthesia during his time on pressurized/ ventilation he did develop some subcutaneous air and minimal oozing from around the trach he is been since taken off of the pressurized oxygen/ventilator therefore the subcutaneous air should not worsen and considering the above findings I think that this is reasonable. Additionally I spoke in depth with the patient and his family about my concern for this potentially being cancer. Currently patient is tolerating the trach very well. Because of the extent of the biopsy and secondary hemorrhage because of the vascular nature of the tumor and the loss of anatomical and architectural support of the larynx and the trachea this procedure took over 1 hour and a procedure that usually takes 15 minutes. Anesthesia: GETA Surgeon / Physician: Edward Monterroso Specimens: other (Central neck mass presumed squamous cell carcinoma) Condition: stable Disposition: ICU Results - Labs CBC & BMP: 03/29/17 05:15 03/29/17 05:15 Discharge Plan - Discharge Medications No Action No Known Home Medications [No Known Home Medications] - Follow Up or Referral - Forms/Instructions
[2017-03-29] MEDS ORDERED: VANCOMYCIN INJ 1,250 MG in SODIUM CHLORIDE 0.9% 250 ML IV SCH (18:00)
[2017-03-29] MEDS: FOLIC ACID 1 MG TABLET PO SCH (21:09)
[2017-03-30] MEDS: ALBUTEROL/IPRATROPIUM 3 ML NEB RESP TX SCH ×4 (00:33→19:13)
[2017-03-30] MEDS: methylPREDNISolone SOD SUC 40 MG/1 ML VIAL IV SCH ×3 (00:52→16:39)
[2017-03-30] MEDS: SODIUM CHLORIDE 0.9% 1,000 ML IV SCH ×3 (01:08→23:46)
[2017-03-30] MEDS: CEFEPIME 1,000 MG in SODIUM CHLORIDE 0.9% 100 ML IV SCH ×3 (02:15→17:34)
[2017-03-30] MEDS: MORPHINE 2 MG/1 ML SYRINGE IV PRN ×5 (02:15→20:17)
[2017-03-30 03:36] LABS: ABG Base Excess 0.1 MMOL/L (-2.5-2.5); ABG HCO3 24.5 MMOL/L (20-26); ABG Oxygen Saturation 98.4 % (95-100); ABG PCO2 37.3 MM HG (35-48); ABG PH 7.421 (7.35-7.45); ABG TCO2 21.3 MMOL/L (23-27); Allen Test Positive; Pt O2 Delivery Device Other
[2017-03-30 06:39] LABS: Basophils % 0.2 % (0.0-0.8); Hematocrit 33.4 VOL% (42.0-52.0); Hemoglobin 11.3 GM/DL (14.0-18.0); Immature Granulocytes % 1.7 %; Immature Granulocytes Absolute 0.41 #; Lymphocytes # 0.5 10*3/uL (1.4-4.0); Lymphocytes % 1.9 % (21.2-54.2); Mean Corpuscular HGB Conc 33.8 GM/DL (32-36); Mean Corpuscular Hemoglobin 34 PG (27-34); Mean Corpuscular Volume 100.9 FL (87-102); Monocytes # 0.8 10*3/uL (0.11-0.8); Monocytes % 3.2 % (1.7-12.7); Neutrophils # 22.3 10*3/uL (1.4-7.4); Platelet Count 160 T/CUMM (130-400); Red Blood Count 3.31 MC/CUMM (3.8-5.5); Red Cell Distribution Width 13.5 % (9.3-17.3)
[2017-03-30 07:04] LABS: Band Neutrophils 4 % (0-10); Calcium 7.2 MG/DL (8.5-10.1); Hypochromasia 1+; Lymphocytes 1 % (20-55); Magnesium 2.2 MG/DL (1.8-2.4); Osmolality,Calculated 294.4 MOS/KG (273-304); Ovalocytes Slight; Platelet Estimate Normal; Potassium 3.7 MMOL/L (3.5-5.1); Segmented Neutrophils 94 % (50-85); Total Cells Counted 100
--- NOTE | 2017-03-30 07:53 | XRay Report ---
XR chest 1V portable Indication: Shortness of breath Comparison: 29 March 2017 Findings: The heart and mediastinum are stable in size and configuration. There is large increase in subcutaneous emphysema overlying the lower neck. The endotracheal tube is been removed and replaced with tracheostomy tube. The pulmonary vascularity is normal in caliber. There is increased left lower lung density. No other lung infiltrates, effusions, pneumothorax or other abnormality is demonstrated. Impression: Tracheostomy tube placed, large amount of subcutaneous emphysema seen in the soft tissues of the neck cannot or chest. Increased left lower lung density could indicate infiltrate. PROCEDURE INTERPRETED AT [facility] DEPARTMENT OF RADIOLOGY Final Report Signed by: Dr. Ayad Melo
--- NOTE | 2017-03-30 07:59 | Pulmonology Progress Note ---
Pulmonary - PN: Subj Interval history: Patient is a 56-year-old white man who is a heavy smoker and has COPD. He has had respiratory failure and has been on and off the ventilator. He has had hoarseness and stridor and has a upper tracheal lesion. Yesterday he had a tracheostomy tube and biopsy of the neck mass. He has done well with a tracheostomy tube and is on trach collar now. His breathing is better and he is alert and talking a little. The pathology is pending. He will need a PEG tube and oncology to see. Exam (Progress Note) - Constitutional Vitals: Period Temp Pulse Resp BP Sys/Hart Pulse Ox Last 24 Hr 97.3 F-97.9 F 60-94 12-23 87-124/53-84 95-100 Exam: General appearance: normal weight, no acute distress (Patient is alert and comfortable on trach collar.) - Head Head exam: Present: normal inspection, normocephalic - Eye Eye exam: Present: EOMI. Absent: scleral icterus Pupils: Present: PETE - ENT ENT exam: unremarkable - Neck Neck exam: his dia is shaved and he has a left neck mass. He does have some subcutaneous air. - Respiratory Respiratory exam: Present: He has distant breath sounds but he has adequate air movement and no wheezing. - Cardiovascular Cardiovascular exam: Present: regular rate and rhythm. Absent: gallop, systolic murmur - GI/Abdominal GI/Abdominal exam: Present: normal bowel sounds, soft. Absent: distended, tenderness - Extremities Exam Extremities exam: Absent: calf tenderness, edema, he has no signs of phlebitis. - Neurological Exam Neurological exam: Present: He is alert and talking and moving everything. - Psychiatric Psychiatric exam: patient is comfortable at present. - Skin Skin exam: Present: warm, dry Results - Labs CBC & BMP: 03/30/17 05:00 03/30/17 05:00 Labs: His PO2 of 76 with a PCO2 of 33 and a pH of 7.46 on trach collar. - Diagnostic Findings Procedure: Chest x-ray: image reviewed by me, report reviewed by me (Chest x- ray looks okay with COPD changes. He has some subcutaneous emphysema.) Assessment and Plan (1) Smoker Status: Chronic Assessment and plan: We will place a nicotine patch and he certainly needs to quit smoking. Current Visit: Yes (2) Acute exacerbation of chronic obstructive airways disease Status: Acute Assessment and plan: The patient comes in with an exacerbation of his COPD . He had to be reintubated and he does have some abnormalities in his upper trachea. He got his tracheostomy tube yesterday and it does look like he has cancer in the upper airway. Current Visit: Yes (3) Acute respiratory failure Status: Resolved Assessment and plan: The patient had respiratory failure and had upper airway obstruction. Now has a tracheostomy tube and is breathing comfortably. Current Visit: Yes Qualifiers: Respiratory failure complication: hypoxia Qualified Code(s): J96.01 - Acute respiratory failure with hypoxia (4) Head and neck cancer Status: Acute Assessment and plan: Pathology is pending but he will need to see oncology and possible radiation therapy. Current Visit: Yes
--- NOTE | 2017-03-30 09:22 | Hospitalist Progress Note ---
Assessment and Plan (1) Acute renal failure Status: Acute Assessment and plan: Today his BUN is 22 and creatinine 0.30. He continues to receive intravenous normal saline. Current Visit: No (2) Acute exacerbation of chronic obstructive airways disease Status: Acute Assessment and plan: He is stable status post tracheostomy. He continues to be followed by pulmonary. Current Visit: Yes (3) Acute respiratory failure Status: Resolved Assessment and plan: See above. Current Visit: Yes Qualifiers: Respiratory failure complication: hypoxia Qualified Code(s): J96.01 - Acute respiratory failure with hypoxia (4) Leukocytosis Status: Acute Assessment and plan: His white blood count has decreased from 35,600 to 24,000. I will continue to follow on a daily basis. He is presently on intravenous antibiotics including vancomycin. Current Visit: Yes (5) Neck mass Status: Acute Assessment and plan: Biopsy was performed yesterday. Pathology is pending. Current Visit: Yes Hospitalist: Subjective Interval history: He is doing well today. He is comfortable with no pain or difficulty breathing. He is status post tracheostomy yesterday. Pathology is pending from the biopsy of the neck mass. He will be seen in consultation by gastroenterology for PEG tube placement. I will wait until the biopsy results are valuable before consulting oncology. Exam - Constitutional Vitals: Period Temp Pulse Resp BP Sys/Hart Pulse Ox Last 24 Hr 97.3 F-97.9 F 60-94 12-23 87-124/53-84 95-100 General appearance: normal weight, no acute distress - Head Head exam: Present: normal inspection - Neck Neck exam: Present: other (Tracheostomy with collar.) - Respiratory Respiratory exam: Present: other (Scattered rhonchi.) - Cardiovascular Cardiovascular exam: Present: regular rate and rhythm - GI/Abdominal GI/Abdominal exam: Present: normal bowel sounds, soft, other (No palpable masses or hepatosplenomegaly.) - Extremities Exam Extremities exam: Present: normal inspection - Neurological Exam Neurological exam: Present: alert, oriented X3 - Psychiatric Psychiatric exam: Present: normal affect - Skin Skin exam: Present: normal color, warm, intact Results - Labs CBC & BMP: 03/30/17 05:00 03/30/17 05:00
[2017-03-30] MEDS: PHENYLEPHRINE DRIP 40 MG/250 ML PREMIX IV SCH (09:26)
[2017-03-30] MEDS: PROPOFOL 1,000 MG/100 ML BOTTLE IV SCH (09:26)
[2017-03-30] MEDS: MULTIVITAMIN (OCUVITE) TABLET PO SCH (09:31)
[2017-03-30] MEDS: THIAMINE 100 MG TABLET PO SCH (09:31)
[2017-03-30] MEDS: NICOTINE 21 MG/24 HR PATCH TRANSDERM SCH (09:37)
[2017-03-30] MEDS: ENOXAPARIN 40 MG/0.4 ML SYRINGE SUBCUT SCH (09:37)
[2017-03-30 11:06] LABS: Basophils % 0.1 % (0.0-0.8); Hematocrit 34.4 VOL% (42.0-52.0); Hemoglobin 11.8 GM/DL (14.0-18.0); Immature Granulocytes % 1.6 %; Immature Granulocytes Absolute 0.36 #; Lymphocytes # 0.7 10*3/uL (1.4-4.0); Lymphocytes % 2.9 % (21.2-54.2); Mean Corpuscular HGB Conc 34.3 GM/DL (32-36); Mean Corpuscular Hemoglobin 35 PG (27-34); Mean Corpuscular Volume 100.9 FL (87-102); Mean Platelet Volume 10.1 FL (9.6-12.0); Monocytes # 0.8 10*3/uL (0.11-0.8); Monocytes % 3.4 % (1.7-12.7); Neutrophils # 21.4 10*3/uL (1.4-7.4); Platelet Count 157 T/CUMM (130-400); Red Blood Count 3.41 MC/CUMM (3.8-5.5); Red Cell Distribution Width 13.4 % (9.3-17.3); White Blood Count 23.2 T/CUMM (4-12)
[2017-03-30] MEDS: DESITIN 4OZ/NYSTATIN 15 GRAM MIXTURE PASTE TOP SCH (11:24)
[2017-03-30] MEDS: VANCOMYCIN INJ 1,250 MG in SODIUM CHLORIDE 0.9% 250 ML IV SCH ×2 (11:24→22:45)
[2017-03-30 11:25] LABS: Band Neutrophils 2 % (0-10); Lymphocytes 2 % (20-55); Nucleated Red Blood Cells 1 (0-5); Segmented Neutrophils 94 % (50-85); Total Cells Counted 100
[2017-03-30 11:26] LABS: Macrocytosis Slight; Platelet Estimate Adequate
[2017-03-30 11:45] LABS: Calcium 7.6 MG/DL (8.5-10.1)
[2017-03-30 11:46] LABS: Osmolality,Calculated 292.6 MOS/KG (273-304); Potassium 3.6 MMOL/L (3.5-5.1)
--- NOTE | 2017-03-30 12:24 | Pathology Report from [facility] ---
[facility] ACCESSION # : [id number] PATIENT NAME : Jerrod San ORDERING DR : Edward Monterroso DO CLINICAL HX: Acute respiratory failure - Neck mass POST-OP DX: Same SPECIMEN INFO: Neck mass GROSS DESCRIPTION: The specimen received fresh labeled JERROD SAN is multiple nodular red to yellow firm tissue fragments with hemorrhage ranging from 1.5 cm to 5.5 cm in greatest dimension and having an aggregate measure of 6.5 x 5.0 x 3.0 cm. No skin is present. There is a possible 3.0 x 3.5 cm portion of mucosal surface. The fragments have a modularity somewhere to salivary glands. Cut surfaces are homogenous, firm and white. Parts Room Assistant sections are submitted in cassettes 1A thru 1D. 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 COLLECTED DATE: 03/29/2017 [facility] REPORT DATE: 03/30/2017 ELECTRONICALLY SIGNED BY: Ayde Eldridge M.D. 03/30/2017 - 9:48:31 [facility]WORK[facility]ina
--- NOTE | 2017-03-30 12:56 | Progress Note ---
Assessment and Plan - Time spent with patient Time spent with patient: Greater than 30 minutes (1) Squamous cell carcinoma of neck Status: Acute Assessment and plan: Pathology confirms squamous cell carcinoma clinical and surgical staging is currently T4 N3 M? 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 I discussed in detail yesterday after surgery and this morning with him and his family in regards to different possible treatment options. I discussed to attempt a curative treatment it would likely need chemotherapy, radiotherapy, surgical therapy. The patient did not desire to proceed with an aggressive curative treatment plan. I discussed with the patient other possible/probable palliative treatment options including chemotherapy plus or minus radiotherapy in which the patient also did not want to undergo palliative treatment. I additionally discussed hospice care that he was interested in. I will try to set up a hospice consult for him. Additionally I am unsure whether oncology has or has not been consulted if so I defer to them for any additional possible treatment options that may or may not be available. Additionally I will also ask for a Passy-Ellen valve replacement the patient's trach so that he can use his voice that is currently still functional. I will continue to follow this patient intermittently throughout his stay. Current Visit: Yes (2) Ventilator dependence Status: Acute Assessment and plan: I will tentatively put him on for a trach tomorrow in the OR. Will obtain consent and hold anticoagulants and any tube feedings. Additionally I will obtain a CT of the neck with contrast to verify any abnormal anatomy and we will possibly do an open biopsy if there is any grossly obvious abnormal anatomy. His white count is extremely high and we may request a peripheral smear I am not sure this will clarify as to why but it seems odd that his white count is so high in light of his IV antibiotic therapy and the length of time that he is been treated. Thank you very much for notifying me of this and we will put him on the schedule for tomorrow. Current Visit: Yes (3) Stridor Status: Acute Assessment and plan: Bedside laryngoscopy was suboptimal because of ET tube but I saw no gross lesions that would cause the patient stridor. I would recommend re-extubation preferably tomorrow/Tuesday as I will be in the hospital and could potentially walk over and evaluate if he was having any problem at the time. If he continues to have problem we may have to discuss alternative recommendations such as immediate placement on CPAP/BiPAP or potentially tracheostomy. I will continue to follow this patient intermittently. Thank you very much for this consultation. 03/22/2017 The patient tolerated extubation well with no evidence of stridor for the first 30 minutes after extubation feel the patient will not need any intervention or more aggressive management of the airway. I will sign off on this case but I think you for consulting me if there are any additional questions or concerns please do not hesitate to notify me. Current Visit: Yes (4) Acute exacerbation of chronic obstructive airways disease Status: Acute Current Visit: Yes (5) Acute respiratory failure Status: Resolved Current Visit: Yes Qualifiers: Respiratory failure complication: hypoxia Qualified Code(s): J96.01 - Acute respiratory failure with hypoxia (6) Smoker Status: Chronic Current Visit: Yes (7) Goiter Status: Acute Current Visit: Yes Family Medicine PN Sub Interval history: Follow-up status post tracheostomy and deep neck biopsy/debulking of tumor. Patient is doing much better he is breathing well through his tracheostomy which is in place and patent. The mild oozing has decreased substantially. He states he has minimal pain. He is actually able to phonate with occlusion of the tracheostomy tube. His subcutaneous air has decreased substantially after being off the vent. Overall patient is doing well Exam (Progress Note) - Constitutional Vitals: Period Temp Pulse Resp BP Sys/Hart Pulse Ox Last 24 Hr 97.7 F-97.9 F 60-94 12-23 87-122/53-74 95-100 General appearance: normal weight, no acute distress - Head Head exam: Present: normal inspection, normocephalic - Eye Eye exam: Present: EOMI, periorbital swelling Pupils: Present: PETE - ENT ENT exam: Present: normal exam, normal external ear exam, normal oropharynx - Neck Neck exam: Present: lymphadenopathy, other (Midline tracheostomy in place and patent) - Respiratory Respiratory exam: Present: other (No shortness of breath or difficulty breathing on trach collar currently) - Cardiovascular Cardiovascular exam: Present: regular rate and rhythm - GI/Abdominal GI/Abdominal exam: Present: soft, other (Being evaluated for PEG tube placement which I agree with) - Extremities Exam Extremities exam: Present: normal inspection, normal capillary refill - Neurological Exam Neurological exam: Present: alert, oriented X3, CN II-XII intact - Psychiatric Psychiatric exam: Present: normal affect, normal mood - Skin Skin exam: Present: normal color, warm Results - Labs CBC & BMP: 03/30/17 10:57 03/30/17 10:57 Lab Results: I have reviewed the past 24 hour labs (Pathology reports moderately differentiated squamous cell carcinoma with necrosis which is consistent with clinical and surgical findings.) - Diagnostic Findings Procedure: CT: pending, image reviewed by me, report reviewed by me
--- NOTE | 2017-03-30 13:00 | Gastrointestinal Consult Note ---
Assessment and Plan (1) Squamous cell carcinoma of head and neck Status: Acute Assessment and plan: This is the cause for the underlying pharyngeal dysphagia. Was diagnosed on pathology that is returned again today as per Dr. Monterroso. CT scan seems to indicate that this is coming from the neck near the thyroid however is certainly possible this may be a esophageal squamous cell carcinoma given this patient's history of drinking and smoking. We should be able to determine if this is indeed the case one-way perform upper endoscopy and see if there is luminal involvement versus external compression. Current Visit: Yes (2) Pharyngeal dysphagia Status: Acute Assessment and plan: Patient does have pharyngeal dysphagia caused by presumed external compression of the esophagus. He is really not been able to eat for some weeks now, he is now status post tracheostomy placement and biopsy of the squamous cell carcinoma mass by Dr. Monterroso. We will be placing a PEG tube however this cannot be placed tomorrow due to the proximity of the last Lovenox dosing at 0937 this morning. We will plan to place this on Tuesday at 0930 to give him adequate time off of the medication to decrease his bleeding risk. We will have anesthesiology assess his risk prior to placement of the PEG tube. Again the esophagogastroduodenoscopy should be able to assess if this is a intraluminal esophageal cancer producing the squamous cell cancer. Current Visit: Yes (3) Anemia Status: Acute Assessment and plan: The patient does have mild ongoing anemia likely secondary to bone marrow suppression with his chronic disease/cancer. The current hematocrit is 34.4%. Current Visit: Yes (4) Pancreatitis Status: Acute Assessment and plan: No further evidence of pancreatitis this admission. Again the patient had stopped drinking some time ago and is already had his gallbladder taken out removing the sludge from potentially worsening this entity. Liver function tests look fine, no lipase level recheck was done this admission. Current Visit: No Qualifiers: Chronicity: chronic Pancreatitis type: unspecified pancreatitis type Qualified Code(s): K86.1 - Other chronic pancreatitis History of Present Illness Chief complaint: Squamous cell neck cancer, patient needs PEG tube placement History of present illness: Mr. San is a 57 year old male who has been seen previously by myself for his episode of pancreatitis experienced back in 12/25/15, this was thought to be secondary to his gallbladder sludge and possibly alcohol intake which he has since discontinued. The patient also ended up having a gallbladder resection done with cholangiogram done by Dr. Gamez that was clear. The patient was subsequently readmitted to the hospital on 03/13/17 after transfer from [facility] with shortness of breath and a very large squamous cell carcinoma recently biopsied that involves the neck at the level of the thyroid, on soft tissue evaluation on neck CT this was sized at 70 x 62 x 56 mm at about the level of the left lobe of the thyroid. This does not appear to be thyroid cancer however. This patient has been a heavy smoker up until this admission and also an alcoholic-caliber drinker in the past he cannot speak words but can mouth certain phrases and it looks like he had discontinued drinking approximately a month prior to this admission. His hematocrit is low at 33.4 his white blood cell count is elevated at 20 3.2K. This patient needs a long- term solution to medication hydration and nutritional needs given his upcoming transfer to hospice versus surgical resection of the cancer and bilateral neck exploration with chemotherapy versus radiation versus both. He is currently being followed by Dr. Edward Monterroso of ENT, and Dr. Haseeb Salgado of pulmonology. Will arrange for PEG tube placement tomorrow provided he is off his Lovenox for at least one day. In discussion with the nurse it seems the patient last got this morning at 09:37 AM. He is not having any abdominal pain. He has not been fed since his arrival. No no bowel movements today. Home Medications Medication Instructions Recorded Confirmed Type No Known Home Medications [No 03/13/17 03/13/17 History Known Home Medications] Allergies Allergy/AdvReac Type Severity Reaction Status Date / Time No Known Allergies Allergy Verified 12/18/15 23:34 Medical,Surgical,& Family Hx - Medical History HEENT: History of: Ear Problem (ear infection) Respiratory: History of: COPD Gastrointestinal: History of: GERD, Liver Problems (enlarged liver), Pancreatitis, GI Problems (hiatal hernia) Musculoskeletal: History of: Back/Neck Problems - Surgical History Abdominal Surgeries: Surgical HX of: Cholecystectomy - Family History Family History: Reports;: Family Cancer (grandfather-lung,dad-brain/lung, grandmother-breast, aunt-"female"), Family Diabetes (grandmothers), Family Hypertension (mother), Family Stroke (mother ahd multiple cvas) Denies;: Family Anesthesia Reaction, Family Heart Disease, Family Psychiatric Problems - Social History Smoking Status: Current every day smoker Frequency of Alcohol Use: None Type of Drug Use: None ROS unobtainable: due to endotracheal tube Exam - Constitutional Vitals: Period Temp Pulse Resp BP Sys/Hart Pulse Ox Last 24 Hr 97.7 F-97.9 F 60-94 12-23 87-122/53-74 95-100 Exam: Constitutional: Well-developed, well-nourished, alert, and in no acute distress Head and face: Head: Normocephalic atraumatic Eyes: Conjunctiva without injection, no gross scleral icterus, pupils equal and round bilaterally Ears: Intact to conversation in both ears Nose: External appearance is normal, nares patent Mouth: Oral mucous membranes moist without erythema dentition noted to be without erosion Neck: Normal appearance, no masses or tenderness, trachea midline Thyroid: tracheostomy in place, neck swelling noted. Respiratory: Normal respiratory effort, clear to auscultation without wheezes, rhonchi or rales Cardiovascular: Regular rate and rhythm, normal S1, S2, the exam is without rubs, murmurs or gallops. Gastrointestinal: Nontender to palpation, normal active bowel sounds, tone normal without rigidity or guarding, no masses present, no hepatomegaly, no spleen tip felt. No rectal exam obtained. Lymphatic: Neck without adenopathy, axilla without lymphadenopathy present Musculoskeletal: Right and left lower extremities without evidence of edema , some muscular wasting noted Skin and subcutaneous tissue: No rashes or ulcerations noted, normal skin turgor, digits and nails without clubbing/cyanosis/deformities. Neurologic: The patient is unable to be assessed for mentation however, cranial nerves show tongue movements are normal with normal tongue extrusion midline, light touch sensation is intact. Psychiatric: Unable to assess Results - Labs CBC & BMP: 03/30/17 10:57 03/30/17 10:57
--- NOTE | 2017-03-30 14:19 | Anesthesia Post-Op ---
Anesthesia Post OP - Post Ansesthetic Evaluation Patient seen in post op: Yes Resp: within normal limits CV: within normal limits Mental: within normal limits Temp: within normal limits Nawp-[id number]-Desgjslnt: within normal limits Nausea and Vomiting: within normal limits Pain: within normal limits
[2017-03-31] MEDS: ALBUTEROL/IPRATROPIUM 3 ML NEB RESP TX SCH ×4 (00:47→19:24)
[2017-03-31] MEDS: DESITIN 4OZ/NYSTATIN 15 GRAM MIXTURE PASTE TOP SCH ×3 (01:47→21:53)
[2017-03-31] MEDS: FOLIC ACID 1 MG TABLET PO SCH ×2 (01:47→21:53)
[2017-03-31] MEDS: methylPREDNISolone SOD SUC 40 MG/1 ML VIAL IV SCH ×3 (01:47→15:22)
[2017-03-31] MEDS: MULTIVITAMIN (OCUVITE) TABLET PO SCH ×3 (01:47→21:53)
[2017-03-31] MEDS: MORPHINE 2 MG/1 ML SYRINGE IV PRN ×4 (01:48→17:32)
[2017-03-31] MEDS: CEFEPIME 1,000 MG in SODIUM CHLORIDE 0.9% 100 ML IV SCH ×3 (01:59→17:10)
[2017-03-31 02:55] LABS: ABG Base Excess -0.6 MMOL/L (-2.5-2.5); ABG Oxygen Saturation 98.1 % (95-100); ABG PCO2 35.6 MM HG (35-48); ABG PH 7.424 (7.35-7.45); ABG TCO2 20.2 MMOL/L (23-27); Allen Test Positive; Pt O2 Delivery Device Other
--- NOTE | 2017-03-31 07:35 | Pulmonology Progress Note ---
Pulmonary - PN: Subj Interval history: Patient is a 56-year-old white man who is a heavy smoker and has COPD. He has had respiratory failure and has been on and off the ventilator. He has had hoarseness and stridor and has a upper tracheal lesion. He had a tracheostomy tube and biopsy of the neck mass. He has done well with a tracheostomy tube and is on trach collar now. His breathing is better and he is alert and talking a little. 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 He is scheduled for a PEG tube tomorrow. He continues to breathe comfortably on trach collar. Will ask oncology to see. Exam (Progress Note) - Constitutional Vitals: Period Temp Pulse Resp BP Sys/Hart Pulse Ox Last 24 Hr 98.2 F-99.6 F 53-74 14-28 92-116/56-76 97-100 Exam: General appearance: normal weight, no acute distress (Patient is alert and comfortable on trach collar.) - Head Head exam: Present: normal inspection, normocephalic - Eye Eye exam: Present: EOMI. Absent: scleral icterus Pupils: Present: PETE - ENT ENT exam: unremarkable - Neck Neck exam: his dia is shaved and he has a left neck mass. He does have some subcutaneous air. He has a tracheostomy tube in place. - Respiratory Respiratory exam: Present: He has distant breath sounds but he has adequate air movement and no wheezing. - Cardiovascular Cardiovascular exam: Present: regular rate and rhythm. Absent: gallop, systolic murmur - GI/Abdominal GI/Abdominal exam: Present: normal bowel sounds, soft. Absent: distended, tenderness - Extremities Exam Extremities exam: Absent: calf tenderness, edema, he has no signs of phlebitis. - Neurological Exam Neurological exam: Present: He is alert and talking and moving everything. - Psychiatric Psychiatric exam: patient is comfortable at present. - Skin Skin exam: Present: warm, dry Results - Labs CBC & BMP: 03/30/17 10:57 03/30/17 10:57 Assessment and Plan (1) Smoker Status: Chronic Assessment and plan: We will place a nicotine patch and he certainly needs to quit smoking. Current Visit: Yes (2) Acute exacerbation of chronic obstructive airways disease Status: Acute Assessment and plan: The patient comes in with an exacerbation of his COPD . He now has a tracheostomy tube. His breathing is fairly stable at present Current Visit: Yes (3) Acute respiratory failure Status: Resolved Assessment and plan: The patient had respiratory failure and had upper airway obstruction. Now has a tracheostomy tube and is breathing comfortably. 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 He would need further treatment. Current Visit: Yes
--- NOTE | 2017-03-31 07:58 | Hospitalist Progress Note ---
Assessment and Plan (1) Acute renal failure Status: Acute Assessment and plan: Today his BUN is 23 and creatinine 0.30. He continues to receive intravenous normal saline. Current Visit: No (2) Acute exacerbation of chronic obstructive airways disease Status: Acute Assessment and plan: He is stable status post tracheostomy. He continues to be followed by pulmonary. Current Visit: Yes (3) Acute respiratory failure Status: Resolved Assessment and plan: See above. Current Visit: Yes Qualifiers: Respiratory failure complication: hypoxia Qualified Code(s): J96.01 - Acute respiratory failure with hypoxia (4) Leukocytosis Status: Acute Assessment and plan: His white blood count has decreased from 35,600 to 23,200. I will continue to follow on a daily basis. He is presently on intravenous antibiotics including vancomycin. Current Visit: Yes (5) Neck mass Status: Acute Assessment and plan: Biopsy pathology showed squammous cell Ca. Oncology has been consulted. He is to undergo PEG tube placement. Current Visit: Yes Hospitalist: Subjective Interval history: Patient is a 56-year-old white man who is a heavy smoker and has COPD. He has had respiratory failure and has been on and off the ventilator. He has had hoarseness and stridor and has a upper tracheal lesion. He had a tracheostomy tube and biopsy of the neck mass. He has done well with a tracheostomy tube and is on trach collar now. His breathing is better and he is alert and talking a little. 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 He is scheduled for a PEG tube tomorrow. He continues to breathe comfortably on trach collar. He appears comfortable. I have consulted Oncology. Exam - Constitutional Vitals: Period Temp Pulse Resp BP Sys/Hart Pulse Ox Last 24 Hr 98.2 F-99.6 F 53-74 14-27 92-116/56-76 97-100 General appearance: no acute distress, other (Tracheostomy collar) - Head Head exam: Present: normal inspection - Neck Neck exam: Present: other (Bandage incision of neck mass.) - Respiratory Respiratory exam: Present: other (Scattered rhonchi.) - Cardiovascular Cardiovascular exam: Present: regular rate and rhythm - GI/Abdominal GI/Abdominal exam: Present: normal bowel sounds, soft, other (Nontender with no palpable masses or hepatosplenomegaly.) - Neurological Exam Neurological exam: Present: alert, oriented X3 - Psychiatric Psychiatric exam: Present: normal affect - Skin Skin exam: Present: normal color, warm, intact Results - Labs CBC & BMP: 03/30/17 10:57 03/30/17 10:57
--- NOTE | 2017-03-31 08:13 | Gastrointestinal Progress Note ---
Assessment and Plan (1) Squamous cell carcinoma of head and neck Status: Acute Assessment and plan: This is the cause for the underlying pharyngeal dysphagia. Was diagnosed on pathology that is returned again today as per Dr. Monterroso. CT scan seems to indicate that this is coming from the neck near the thyroid however is certainly possible this may be a esophageal squamous cell carcinoma given this patient's history of drinking and smoking. We should be able to determine if this is indeed the case one-way perform upper endoscopy and see if there is luminal involvement versus external compression. 03/31/17--The patient is due to get his PEG tube tomorrow. He remains in the ICU for the present time. Current Visit: Yes (2) Pharyngeal dysphagia Status: Acute Assessment and plan: Patient does have pharyngeal dysphagia caused by presumed external compression of the esophagus. He is really not been able to eat for some weeks now, he is now status post tracheostomy placement and biopsy of the squamous cell carcinoma mass by Dr. Monterroso. We will be placing a PEG tube however this cannot be placed tomorrow due to the proximity of the last Lovenox dosing at 0937 this morning. We will plan to place this on Tuesday at 0930 to give him adequate time off of the medication to decrease his bleeding risk. We will have anesthesiology assess his risk prior to placement of the PEG tube. Again the esophagogastroduodenoscopy should be able to assess if this is a intraluminal esophageal cancer producing the squamous cell cancer. 03/31/17--Again we are awaiting upper endoscopy to see whether or not the patient 's difficulty with swallowing is due to intraluminal squamous cell carcinoma of the esophagus versus extraluminal compression from head and neck cancer. Upper endoscopy to occur about 9:30 to 11:30 tomorrow morning. Current Visit: Yes (3) Anemia Status: Acute Assessment and plan: The patient does have mild ongoing anemia likely secondary to bone marrow suppression with his chronic disease/cancer. The current hematocrit is 34.4%. 03/31/17--CBC not rechecked this morning. This patient does have a significant leukocytosis in addition. Current Visit: Yes (4) Pancreatitis Status: Acute Assessment and plan: No further evidence of pancreatitis this admission. Again the patient had stopped drinking some time ago and is already had his gallbladder taken out removing the sludge from potentially worsening this entity. Liver function tests look fine, no lipase level recheck was done this admission. 03/31/17--No further pancreatitis clinically this admission. Current Visit: No Qualifiers: Chronicity: chronic Pancreatitis type: unspecified pancreatitis type Qualified Code(s): K86.1 - Other chronic pancreatitis Gastroenterology - PN: Subj Interval history: Patient appears to be in good spirits this morning. Nursing staff had felt for impaction this morning and discovered that he had a large amount of stool, he was given a makeshift enema and passed a great deal of stool as a result and the patient feels a fair amount of relief. We are on track for placement of PEG tube tomorrow once the patient is been off his Lovenox for full 24 hours. I am unsure as to whether or not the nurse fish stringer assembler will allow the patient to come to the GI suite for placement or have to do this at the bedside in the ICU-- I suspect the latter. Exam (Progress Note) - Constitutional Vitals: Period Temp Pulse Resp BP Sys/Hart Pulse Ox Last 24 Hr 98.2 F-99.6 F 53-74 14-27 92-116/56-76 97-100 General appearance: no acute distress - Eye Eye exam: Present: EOMI Pupils: Present: PETE - Respiratory Respiratory exam: Present: clear to auscultation bilaterally - Cardiovascular Cardiovascular exam: Present: regular rate and rhythm - GI/Abdominal GI/Abdominal exam: Present: normal bowel sounds, soft. Absent: distended, tenderness, rebound - Neurological Exam Neurological exam: Present: alert, altered (The patient still is missing a Passy -Ellen valve and so cannot articulate his orientation.) - Psychiatric Psychiatric exam: Present: normal affect, normal mood - Skin Skin exam: Present: warm Results - Labs CBC & BMP: 03/30/17 10:57 03/30/17 10:57
[2017-03-31] MEDS: PHENYLEPHRINE DRIP 40 MG/250 ML PREMIX IV SCH (08:45)
[2017-03-31] MEDS: NICOTINE 21 MG/24 HR PATCH TRANSDERM SCH (08:55)
[2017-03-31] MEDS: THIAMINE 100 MG TABLET PO SCH (09:01)
[2017-03-31] MEDS: SODIUM CHLORIDE 0.9% 1,000 ML IV SCH ×3 (10:20→21:54)
[2017-03-31] MEDS: VANCOMYCIN INJ 1,250 MG in SODIUM CHLORIDE 0.9% 250 ML IV SCH ×2 (10:25→17:49)
[2017-04-01] MEDS: ALBUTEROL/IPRATROPIUM 3 ML NEB RESP TX SCH ×4 (00:57→19:48)
[2017-04-01] MEDS: methylPREDNISolone SOD SUC 40 MG/1 ML VIAL IV SCH ×3 (01:11→15:25)
[2017-04-01] MEDS: SODIUM CHLORIDE 0.9% 1,000 ML IV SCH ×5 (01:11→21:41)
[2017-04-01] MEDS: CEFEPIME 1,000 MG in SODIUM CHLORIDE 0.9% 100 ML IV SCH ×3 (01:13→17:45)
[2017-04-01] MEDS: VANCOMYCIN INJ 1,250 MG in SODIUM CHLORIDE 0.9% 250 ML IV SCH ×3 (01:13→21:42)
[2017-04-01 03:32] LABS: ABG Base Excess -2.4 MMOL/L (-2.5-2.5); ABG HCO3 22.4 MMOL/L (20-26); ABG Oxygen Saturation 97.7 % (95-100); ABG PCO2 33.6 MM HG (35-48); ABG PH 7.412 (7.35-7.45); ABG TCO2 18.9 MMOL/L (23-27); Allen Test Positive
[2017-04-01] MEDS: MORPHINE 2 MG/1 ML SYRINGE IV PRN ×5 (03:49→21:57)
[2017-04-01 05:54] LABS: Basophils # 0.1 10*3/uL (0.0-0.2); Basophils % 0.2 % (0.0-0.8); Hematocrit 34.7 VOL% (42.0-52.0); Hemoglobin 12.3 GM/DL (14.0-18.0); Immature Granulocytes % 1.3 %; Immature Granulocytes Absolute 0.34 #; Lymphocytes # 0.6 10*3/uL (1.4-4.0); Lymphocytes % 2.2 % (21.2-54.2); Mean Corpuscular HGB Conc 35.4 GM/DL (32-36); Mean Corpuscular Hemoglobin 35 PG (27-34); Mean Corpuscular Volume 97.7 FL (87-102); Mean Platelet Volume 10.6 FL (9.6-12.0); Monocytes # 0.6 10*3/uL (0.11-0.8); Monocytes % 2.4 % (1.7-12.7); Neutrophils # 24.7 10*3/uL (1.4-7.4); Neutrophils % 93.9 % (38.7-73.9); Platelet Count 162 T/CUMM (130-400); Red Blood Count 3.55 MC/CUMM (3.8-5.5); White Blood Count 26.3 T/CUMM (4-12)
[2017-04-01 06:08] LABS: Calcium 7.5 MG/DL (8.5-10.1); Osmolality,Calculated 279.4 MOS/KG (273-304); Potassium 3.9 MMOL/L (3.5-5.1)
[2017-04-01 07:10] LABS: Band Neutrophils 2 % (0-10); Lymphocytes 1 % (20-55); Polychromasia Slight; Segmented Neutrophils 97 % (50-85); Total Cells Counted 100
[2017-04-01 07:11] LABS: Platelet Estimate Adequate
[2017-04-01 07:37] LABS: INR 1.1; PT Patient Result 11.4 SECS
--- NOTE | 2017-04-01 07:47 | XRay Report ---
XR chest 1V portable Indication: Respiratory failure Comparison: 30 March 2017 Findings: The heart and mediastinum are stable in size and configuration. The lines and tubes are unchanged in position. The pulmonary vascularity is increased. Subcutaneous emphysema appears slightly improved. No lung infiltrates, effusions, pneumothorax or other abnormality is demonstrated. Impression: Slight increase pulmonary vascularity may indicate mild cardiac decompensation. PROCEDURE INTERPRETED AT [facility] DEPARTMENT OF RADIOLOGY Final Report Signed by: Dr. Ayad Melo
--- NOTE | 2017-04-01 07:55 | Pulmonology Progress Note ---
Pulmonary - PN: Subj Interval history: Patient is a 56-year-old white man who is a heavy smoker and has COPD. He has had respiratory failure and has been on and off the ventilator. He has had hoarseness and stridor and has a upper tracheal lesion. He had a tracheostomy tube and biopsy of the neck mass. He has done well with a tracheostomy tube and is on trach collar now. His breathing is better and he is alert and talking a little. 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 He is breathing comfortably on trach collar. He is getting a PEG tube this morning. His overall prognosis is very poor. He is not sure he wants to try chemotherapy or not. Exam (Progress Note) - Constitutional Vitals: Period Temp Pulse Resp BP Sys/Hart Pulse Ox Last 24 Hr 97.2 F-97.8 F 52-69 12-33 85-126/59-93 97-100 Exam: General appearance: normal weight, no acute distress (Patient is alert and comfortable on trach collar.) - Head Head exam: Present: normal inspection, normocephalic - Eye Eye exam: Present: EOMI. Absent: scleral icterus Pupils: Present: PETE - ENT ENT exam: unremarkable - Neck Neck exam: his dia is shaved and he has a left neck mass. He does have some subcutaneous air. He has a tracheostomy tube in place. - Respiratory Respiratory exam: Present: He has distant breath sounds but he has adequate air movement and no wheezing. He continues to breathe comfortably at present. - Cardiovascular Cardiovascular exam: Present: regular rate and rhythm. Absent: gallop, systolic murmur - GI/Abdominal GI/Abdominal exam: Present: normal bowel sounds, soft. Absent: distended, tenderness - Extremities Exam Extremities exam: Absent: calf tenderness, edema, he has no signs of phlebitis. - Neurological Exam Neurological exam: Present: He is alert and talking and moving everything. - Psychiatric Psychiatric exam: patient is comfortable at present. - Skin Skin exam: Present: warm, dry Results - Labs CBC & BMP: 04/01/17 05:30 04/01/17 05:30 Labs: His PO2 is 107 with a PCO2 of 33 and a pH of 7.41. - Diagnostic Findings Procedure: Chest x-ray: image reviewed by me, report reviewed by me (Chest x- ray shows COPD changes but is stable.) Assessment and Plan (1) Smoker Status: Chronic Assessment and plan: We will place a nicotine patch and he certainly needs to quit smoking. Current Visit: Yes (2) Acute exacerbation of chronic obstructive airways disease Status: Acute Assessment and plan: The patient comes in with an exacerbation of his COPD . He now has a tracheostomy tube. His breathing is fairly stable at present. He can move to a regular room after his PEG tube. Current Visit: Yes (3) Acute respiratory failure Status: Resolved Assessment and plan: The patient had respiratory failure and had upper airway obstruction. Now has a tracheostomy tube and is breathing comfortably. 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 He will discuss treatment with oncology. He is getting a PEG tube this morning. Current Visit: Yes
--- NOTE | 2017-04-01 08:30 | Hospitalist Progress Note ---
Assessment and Plan (1) Acute renal failure Status: Acute Assessment and plan: Today his BUN is 17 and creatinine 0.20. He continues to receive intravenous normal saline. Current Visit: No (2) Acute exacerbation of chronic obstructive airways disease Status: Acute Assessment and plan: He is stable status post tracheostomy. He continues to be followed by pulmonary. Current Visit: Yes (3) Acute respiratory failure Status: Resolved Assessment and plan: See above. He is significantly improved. He appears comfortable on the tracheostomy collar. Current Visit: Yes Qualifiers: Respiratory failure complication: hypoxia Qualified Code(s): J96.01 - Acute respiratory failure with hypoxia (4) Leukocytosis Status: Acute Assessment and plan: His white blood count has decreased from 35,600 to 26,300. I will continue to follow on a daily basis. He is presently on intravenous antibiotics including vancomycin. Current Visit: Yes (5) Neck mass Status: Acute Assessment and plan: Biopsy pathology showed squammous cell Ca. Oncology has been consulted. He has agreed to chemotherapy. Current Visit: Yes Hospitalist: Subjective Interval history: Patient is a 56-year-old white man who is a heavy smoker and has COPD. He has had respiratory failure and has been on and off the ventilator. He has had hoarseness and stridor and has a upper tracheal lesion. He had a tracheostomy tube and biopsy of the neck mass. He has done well with a tracheostomy tube and is on trach collar now. His breathing is better and he is alert and talking a little. 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 He is breathing comfortably on trach collar. He is scheduled to undergo insertion of a PEG tube today. I discussed with the patient and his sister treatment with chemotherapy. He has agreed to such treatment and is eager to begin. Exam - Constitutional Vitals: Period Temp Pulse Resp BP Sys/Hart Pulse Ox Last 24 Hr 97.2 F-97.8 F 52-67 12-33 100-126/59-93 97-100 General appearance: no acute distress, other (Tracheostomy collar.) - Head Head exam: Present: normal inspection - Neck Neck exam: Present: other (Bandaged biopsy site.) - Respiratory Respiratory exam: Present: clear to auscultation bilaterally - Cardiovascular Cardiovascular exam: Present: regular rate and rhythm - GI/Abdominal GI/Abdominal exam: Present: normal bowel sounds, soft, other (Nontender with no palpable masses or hepatosplenomegaly.) - Extremities Exam Extremities exam: Present: normal inspection - Neurological Exam Neurological exam: Present: alert, oriented X3 - Psychiatric Psychiatric exam: Present: normal affect - Skin Skin exam: Present: normal color, warm, intact Results - Labs CBC & BMP: 04/01/17 05:30 04/01/17 05:30
[2017-04-01] MEDS: NICOTINE 21 MG/24 HR PATCH TRANSDERM SCH (08:58)
[2017-04-01] MEDS ORDERED: PROPOFOL 200 MG/20 ML VIAL IV ONE (09:05)
[2017-04-01] MEDS ORDERED: LIDOCAINE 1% 5 ML VIAL ONE (09:05)
--- NOTE | 2017-04-01 09:32 | Operative Note ---
Date of procedure: 04/01/17 Pre-op diagnosis: Squamous cell carcinoma head and neck, PEG needed Post-op diagnosis: other (Vocal cord mass thought to be a squamous cell carcinoma, proximal fungal esophagitis, distal LA class C erosive esophagitis, EG junction white plaque of unclear significance, possible ulcer versus carcinoma, diffuse gastritis, successful PEG tube placement) Procedure: PROCEDURE: Esophagogastroduodenoscopy (EGD) with percutaneous endoscopic gastrostomy (PEG) tube placement with cold biopsy for pathology REFERRING PHYSICIAN: Basilio Moise MD INDICATIONS: Squamous cell carcinoma of the head and neck, anemia, mild epigastric pain, this patient has a tracheostomy in place for anticipated chemotherapy and radiation versus referral to hospice. ENDOSCOPIST: Babak Murrieta MD ENDOSCOPE: Olympus Video 100 System upper endoscope ASA CLASS: 4 EXAM: CV: Regular rate and rhythm respiratory: Clear to ascultation abdominal: Positive bowel sounds MEDICATION: As per Anesthesia nursing protocol, see their notes PROCEDURE: After discussion of the potential risks and benefits of upper endoscopy and PEG placement, the informed consent was obtained. The patient was then placed in the left lateral decubitus position where sedation was achieved as noted above. Esophageal intubation was performed without difficulty , and the endoscope was advanced through the esophagus, stomach and duodenum. A slow withdrawal was then performed with retroflexion in the stomach for careful inspection of the incisura angularis, fundus and cardia. The scope was then returned to a neutral position and withdrawn through the esophagus. The patient tolerated the procedure well and without complication. BIOPSIES: Esophagus both mid and distal, gastric antrum/body PHOTOGRAPHS: Obtained FINDINGS: Hypopharynx and Larynx: There appear to be squamous cell carcinoma in front of the true vocal cords near the posterior commissure approximately 1 cm segment. This area was not biopsied. Esohagoscopy Upper and middle thirds: Fungal esophagitis was seen in this region, biopsies taken Lower third 10 cm of LA class C erosive esophagitis noted, biopsies taken Esophogastric junctions: White plaque as well as erosive gastritis and some granulation tissue noted at the EG junction, biopsies taken, but white plaque may been in association with NG tube trauma Gastroscopy: Cardia/Fundus: Mild retained fluid, mild gastritis Body: Mild diffuse gastritis, biopsies obtained Antrum and pylorus mild diffuse gastritis with a few erosions, biopsies obtained Duodenoscopy: Bulb mild duodenitis Second and third portions: Normal PEG Kit/tube size: Cook 20 Setswana PEG tube PEG Placement: After insufflation of the stomach with the prior procedure proper positioning was determined through transillumination and direct pressure with one to one transmission through the abdominal wall. The abdomen was sterilely prepped and draped, injected with 1% lidocaine and a 1 cm incision was cut in the external skin to accommodate the PEG tube. Using standard Ponsky "pull" technique, a catheter was inserted into the stomach (using a fluid filled syringe with back-suction to examine for interposed hollow organs) and a string was advanced into the stomach. This was snared through the scope, pulled through the mouth and tied to the PEG tube. The feeding tube was then pulled down into the stomach and out the abdominal wall, and a hub appropriately placed at the base to provide traction between internal hub and external skin. The tube was trimmed, dressed and a second look with the endoscope used to confirm position and function of the tube. The procedure was tolerated well and without complication. IMPRESSION: Vocal cord mass thought to be a squamous cell carcinoma, proximal fungal esophagitis, distal LA class C erosive esophagitis, EG junction white plaque of unclear significance, possible ulcer versus carcinoma, diffuse gastritis RECOMMENDATIONS: Maintain head of bed at 30 degrees Flush the PEG tube with 30 cc of water or saline every 4 hours Obtain (if not done already) nutritional consult to determine optimal feeding rate, continuous vs. bolus, and any hydration requirements necessary. Meds may be crushed and flushed through PEG in 12 hours, followed by 10 ml of water, as per the patient's attending physcian. Feeding though the tube may start at 12 hours with an initial rate of 30 ml/ hour advancing by 10 ml's every four hours until goal rate achieved. Hold tube feeds for residuals greater than 100 ml, checked each shift. Consider starting fluconazole if the patient has fungal esophagitis by biopsy Babak Murrieta MD Copy to: Basilio Moise MD Anesthesia: MAC Surgeon / Physician: Babak Murrieta Estimated blood loss: minimal Specimens: other (Proximal and distal esophageal biopsies with the GE junction plaque biopsy, gastric antrum/body) Condition: stable Disposition: post procedure unit (G.I. Suite) Results - Labs CBC & BMP: 04/01/17 05:30 04/01/17 05:30 Discharge Plan - Discharge Medications No Action No Known Home Medications [No Known Home Medications] - Follow Up or Referral - Forms/Instructions
--- NOTE | 2017-04-01 09:39 | Gastrointestinal Progress Note ---
Assessment and Plan (1) Squamous cell carcinoma of head and neck Status: Acute Assessment and plan: This is the cause for the underlying pharyngeal dysphagia. Was diagnosed on pathology that is returned again today as per Dr. Monterroso. CT scan seems to indicate that this is coming from the neck near the thyroid however is certainly possible this may be a esophageal squamous cell carcinoma given this patient's history of drinking and smoking. We should be able to determine if this is indeed the case one-way perform upper endoscopy and see if there is luminal involvement versus external compression. 03/31/17--The patient is due to get his PEG tube tomorrow. He remains in the ICU for the present time. 04/01/17--findings upper endoscopy did not see any involvement with the esophagus of the cancer. This is likely compressive phenomenon preventing the patient from eating. Also the following was seen: Vocal cord mass thought to be a squamous cell carcinoma, proximal fungal esophagitis, distal LA class C erosive esophagitis, EG junction white plaque of unclear significance, possible ulcer versus carcinoma, diffuse gastritis Current Visit: Yes (2) Pharyngeal dysphagia Status: Acute Assessment and plan: Patient does have pharyngeal dysphagia caused by presumed external compression of the esophagus. He is really not been able to eat for some weeks now, he is now status post tracheostomy placement and biopsy of the squamous cell carcinoma mass by Dr. Monterroso. We will be placing a PEG tube however this cannot be placed tomorrow due to the proximity of the last Lovenox dosing at 0937 this morning. We will plan to place this on Tuesday at 0930 to give him adequate time off of the medication to decrease his bleeding risk. We will have anesthesiology assess his risk prior to placement of the PEG tube. Again the esophagogastroduodenoscopy should be able to assess if this is a intraluminal esophageal cancer producing the squamous cell cancer. 03/31/17--Again we are awaiting upper endoscopy to see whether or not the patient 's difficulty with swallowing is due to intraluminal squamous cell carcinoma of the esophagus versus extraluminal compression from head and neck cancer. Upper endoscopy to occur about 9:30 to 11:30 tomorrow morning. 04/01/17--as noted above, will increase Protonix to twice a day, will await biopsy results before starting the patient on fluconazole. Current Visit: Yes (3) Anemia Status: Acute Assessment and plan: The patient does have mild ongoing anemia likely secondary to bone marrow suppression with his chronic disease/cancer. The current hematocrit is 34.4%. 03/31/17--CBC not rechecked this morning. This patient does have a significant leukocytosis in addition. 04/01/17--the patient likely has these changes due to GI losses with erosive esophagitis particularly. Current Visit: Yes (4) Pancreatitis Status: Acute Assessment and plan: No further evidence of pancreatitis this admission. Again the patient had stopped drinking some time ago and is already had his gallbladder taken out removing the sludge from potentially worsening this entity. Liver function tests look fine, no lipase level recheck was done this admission. 03/31/17--No further pancreatitis clinically this admission. Current Visit: No Qualifiers: Chronicity: chronic Pancreatitis type: unspecified pancreatitis type Qualified Code(s): K86.1 - Other chronic pancreatitis Gastroenterology - PN: Subj Interval history: PEG tube successfully placed, the patient did end up having both fungal and erosive esophagitis as well as some mild gastritis and duodenitis proximally. The squamous cell carcinoma could be seen arising out of the tracheal area near the posterior commissure and the true vocal cords. He did not appear to be coming from the esophagus. There was a esophageal plaque noted at the EG junction that appeared to be a compression ulcer biopsies are pending from this area as well. Exam (Progress Note) - Constitutional Vitals: Period Temp Pulse Resp BP Sys/Hart Pulse Ox Last 24 Hr 97.2 F-97.8 F 52-67 12-33 100-126/59-93 97-100 General appearance: mild distress - Head Head exam: Present: normocephalic - ENT ENT exam: Present: other (Tracheostomy noted to be in place) - Respiratory Respiratory exam: Present: clear to auscultation bilaterally. Absent: rales, rhonchi - Cardiovascular Cardiovascular exam: Present: regular rate and rhythm - GI/Abdominal GI/Abdominal exam: Present: normal bowel sounds, soft. Absent: distended, tenderness, rebound - Neurological Exam Neurological exam: Present: alert, altered (Unable to speak due to tracheostomy) - Psychiatric Psychiatric exam: Present: normal affect, normal mood - Skin Skin exam: Present: warm Results - Labs CBC & BMP: 04/01/17 05:30 04/01/17 05:30
--- NOTE | 2017-04-01 09:40 | Anesthesia Post-Op ---
Anesthesia Post OP - Post Ansesthetic Evaluation Patient seen in post op: Yes Resp: within normal limits CV: within normal limits Mental: within normal limits Temp: within normal limits [id number]: within normal limits Nausea and Vomiting: within normal limits Pain: within normal limits
[2017-04-01] MEDS: PHENYLEPHRINE DRIP 40 MG/250 ML PREMIX IV SCH (09:44)
--- NOTE | 2017-04-01 10:12 | Oncology Progress Note ---
Oncology Subjective PN Interval history: Patient with recent diagnosis head and neck cancer. Patient with tracheostomy and difficult to communicate with. I spoke with him yesterday and have spent 25 minutes speaking with his sister today. She states the patient is an alcoholic and heavy tobacco user. I think he has had neck swelling for many months now and failed to seek medical care in a timely manner. He was living in [place] with a 90-year-old aunt with dementia. He has been minimally ambulatory for several months and is obviously lost quite a bit of weight. He does not have any obvious metastatic disease but only have a chest x-ray for staging. At some point he would need scans of the chest and abdomen. There is still debate on whether or not he will be an acceptable candidate for treatment. I have also involved case management. The patient declines alf placement and may very well moving in with his sister who lives in [facility]. If this is the case then he can pursue treatment at [facility] in [place]. I will follow up on Tuesday. Exam - Constitutional Vitals: Period Temp Pulse Resp BP Sys/Hart Pulse Ox Last 24 Hr 97.2 F-97.8 F 52-67 12-33 100-126/59-93 97-100 Results - Labs CBC & BMP: 04/01/17 05:30 04/01/17 05:30
[2017-04-01] MEDS: guaiFENesin 200 MG/10 ML UDCUP PO SCH ×4 (10:35→21:38)
[2017-04-01] MEDS: MULTIVITAMIN (OCUVITE) TABLET PO SCH ×2 (10:35→21:38)
[2017-04-01] MEDS: THIAMINE 100 MG TABLET PO SCH (10:35)
[2017-04-01] MEDS: DESITIN 4OZ/NYSTATIN 15 GRAM MIXTURE PASTE TOP SCH ×2 (10:43→21:42)
[2017-04-01] MEDS: FOLIC ACID 1 MG TABLET PO SCH (21:38)
[2017-04-01] MEDS: PANTOPRAZOLE 40 MG VIAL IV SCH (21:39)
[2017-04-02] MEDS: ALBUTEROL/IPRATROPIUM 3 ML NEB RESP TX SCH ×4 (01:00→19:51)
[2017-04-02] MEDS: methylPREDNISolone SOD SUC 40 MG/1 ML VIAL IV SCH ×4 (01:06→23:38)
[2017-04-02] MEDS: CEFEPIME 1,000 MG in SODIUM CHLORIDE 0.9% 100 ML IV SCH ×3 (01:07→18:40)
[2017-04-02] MEDS: VANCOMYCIN INJ 1,250 MG in SODIUM CHLORIDE 0.9% 250 ML IV SCH ×2 (04:28→21:33)
[2017-04-02 05:51] LABS: Calcium 6.5 MG/DL (8.5-10.1); Magnesium 1.7 MG/DL (1.8-2.4); Osmolality,Calculated 278.3 MOS/KG (273-304); Phosphorous 1.7 MG/DL (2.5-4.9); Potassium 3.1 MMOL/L (3.5-5.1); Prealbumin 10.2 MG/DL (20-40)
[2017-04-02] MEDS: MORPHINE 2 MG/1 ML SYRINGE IV PRN ×2 (05:58→23:23)
[2017-04-02] MEDS ORDERED: DOCUSATE SODIUM 100 MG/10 ML UDCUP PO PRN (06:55)
[2017-04-02] MEDS ORDERED: MAGNESIUM SULF RIDER 2 GM in PREMIX 1 EACH IV PRN (07:02)
[2017-04-02] MEDS ORDERED: MAGNESIUM SULF RIDER 4 GM in PREMIX 1 EACH IV PRN (07:02)
[2017-04-02] MEDS ORDERED: POTASSIUM CHLORIDE RIDER 10 MEQ in PREMIX 1 EACH IV PRN (07:02)
[2017-04-02] MEDS: POTASSIUM CHLORIDE RIDER 20 MEQ in PREMIX 1 EACH IV PRN ×2 (07:25→08:17)
--- NOTE | 2017-04-02 07:25 | Pulmonology Progress Note ---
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 He does speak a little with a speaking valve in place. He is taking some ice chips and liquids by mouth. Plans are being made for treatment. Question as to where the patient will be living after he leaves the hospital. If he goes to [place] and plans will be made for treatment later. He needs metastatic survey at some point. Exam (Progress Note) - Constitutional Vitals: Period Temp Pulse Resp BP Sys/Hart Pulse Ox Last 24 Hr 97.4 F-97.9 F 54-93 12-27 106-138/67-96 92-100 Exam: He is alert seems oriented. Vital signs normal. Pupils react to light. Oral hygiene is poor. Tracheostomy in place. Speaking valve in place and his voice is quite breathy. Chest reveals a few rhonchi equal breath sounds. Heart normal rate rhythm no murmurs. Abdomen soft nontender no masses. Extremities no clubbing cyanosis edema. Calves nontender. Results - Labs CBC & BMP: 04/01/17 05:30 04/02/17 04:10 Lab Results: I have reviewed the past 24 hour labs Assessment and Plan (1) History of alcohol abuse Status: Acute Assessment and plan: No signs of withdrawal. Current Visit: Yes (2) COPD with acute exacerbation Status: Acute Assessment and plan: No active wheezing. Continuing bronchodilators. 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 The exact extent is not known at this point. Needs further evaluation and treatment Current Visit: Yes
[2017-04-02] MEDS: NICOTINE 21 MG/24 HR PATCH TRANSDERM SCH (08:11)
[2017-04-02] MEDS: ENOXAPARIN 40 MG/0.4 ML SYRINGE SUBCUT SCH (08:11)
[2017-04-02] MEDS: PANTOPRAZOLE 40 MG VIAL IV SCH ×2 (08:11→21:19)
[2017-04-02] MEDS: guaiFENesin 200 MG/10 ML UDCUP PO SCH ×4 (08:12→21:19)
[2017-04-02] MEDS: THIAMINE 100 MG TABLET PO SCH (08:12)
[2017-04-02] MEDS: MULTIVITAMIN (OCUVITE) TABLET PO SCH ×2 (08:12→21:19)
[2017-04-02] MEDS: SODIUM CHLORIDE 0.9% 1,000 ML IV SCH ×2 (09:18→21:24)
--- NOTE | 2017-04-02 09:21 | Hospitalist Progress Note ---
Assessment and Plan (1) Acute renal failure Status: Acute Assessment and plan: Today his BUN is 13 and creatinine 0.20. He continues to receive intravenous normal saline. His potassium today is 3.1. He continues to receive potassium chloride supplementation. Current Visit: No (2) Acute exacerbation of chronic obstructive airways disease Status: Acute Assessment and plan: He is stable status post tracheostomy. He continues to be followed by pulmonary. Current Visit: Yes (3) Acute respiratory failure Status: Resolved Assessment and plan: See above. He is significantly improved. He appears comfortable on the tracheostomy collar. Current Visit: Yes Qualifiers: Respiratory failure complication: hypoxia Qualified Code(s): J96.01 - Acute respiratory failure with hypoxia (4) Leukocytosis Status: Acute Assessment and plan: His white blood count has decreased from 35,600 to 26,300. I will continue to follow on a daily basis. He is presently on intravenous antibiotics including vancomycin. Current Visit: Yes (5) Neck mass Status: Acute Assessment and plan: Biopsy pathology showed squammous cell Ca. Oncology has been consulted. He has agreed to chemotherapy. He is to undergo CT scans today of the chest, abdomen, and pelvis as part of his metastatic workup. Current Visit: Yes Hospitalist: Subjective Interval history: He is doing well today. He is being followed by pulmonary and oncology. He will undergo CT scans of the chest, abdomen, and pelvis today as part of his metastatic workup. I will transfer him to a medical surgical bed today. Exam - Constitutional Vitals: Period Temp Pulse Resp BP Sys/Hart Pulse Ox Last 24 Hr 97.4 F-97.9 F 54-93 12-27 106-138/67-96 92-100 General appearance: no acute distress - Head Head exam: Present: normal inspection - Neck Neck exam: Present: other (Ended incision of left neck. Tracheostomy collar.) - Respiratory Respiratory exam: Present: clear to auscultation bilaterally - Cardiovascular Cardiovascular exam: Present: regular rate and rhythm - GI/Abdominal GI/Abdominal exam: Present: normal bowel sounds, soft, other (Nontender with no palpable masses or hepatosplenomegaly.) - Extremities Exam Extremities exam: Present: normal inspection - Neurological Exam Neurological exam: Present: alert, oriented X3 - Skin Skin exam: Present: normal color, warm, intact Results - Labs CBC & BMP: 04/01/17 05:30 04/02/17 04:10
[2017-04-02 09:38] LABS: Basophils % 0.2 % (0.0-0.8); Hematocrit 35.7 VOL% (42.0-52.0); Hemoglobin 12.6 GM/DL (14.0-18.0); Immature Granulocytes % 1.6 %; Immature Granulocytes Absolute 0.37 #; Lymphocytes # 0.4 10*3/uL (1.4-4.0); Lymphocytes % 1.7 % (21.2-54.2); Mean Corpuscular HGB Conc 35.3 GM/DL (32-36); Mean Corpuscular Hemoglobin 34 PG (27-34); Mean Corpuscular Volume 97.3 FL (87-102); Mean Platelet Volume 10.5 FL (9.6-12.0); Monocytes # 0.5 10*3/uL (0.11-0.8); Monocytes % 2.3 % (1.7-12.7); Neutrophils # 21.7 10*3/uL (1.4-7.4); Neutrophils % 94.2 % (38.7-73.9); Platelet Count 167 T/CUMM (130-400); Red Blood Count 3.67 MC/CUMM (3.8-5.5); Red Cell Distribution Width 13.2 % (9.3-17.3)
[2017-04-02 10:09] LABS: Band Neutrophils 4 % (0-10); Hypochromasia 1+; Lymphocytes 1 % (20-55); Platelet Estimate Normal; Segmented Neutrophils 94 % (50-85); Total Cells Counted 100
[2017-04-02 10:14] LABS: Calcium 7.7 MG/DL (8.5-10.1); Osmolality,Calculated 273.1 MOS/KG (273-304); Potassium 4.6 MMOL/L (3.5-5.1)
[2017-04-02] MEDS: DESITIN 4OZ/NYSTATIN 15 GRAM MIXTURE PASTE TOP SCH ×2 (10:25→21:33)
[2017-04-02] MEDS: INSULIN REGULAR 100 UNIT/ML SUBCUT SCH ×2 (11:59→18:40)
[2017-04-02] MEDS ORDERED: VANCOMYCIN INJ 1,000 MG in SODIUM CHLORIDE 0.9% 250 ML IV SCH (12:00)
--- NOTE | 2017-04-02 14:30 | CT Report ---
EXAM: CT chest, abdomen, and pelvis without contrast DATE: 04/02/2017 COMPARISON: CT soft tissue neck 03/28/2017, CT abdomen pelvis 12/21/2015 REASON: Laryngeal cancer TECHNIQUE: Axial images of the chest, abdomen and pelvis were obtained without the use of IV contrast. No oral contrast was administered. Sagittal and coronal reformatted images were provided. Total DLP was 516.3 mGy*cm. 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 The mass cannot be from the left lobe of the thyroid gland. Interval development of subcutaneous emphysema and pneumomediastinum. The heart is normal in size with coronary artery calcifications. Right arm PICC line. No significantly enlarged mediastinal or hilar nodes are identified. Small bilateral pleural effusions with diffuse parenchymal findings in the adjacent lower lobes. Probable chronic scarring at the lung apices with minimal subpleural nodularity. Minimal bullous emphysema. The liver is normal in size with decreased fatty infiltration. Small hypodensities are noted in the liver with prior cholecystectomy and no dilated ducts. The spleen and and kidneys have not changed significantly in appearance. However there are multiple diffuse masslike densities throughout the pancreas. The largest finding measures 70 x 66 x 56 mm at the level of the tail of the pancreas. Multiple adjacent enlarged lymph nodes are identified with extension into the kamaljit hepatis, periaortic, pericaval location. Some of the finding are difficult to separate from the adrenal glands. PEG tube in the stomach with the proximal small bowel slightly larger in size. Stretching of the sigmoid colon with associated decrease diminished caliber. No evidence of diverticulitis, appendicitis, or free air. Minimal abdominal ascites and more pronounced pelvic ascites with thickening of the mesentery. The prostate measures 47 mm in diameter and indents the base of the urinary bladder. There is air in the urinary bladder with minimal bladder wall thickening. Diffuse fluid in the soft tissues. Degenerative changes are noted. IMPRESSION: Interval insertion of tracheostomy tube, right arm PICC line, and gastrostomy tube. 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 However the patient has pulmonary, pancreatic, hepatic masses and adrenal masses with associated lymphadenopathy which can be seen with metastatic disease, lymphoma, etc. The findings are most pronounced throughout the pancreas and peripancreatic location. Subcutaneous emphysema with pneumomediastinum, coronary artery calcifications, small pleural effusions, atelectasis/infiltration especially in the lower lobes and minimal bullous emphysema. Limited evaluation of the bowel without contrast. Minimal abdominal and more prominent pelvic ascites. Air in the urinary bladder with minimal wall thickening and indentation of the base by the enlarged prostate. Anasarca. The CT exam was performed using one or more of the following dose reduction techniques: Automated exposure control and adjustment of the mA and/or kV according to patient size. PROCEDURE INTERPRETED AT [facility] DEPARTMENT OF RADIOLOGY Final Report Signed by: Dr. Carmita Barfield
--- NOTE | 2017-04-02 15:41 | Gastrointestinal Progress Note ---
Assessment and Plan - Time spent with patient Time spent with patient: Greater than 30 minutes (1) Unable to eat Status: Acute Current Visit: Yes (2) Esophagitis Status: Acute Current Visit: Yes (3) Other specified counseling Status: Acute Current Visit: Yes Exam (Progress Note) - Constitutional Vitals: Period Temp Pulse Resp BP Sys/Hart Pulse Ox Last 24 Hr 97.6 F-98.0 F 57-93 12-27 100-138/68-96 92-100 Results - Labs CBC & BMP: 04/02/17 09:26 04/02/17 09:26 Note Addendum: PLEASE NOTE -- automatic citation of patient information is unavoidable in this electronic note. I have made a reasonable effort to review the information cited , but it is not a part of my evaluation, impression, or recommendation unless specifically discussed in the dictated text that follows. As well, voice recognition software was used in the creation of this clinical note. Reasonable effort was made to identify and correct gross errors. Despite proofreading, errors in acetylene torch burner may be present, including nonsense verbiage at times. If you encounter such an error, please contact me at for discussion and correction. -- Leonor Chief complaint: dysphagia Subjective: patient is a 57-year-old male seen for follow-up of PEG placement in the setting of dysphagia due to head and neck cancer. The patient underwent upper endoscopy with PEG yesterday with Dr. Murrieta. Findings included both infectious and erosive esophagitis as well as mild gastritis. Biopsy results are not yet available. The nursing staff has been flushing the PEG tube without difficulty and the patient has been tolerating 2 feet without difficulty. They report no sign of complication with the stoma or the appliance. The patient reports feeling comfortable with no discomfort at the PEG site. Medications: Tylenol, albuterol, Duoneb, cefepime, Klonopin, Colace, Lovenox, folic acid, Robitussin, heparin, Humulin, magnesium sulfate, Solu-Medrol, Nicoderm, Zofran, Protonix, potassium chloride, sodium chloride infusion, thiamine, trazodone, vancomycin, Geodon Review of Symptoms: 12 point review of symptoms was negative except as noted above Physical examination: Vital Signs: Current vital signs reviewed. General Appearance: lying in bed. Comfortable. No apparent distress. Tracheostomy tube in place. Head: Normocephalic. Eyes: no scleral icterus. No scleral injection. No conjunctival pallor. Oral Cavity: Odor of breath was normal. No drooling was observed. Lips showed no abnormalities. Lungs: Respiration rhythm and depth was normal. Cardiovascular: Heart rate and rhythm were normal. Abdomen: abdomen was not distended. Abdominal auscultation revealed no abnormalities. Ascites was not discovered. Abdominal palpation revealed no tenderness and no hepatosplenomegaly. The PEG site was clean and dry with adequate axial play and rotational freedom in the stoma. Absorbent dressing was in place. Musculoskeletal System: musculoskeletal system was grossly normal. Neurological: level of consciousness was normal. Speech was low volume due to tracheostomy. No coordination/cerebellum abnormalities were noted. Skin: Gen. appearance was normal. Color and pigmentation were normal. No skin lesions were appreciated. Laboratory: white blood count 23, hemoglobin 12.6, platelets 167, INR 1.1 Radiology: CT of the chest, abdomen, pelvis, April 02, 2017 -- pulmonary, pancreatic, hepatic, adrenal masses with associated lymphadenopathy consistent with metastatic disease; subcutaneous emphysema with pneumonia mediastinum; abdominal and pelvic ascites; anasarca; other findings Impressions: 1. Unable to eat -- the PEG site and appliance are without evidence of complication. I recommend proceeding with nutritional supplementation, hydration , and medication administration as indicated. It is important to recall that use of a PEG does not reduce the risk of aspiration at all and aspiration precautions should continue. 2. Multifocal esophagitis -- the patient had evidence of both infectious and erosive esophagitis on endoscopy. Pathology specimens are pending. He will follow up with further recommendations once this data is available. In the interim, continue proton pump inhibitor is reasonable. 3. Other specified counseling -- Patient seen for greater than 30 minutes. Greater than 50% of this time was spent counseling regarding differential diagnosis, likely diagnosis,, diagnostic and therapeutic options, risks, benefits, and alternatives to procedures and medications, informed consent, and plan of care generally. Patient has expressed understanding and wishes to proceed. Recommendations: -- okay to use PEG for nutrition supplement, hydration, and medication administration as indicated -- continue proton pump inhibitor -- maintain aspiration precautions -- follow-up pathology results when available -- we will continue to follow with you
[2017-04-02] MEDS: FOLIC ACID 1 MG TABLET PO SCH (21:19)
[2017-04-02] MEDS: clonazePAM 0.5 MG TABLET PO PRN (21:19)
[2017-04-03] MEDS: ALBUTEROL/IPRATROPIUM 3 ML NEB RESP TX SCH ×4 (01:22→19:38)
[2017-04-03] MEDS: INSULIN REGULAR 100 UNIT/ML SUBCUT SCH ×4 (02:27→18:44)
[2017-04-03] MEDS: CEFEPIME 1,000 MG in SODIUM CHLORIDE 0.9% 100 ML IV SCH ×3 (02:35→18:15)
[2017-04-03] MEDS: VANCOMYCIN INJ 1,250 MG in SODIUM CHLORIDE 0.9% 250 ML IV SCH ×3 (05:34→21:03)
[2017-04-03] MEDS: SODIUM CHLORIDE 0.9% 1,000 ML IV SCH (09:43)
[2017-04-03] MEDS: methylPREDNISolone SOD SUC 40 MG/1 ML VIAL IV SCH ×2 (09:44→16:36)
[2017-04-03] MEDS: PANTOPRAZOLE 40 MG VIAL IV SCH ×2 (09:47→21:01)
[2017-04-03] MEDS: NICOTINE 21 MG/24 HR PATCH TRANSDERM SCH (09:49)
[2017-04-03] MEDS: ENOXAPARIN 40 MG/0.4 ML SYRINGE SUBCUT SCH (09:51)
[2017-04-03] MEDS: MULTIVITAMIN (OCUVITE) TABLET PO SCH ×2 (09:52→21:01)
[2017-04-03] MEDS: THIAMINE 100 MG TABLET PO SCH (09:52)
[2017-04-03] MEDS: guaiFENesin 200 MG/10 ML UDCUP PO SCH ×4 (09:52→21:01)
[2017-04-03] MEDS: DESITIN 4OZ/NYSTATIN 15 GRAM MIXTURE PASTE TOP SCH ×2 (09:53→22:49)
--- NOTE | 2017-04-03 09:54 | Gastrointestinal Progress Note ---
Assessment and Plan (1) Unable to eat Status: Acute Current Visit: Yes (2) Esophagitis Status: Acute Current Visit: Yes (3) Head and neck cancer Status: Acute Current Visit: Yes (4) Other specified counseling Status: Acute Current Visit: Yes Exam (Progress Note) - Constitutional Vitals: Period Temp Pulse Resp BP Sys/Hart Pulse Ox Last 24 Hr 97.2 F-98.8 F 66-82 15-22 99-129/65-80 92-100 Results - Labs CBC & BMP: 04/02/17 09:26 04/02/17 09:26 Note Addendum: PLEASE NOTE -- automatic citation of patient information is unavoidable in this electronic note. I have made a reasonable effort to review the information cited , but it is not a part of my evaluation, impression, or recommendation unless specifically discussed in the dictated text that follows. As well, voice recognition software was used in the creation of this clinical note. Reasonable effort was made to identify and correct gross errors. Despite proofreading, errors in terminal worker may be present, including nonsense verbiage at times. If you encounter such an error, please contact me at for discussion and correction. -- Leonor Chief complaint: dysphagia Subjective: patient is a 57-year-old male seen for follow-up of PEG placement in the setting of dysphagia due to head and neck cancer. The patient reports feeling comfortable with no discomfort at the PEG site. He is able to sip water and swallow that without aspiration or other difficulty. He would like to try advancing his oral diet if possible. Medications: Tylenol, albuterol, Duoneb, cefepime, Klonopin, Colace, Lovenox, folic acid, Robitussin, heparin, Humulin, magnesium sulfate, Solu-Medrol, Nicoderm, Zofran, Protonix, potassium chloride, sodium chloride infusion, thiamine, trazodone, vancomycin, Geodon Review of Symptoms: 12 point review of symptoms was negative except as noted above Physical examination: Vital Signs: Current vital signs reviewed. General Appearance: lying in bed. Comfortable. No apparent distress. Tracheostomy tube in place. Head: Normocephalic. Eyes: no scleral icterus. No scleral injection. No conjunctival pallor. Oral Cavity: Odor of breath was normal. No drooling was observed. Lips showed no abnormalities. Lungs: Respiration rhythm and depth was normal. Cardiovascular: Heart rate and rhythm were normal. Abdomen: abdomen was not distended. Ascites was not discovered. Abdominal palpation revealed no tenderness and no hepatosplenomegaly. The PEG site was clean and dry with adequate axial play and rotational freedom in the stoma. Absorbent dressing was in place. Musculoskeletal System: musculoskeletal system was grossly normal. Neurological: level of consciousness was normal. Speech was low volume due to tracheostomy. No coordination/cerebellum abnormalities were noted. Skin: Gen. appearance was normal. Color and pigmentation were normal. No skin lesions were appreciated. Laboratory: white blood count 23, hemoglobin 12.6, platelets 167, INR 1.1 Radiology: reviewed Impressions: 1. Unable to eat -- the PEG site and appliance are without evidence of complication. I recommend continued nutritional supplementation, hydration, and medication administration as indicated. As previously mentioned, it is important to recall that use of a PEG does not reduce the risk of aspiration at all and aspiration precautions should continue. As the patient would like to continue to try oral nutrition, consider a repeat bedside swallowing study to determine whether he is able to protect his airway and for further recommendations regarding the safety of oral nutrition. 2. Multifocal esophagitis -- the patient had evidence of both infectious and erosive esophagitis on endoscopy. Pathology specimens are pending. He will follow up with further recommendations once this data is available. In the interim, continue proton pump inhibitor is reasonable. 3. Head and neck cancer -- managed per primary team. 4. Other specified counseling -- Patient seen for less than 30 minutes. Greater than 50% of this time was spent counseling regarding differential diagnosis, likely diagnosis,, diagnostic and therapeutic options, risks, benefits, and alternatives to procedures and medications, informed consent, and plan of care generally. Patient has expressed understanding and wishes to proceed. Recommendations: -- continue proton pump inhibitor -- maintain aspiration precautions -- consider repeat swallowing study to determine whether oral nutrition is feasible -- follow-up pathology results when available -- we will continue to follow with you. Dr. Murrieta will resume G.I. care for this patient tomorrow
--- NOTE | 2017-04-03 10:02 | Pulmonology Progress Note ---
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 He does speak a little with a speaking valve in place. He is taking some ice chips and liquids by mouth. Plans are being made for treatment. Question as to where the patient will be living after he leaves the hospital. If he goes to [place] and plans will be made for treatment later. He needs metastatic survey at some point. 04/03/2017 patient a little more alert now. Apparently was quite weak yesterday when they tried to get him up. Sleeping pills make him have a bit of a hangover. Exam (Progress Note) - Constitutional Vitals: Period Temp Pulse Resp BP Sys/Hart Pulse Ox Last 24 Hr 97.2 F-98.8 F 66-82 15-22 99-129/65-80 92-100 Exam: He is alert seems oriented. Vital signs normal. Pupils react to light. Oral hygiene is poor. Tracheostomy in place. Speaking valve in place and his voice is quite breathy. Chest reveals a few rhonchi equal breath sounds. Heart normal rate rhythm no murmurs. Abdomen soft nontender no masses. Extremities no clubbing cyanosis edema. Calves nontender. Little change from yesterday, except more alert Results - Labs CBC & BMP: 04/02/17 09:26 04/02/17 09:26 Lab Results: I have reviewed the past 24 hour labs Assessment and Plan (1) History of alcohol abuse Status: Acute Assessment and plan: No signs of withdrawal. Current Visit: Yes (2) COPD with acute exacerbation Status: Acute Assessment and plan: No active wheezing. Continuing bronchodilators. 04/03/2017 continuing bronchodilators. Minimal rhonchi. 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 The exact extent is not known at this point. Needs further evaluation and treatment 04/03/2017 ENT and oncology to address. Has tracheostomy. Current Visit: Yes
--- NOTE | 2017-04-03 11:31 | Hospitalist Progress Note ---
Assessment and Plan (1) Acute renal failure Status: Acute Assessment and plan: Today his BUN is 14and creatinine 0.30. He continues to receive intravenous normal saline. His potassium today is 3.1. He continues to receive potassium chloride supplementation. Current Visit: No (2) Acute exacerbation of chronic obstructive airways disease Status: Acute Assessment and plan: He is stable status post tracheostomy. He continues to be followed by pulmonary. Current Visit: Yes (3) Acute respiratory failure Status: Resolved Assessment and plan: See above. He is significantly improved. He appears comfortable on the tracheostomy collar. Current Visit: Yes Qualifiers: Respiratory failure complication: hypoxia Qualified Code(s): J96.01 - Acute respiratory failure with hypoxia (4) Leukocytosis Status: Acute Assessment and plan: His white blood count has decreased from 35,600 to 23,000 I will continue to follow on a daily basis. He is presently on intravenous antibiotics including vancomycin. Current Visit: Yes (5) Neck mass Status: Acute Assessment and plan: Biopsy pathology showed squammous cell Ca. Oncology has been consulted. He has agreed to chemotherapy. As indicated above, the CT scans demonstrated evidence of diffuse metastases disease of the lungs, liver, pancreas, and adrenal glands. He will be discharged tomorrow after arrangements have been made for follow-up at [facility]. Current Visit: Yes Hospitalist: Subjective Interval history: He is comfortable with no complaints today. He underwent CT scanning yesterday demonstrating evidence of diffuse metastases involving the lungs, liver, pancreas, and adrenal glands. He will be seen tomorrow by oncology in follow- up. He will be discharged after arrangements have been made for his follow-up at [facility]. Exam - Constitutional Vitals: Period Temp Pulse Resp BP Sys/Hart Pulse Ox Last 24 Hr 97.2 F-98.8 F 66-82 16-22 99-125/65-80 92-100 General appearance: mild distress, other (Tracheostomy collar.) - Head Head exam: Present: normal inspection - Neck Neck exam: Present: normal inspection - Respiratory Respiratory exam: Present: clear to auscultation bilaterally - Cardiovascular Cardiovascular exam: Present: regular rate and rhythm - GI/Abdominal GI/Abdominal exam: Present: normal bowel sounds, soft - Extremities Exam Extremities exam: Present: normal inspection - Neurological Exam Neurological exam: Present: alert, oriented X3 - Psychiatric Psychiatric exam: Present: normal affect - Skin Skin exam: Present: normal color, warm, intact Results - Labs CBC & BMP: 04/02/17 09:26 04/02/17 09:26
--- NOTE | 2017-04-03 14:27 | Progress Note ---
Assessment and Plan (1) Tracheostomy malfunction Status: Acute Assessment and plan: Called to the bedside for emergent trach dislodgment and a fresh trach tracheostomy was able to be replaced at bedside through previous tracheostomy hole using a flexible endoscope for verification of track and advancement of trach over the tract to the appropriate depth. This resolved the patient's stridor and difficulty breathing. The trach was then clasped into place at 12 cm on the variable hand to the Bivona trach. Patient tolerated the whole procedure well. Nursing staff was instructed along with respiratory therapy on how to use the Bivona and its differences from the baseline Shiley trach. Bedside tracheoscopy and trach replacement/initial trach change of a fresh trach was performed in this procedure and tolerated well. Current Visit: Yes (2) Tracheostomy dependent Status: Acute Current Visit: Yes (3) Squamous cell carcinoma of neck Status: Acute Assessment and plan: Pathology confirms squamous cell carcinoma clinical and surgical staging is currently T4 N3 M? 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 I discussed in detail yesterday after surgery and this morning with him and his family in regards to different possible treatment options. I discussed to attempt a curative treatment it would likely need chemotherapy, radiotherapy, surgical therapy. The patient did not desire to proceed with an aggressive curative treatment plan. I discussed with the patient other possible/probable palliative treatment options including chemotherapy plus or minus radiotherapy in which the patient also did not want to undergo palliative treatment. I additionally discussed hospice care that he was interested in. I will try to set up a hospice consult for him. Additionally I am unsure whether oncology has or has not been consulted if so I defer to them for any additional possible treatment options that may or may not be available. Additionally I will also ask for a Passy-Clayton valve replacement the patient's trach so that he can use his voice that is currently still functional. I will continue to follow this patient intermittently throughout his stay. Current Visit: Yes (4) Ventilator dependence Status: Acute Assessment and plan: I will tentatively put him on for a trach tomorrow in the OR. Will obtain consent and hold anticoagulants and any tube feedings. Additionally I will obtain a CT of the neck with contrast to verify any abnormal anatomy and we will possibly do an open biopsy if there is any grossly obvious abnormal anatomy. His white count is extremely high and we may request a peripheral smear I am not sure this will clarify as to why but it seems odd that his white count is so high in light of his IV antibiotic therapy and the length of time that he is been treated. Thank you very much for notifying me of this and we will put him on the schedule for tomorrow. Current Visit: Yes (5) Stridor Status: Acute Assessment and plan: Bedside laryngoscopy was suboptimal because of ET tube but I saw no gross lesions that would cause the patient stridor. I would recommend re-extubation preferably tomorrow/Tuesday as I will be in the hospital and could potentially walk over and evaluate if he was having any problem at the time. If he continues to have problem we may have to discuss alternative recommendations such as immediate placement on CPAP/BiPAP or potentially tracheostomy. I will continue to follow this patient intermittently. Thank you very much for this consultation. 03/22/2017 The patient tolerated extubation well with no evidence of stridor for the first 30 minutes after extubation feel the patient will not need any intervention or more aggressive management of the airway. I will sign off on this case but I think you for consulting me if there are any additional questions or concerns please do not hesitate to notify me. Current Visit: Yes (6) Acute exacerbation of chronic obstructive airways disease Status: Acute Current Visit: Yes (7) Acute respiratory failure Status: Resolved Current Visit: Yes Qualifiers: Respiratory failure complication: hypoxia Qualified Code(s): J96.01 - Acute respiratory failure with hypoxia (8) Smoker Status: Chronic Current Visit: Yes (9) Goiter Status: Acute Current Visit: Yes Family Medicine PN Sub Interval history: Called emergently to the patient's bedside for trach malfunction. The patient was coughing and the tracheostomy tube was pushed out farther than it previously was. The nurses called ENT to notify them. He was able to breathe that was having significantly more problems he was not in respiratory distress but was coughing a lot and there was more stridor with his breathing additionally breathing was through the mouth and nose and not purely through the trach. ENT was called to emergently assess the patient and nursing brought the laryngoscope/tracheoscope to the bedside for evaluation and treatment. Exam (Progress Note) - Constitutional Vitals: Period Temp Pulse Resp BP Sys/Hart Pulse Ox Last 24 Hr 97.2 F-98.8 F 66-91 16-22 99-125/65-80 92-100 General appearance: normal weight, mild distress (Resolved with the replacement of the trach) - Head Head exam: Present: normal inspection, normocephalic - Eye Eye exam: Present: EOMI Pupils: Present: PETE - ENT ENT exam: Present: normal exam, normal oropharynx, other (Baseline normal) - Neck Neck exam: Present: normal inspection, lymphadenopathy, other (Midline trach in place and patent bedside tracheoscopy performed where the trach was extruded from tracheostomy flexible laryngoscope was advanced through the tracheostomy to 1 cm above the level of the fabrice and the flexible Bivona trach was then able to be advanced and replaced into the trach. The Bivona trach was then clasped into place at 12 cm which was approximately 1 cm above the fabrice. There are no evidences of masses lesions or gross ulcerations of the lower trachea or bronchi bilaterally. The presumed reason for trach expulsion during coughing was most likely that the class was not on the variable flange of the Bivona. This is since been resolved.) - Respiratory Respiratory exam: Present: other (Improved respiration stridor resolved once trach was replaced.) - GI/Abdominal GI/Abdominal exam: Present: soft - Neurological Exam Neurological exam: Present: alert, oriented X3, CN II-XII intact - Psychiatric Psychiatric exam: Present: normal affect, normal mood - Skin Skin exam: Present: normal color, warm Results - Labs CBC & BMP: 04/02/17 09:26 04/02/17 09:26 Lab Results: I have reviewed the past 24 hour labs
[2017-04-03] MEDS: ACETAMINOPHEN 325 MG TABLET PO PRN ×2 (16:34→22:49)
[2017-04-03] MEDS: FOLIC ACID 1 MG TABLET PO SCH (21:01)
[2017-04-03] MEDS: traZODone 50 MG TABLET PO PRN (21:01)
[2017-04-04] MEDS: methylPREDNISolone SOD SUC 40 MG/1 ML VIAL IV SCH ×3 (00:14→16:30)
[2017-04-04] MEDS: INSULIN REGULAR 100 UNIT/ML SUBCUT SCH ×4 (00:32→18:28)
[2017-04-04] MEDS: ALBUTEROL/IPRATROPIUM 3 ML NEB RESP TX SCH ×4 (01:15→19:15)
[2017-04-04] MEDS: CEFEPIME 1,000 MG in SODIUM CHLORIDE 0.9% 100 ML IV SCH ×3 (02:35→17:42)
[2017-04-04] MEDS: VANCOMYCIN INJ 1,250 MG in SODIUM CHLORIDE 0.9% 250 ML IV SCH ×2 (05:10→15:34)
[2017-04-04] MEDS: ACETAMINOPHEN 325 MG TABLET PO PRN ×3 (05:21→20:49)
[2017-04-04 07:37] LABS: Magnesium 2.1 MG/DL (1.8-2.4); Phosphorous 2.4 MG/DL (2.5-4.9); Prealbumin 16.2 MG/DL (20-40)
[2017-04-04] MEDS: THIAMINE 100 MG TABLET PO SCH (08:18)
[2017-04-04] MEDS: MULTIVITAMIN (OCUVITE) TABLET PO SCH ×2 (08:18→20:50)
[2017-04-04] MEDS: guaiFENesin 200 MG/10 ML UDCUP PO SCH ×4 (08:18→20:49)
[2017-04-04] MEDS: PANTOPRAZOLE 40 MG VIAL IV SCH ×2 (08:20→20:50)
[2017-04-04] MEDS: ENOXAPARIN 40 MG/0.4 ML SYRINGE SUBCUT SCH (08:20)
[2017-04-04] MEDS: NICOTINE 21 MG/24 HR PATCH TRANSDERM SCH (08:21)
[2017-04-04] MEDS: DESITIN 4OZ/NYSTATIN 15 GRAM MIXTURE PASTE TOP SCH ×2 (08:48→22:50)
[2017-04-04 08:51] LABS: Calcium 7.7 MG/DL (8.5-10.1); Osmolality,Calculated 276.4 MOS/KG (273-304); Potassium 3.8 MMOL/L (3.5-5.1)
--- NOTE | 2017-04-04 11:17 | Hospitalist Progress Note ---
Assessment and Plan (1) Acute renal failure Status: Acute Assessment and plan: Resolved. Current Visit: No (2) Acute exacerbation of chronic obstructive airways disease Status: Acute Assessment and plan: He is stable status post tracheostomy. He continues to be followed by pulmonary. Current Visit: Yes (3) Acute respiratory failure Status: Resolved Assessment and plan: See above. Resolved. Current Visit: Yes Qualifiers: Respiratory failure complication: hypoxia Qualified Code(s): J96.01 - Acute respiratory failure with hypoxia (4) Leukocytosis Status: Acute Assessment and plan: Resolved. Current Visit: Yes (5) Neck mass Status: Acute Assessment and plan: Biopsy pathology showed squammous cell Ca. Oncology has been consulted. He has agreed to chemotherapy. As indicated above, the CT scans demonstrated evidence of diffuse metastases disease of the lungs, liver, pancreas, and adrenal glands. He will be discharged once arrangements for hospice care in [place] have been made. Current Visit: Yes Hospitalist: Subjective Interval history: Events of yesterday are noted. He is now stable status post tracheostomy. He has declined any further treatment. His discharge is pending arrangements for hospice care. Exam - Constitutional Vitals: Period Temp Pulse Resp BP Sys/Hart Pulse Ox Last 24 Hr 97.1 F-98.8 F 68-96 16-20 102-118/66-82 92-99 General appearance: no acute distress, other (Tracheostomy.) - Head Head exam: Present: normal inspection - Neck Neck exam: Present: normal inspection - Respiratory Respiratory exam: Present: clear to auscultation bilaterally - Cardiovascular Cardiovascular exam: Present: regular rate and rhythm - GI/Abdominal GI/Abdominal exam: Present: normal bowel sounds, soft - Extremities Exam Extremities exam: Present: normal inspection - Neurological Exam Neurological exam: Present: alert, oriented X3 - Psychiatric Psychiatric exam: Present: normal affect, normal mood - Skin Skin exam: Present: normal color, warm, intact Results - Labs CBC & BMP: 04/02/17 09:26 04/04/17 04:38
[2017-04-04 12:39] LABS: Apearance,Urine CLEAR (Clear); Bilirubin,Urine Negative (Negative); Blood, Urine Negative (Negative); Glucose,Urine (UA) Negative (Negative); Ketones,Urine Negative (Negative); Mucus,Urine Occasional /LPF (Occasional); Nitrite,Urine Negative (Negative); Protein,Urine Negative; Urine Color Straw (Yellow); Urine Specific Gravity 1.003 (1.001-1.035); Urine Urobilinogen < 2.0 EU/DL (0.2-1.0)
--- NOTE | 2017-04-04 12:44 | Pulmonology Progress Note ---
Pulmonary - PN: Subj Interval history: Patient is a 56-year-old white man who is a heavy smoker and has COPD. He has had respiratory failure and has been on and off the ventilator. He has had hoarseness and stridor and has a upper tracheal lesion. He had a tracheostomy tube and biopsy of the neck mass. He has done well with a tracheostomy tube and is on trach collar now. His breathing is better and he is alert and talking a little. 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 He is breathing comfortably on trach collar. He got his PEG tube okay and is tolerating feedings. He is sitting up and doing more activity but he is weak. His breathing is doing well and he has decided to try chemotherapy. At present he is relatively stable. Exam (Progress Note) - Constitutional Vitals: Period Temp Pulse Resp BP Sys/Hart Pulse Ox Last 24 Hr 97.1 F-98.6 F 68-96 16-20 102-119/66-82 92-99 Exam: General appearance: normal weight, no acute distress (Patient is alert and comfortable on trach collar.) - Head Head exam: Present: normal inspection, normocephalic - Eye Eye exam: Present: EOMI. Absent: scleral icterus Pupils: Present: PETE - ENT ENT exam: unremarkable - Neck Neck exam: his dia is shaved and he has a left neck mass. He does have some subcutaneous air. He has a tracheostomy tube in place. - Respiratory Respiratory exam: Present: He has distant breath sounds but he has adequate air movement and no wheezing. He continues to breathe comfortably. - Cardiovascular Cardiovascular exam: Present: regular rate and rhythm. Absent: gallop, systolic murmur - GI/Abdominal GI/Abdominal exam: Present: normal bowel sounds, soft. Absent: distended, tenderness - Extremities Exam Extremities exam: Absent: calf tenderness, edema, he has no signs of phlebitis. - Neurological Exam Neurological exam: Present: He is alert and talking and moving everything. - Psychiatric Psychiatric exam: patient is comfortable at present. - Skin Skin exam: Present: warm, dry Results - Labs CBC & BMP: 04/02/17 09:26 04/04/17 04:38 Assessment and Plan (1) Smoker Status: Chronic Assessment and plan: We will place a nicotine patch and he certainly needs to quit smoking. Current Visit: Yes (2) Acute exacerbation of chronic obstructive airways disease Status: Acute Assessment and plan: The patient comes in with an exacerbation of his COPD . He now has a tracheostomy tube. His breathing is fairly stable at present. He will continue with bronchodilator therapy. Current Visit: Yes (3) Acute respiratory failure Status: Resolved Assessment and plan: The patient had respiratory failure and had upper airway obstruction. Now has a tracheostomy tube and is breathing comfortably. 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 This can suggest metastatic disease. He is discussing chemotherapy. Current Visit: Yes
--- NOTE | 2017-04-04 15:00 | Operative Note ---
Surgeon / Physician: Babak Murrieta Results - Labs CBC & BMP: 04/02/17 09:26 04/04/17 04:38 Discharge Plan - Discharge Medications No Action No Known Home Medications [No Known Home Medications] - Follow Up or Referral - Forms/Instructions
--- NOTE | 2017-04-04 15:02 | Gastrointestinal Progress Note ---
Assessment and Plan (1) Squamous cell carcinoma of head and neck Status: Acute Assessment and plan: This is the cause for the underlying pharyngeal dysphagia. Was diagnosed on pathology that is returned again today as per Dr. Monterroso. CT scan seems to indicate that this is coming from the neck near the thyroid however is certainly possible this may be a esophageal squamous cell carcinoma given this patient's history of drinking and smoking. We should be able to determine if this is indeed the case one-way perform upper endoscopy and see if there is luminal involvement versus external compression. 03/31/17--The patient is due to get his PEG tube tomorrow. He remains in the ICU for the present time. 04/01/17--findings upper endoscopy did not see any involvement with the esophagus of the cancer. This is likely compressive phenomenon preventing the patient from eating. Also the following was seen: Vocal cord mass thought to be a squamous cell carcinoma, proximal fungal esophagitis, distal LA class C erosive esophagitis, EG junction white plaque of unclear significance, possible ulcer versus carcinoma, diffuse gastritis 04/04/17--This is squamous cell carcinoma of the head and neck, widely metastatic , he is chosen to pursue hospice as opposed to active therapy. I have pointed out to him that the PEG tube will be extremely helpful for swallowing pills and obtaining nutrition if the squamous cell carcinoma worsens in his throat and compresses his esophagus. Progression is likely. The patient certainly would benefit from use of PPIs on a twice daily dosing schedule. Suggest use of Prevacid Solutab's via the PEG tube twice daily. This should help with the patient's underlying esophagitis. Current Visit: Yes (2) Pharyngeal dysphagia Status: Acute Assessment and plan: Patient does have pharyngeal dysphagia caused by presumed external compression of the esophagus. He is really not been able to eat for some weeks now, he is now status post tracheostomy placement and biopsy of the squamous cell carcinoma mass by Dr. Monterroso. We will be placing a PEG tube however this cannot be placed tomorrow due to the proximity of the last Lovenox dosing at 0937 this morning. We will plan to place this on Tuesday at 0930 to give him adequate time off of the medication to decrease his bleeding risk. We will have anesthesiology assess his risk prior to placement of the PEG tube. Again the esophagogastroduodenoscopy should be able to assess if this is a intraluminal esophageal cancer producing the squamous cell cancer. 03/31/17--Again we are awaiting upper endoscopy to see whether or not the patient 's difficulty with swallowing is due to intraluminal squamous cell carcinoma of the esophagus versus extraluminal compression from head and neck cancer. Upper endoscopy to occur about 9:30 to 11:30 tomorrow morning. 04/01/17--as noted above, will increase Protonix to twice a day, will await biopsy results before starting the patient on fluconazole. 04/04/17--We are still awaiting final pathology from the biopsies taken in the esophagus concerning this patient as needed for fluconazole. He definitely appears to have erosive esophagitis from reflux, and he will benefit from Prevacid Solutab's given through the PEG tube twice daily. Prescription written and provided in the front of the chart as I will be signing off at this time. Current Visit: Yes (3) Anemia Status: Acute Assessment and plan: The patient does have mild ongoing anemia likely secondary to bone marrow suppression with his chronic disease/cancer. The current hematocrit is 34.4%. 03/31/17--CBC not rechecked this morning. This patient does have a significant leukocytosis in addition. 04/01/17--The patient likely has these changes due to GI losses with erosive esophagitis particularly. 04/04/17--Hematocrit is been stable throughout the patient's hospital stay, this was last checked on 04/02/17. No further workup required. Current Visit: Yes (4) Pancreatitis Status: Acute Assessment and plan: No further evidence of pancreatitis this admission. Again the patient had stopped drinking some time ago and is already had his gallbladder taken out removing the sludge from potentially worsening this entity. Liver function tests look fine, no lipase level recheck was done this admission. 03/31/17--No further pancreatitis clinically this admission. 04/04/17--No further episode, will be signing off at this time. Current Visit: No Qualifiers: Chronicity: chronic Pancreatitis type: unspecified pancreatitis type Qualified Code(s): K86.1 - Other chronic pancreatitis Gastroenterology - PN: Subj Interval history: The patient is actually able to swallow some liquids as well as soft solids by report, he will be going for a hospice in the near future as the squamous cell carcinoma appears to be widely metastatic throughout his body including lungs and liver. Exam (Progress Note) - Constitutional Vitals: Period Temp Pulse Resp BP Sys/Hart Pulse Ox Last 24 Hr 97.1 F-98.6 F 68-96 16-20 102-119/66-82 92-99 General appearance: no acute distress - Head Head exam: Present: normocephalic - Eye Eye exam: Present: EOMI Pupils: Present: PETE - ENT ENT exam: Present: other (Tracheostomy in place with a Passy-Ellen valve.) - Respiratory Respiratory exam: Present: clear to auscultation bilaterally. Absent: rhonchi, stridor, wheezes - GI/Abdominal GI/Abdominal exam: Present: normal bowel sounds, soft, other (PEG tube appears to have a slight crust around it but otherwise without erythema or drainage.). Absent: distended, tenderness, rebound - Extremities Exam Extremities exam: Present: normal inspection. Absent: edema - Neurological Exam Neurological exam: Present: alert, oriented X3. Absent: altered - Psychiatric Psychiatric exam: Present: normal affect, normal mood - Skin Skin exam: Present: warm Results - Labs CBC & BMP: 04/02/17 09:26 04/04/17 04:38
[2017-04-04] MEDS: VANCOMYCIN INJ 1,000 MG in SODIUM CHLORIDE 0.9% 250 ML IV SCH ×2 (16:29→23:43)
--- NOTE | 2017-04-04 17:18 | Pathology Report from [facility] ---
[facility] [place] # : [id number] PATIENT NAME : Jerrod San ORDERING DR : Babak Murrieta MD CLINICAL HX: Head and neck cancer POST-OP DX: #1 Gastritis #2 Samia SPECIMEN INFO: #1 MARY #2 Esophageal biopsy GROSS DESCRIPTION: #1 Received in formalin labeled with the patients name JERROD SAN and #1 is multiple 0.2 cm red tissue fragments. Submitted in cassette # 1.#2 Received in formalin labeled with the patients name JERROD SAN and #2 is multiple 0.1 cm to 0.2 cm white tissue fragments. Submitted in cassette #2. DIAGNOSIS FOR JERROD SAN: #1 GASTRIC ANTRUM BIOPSY: Mild superficial gastritis. No evidence of malignancy. H. pylori-like organisms NOT seen on H&E or special stain with appropriate control.#2 ESOPHAGUS, BIOPSY: Esophageal Candidiasis Benign squamous esophageal mucosa with changes consistent with reflux esophagitis. No glandular epithelium identified. COLLECTED DATE: 04/03/2017 [facility] REPORT DATE: 04/04/2017 ELECTRONICALLY SIGNED BY: Klaudia Malin III, M.D. 04/04/2017 - 12:32:52 LOBO
[2017-04-04] MEDS: FOLIC ACID 1 MG TABLET PO SCH (20:50)
[2017-04-05] MEDS: methylPREDNISolone SOD SUC 40 MG/1 ML VIAL IV SCH ×2 (00:27→08:49)
[2017-04-05] MEDS: INSULIN REGULAR 100 UNIT/ML SUBCUT SCH ×3 (00:31→12:34)
[2017-04-05] MEDS: ALBUTEROL/IPRATROPIUM 3 ML NEB RESP TX SCH ×3 (00:50→14:01)
[2017-04-05] MEDS: CEFEPIME 1,000 MG in SODIUM CHLORIDE 0.9% 100 ML IV SCH ×2 (01:32→10:32)
[2017-04-05] MEDS: guaiFENesin 200 MG/10 ML UDCUP PO SCH ×3 (05:28→13:44)
[2017-04-05] MEDS: VANCOMYCIN INJ 1,000 MG in SODIUM CHLORIDE 0.9% 250 ML IV SCH (07:08)
[2017-04-05] MEDS: MULTIVITAMIN (OCUVITE) TABLET PO SCH (08:49)
[2017-04-05] MEDS: THIAMINE 100 MG TABLET PO SCH (08:49)
[2017-04-05] MEDS: PANTOPRAZOLE 40 MG VIAL IV SCH (08:50)
[2017-04-05] MEDS: NICOTINE 21 MG/24 HR PATCH TRANSDERM SCH (08:51)
[2017-04-05] MEDS: ENOXAPARIN 40 MG/0.4 ML SYRINGE SUBCUT SCH (08:51)
--- NOTE | 2017-04-05 08:55 | Pulmonology Progress Note ---
Pulmonary - PN: Subj Interval history: Patient is a 56-year-old white man who is a heavy smoker and has COPD. He has had respiratory failure and has been on and off the ventilator. He has had hoarseness and stridor and has a upper tracheal lesion. He had a tracheostomy tube and biopsy of the neck mass. He has done well with a tracheostomy tube and is on trach collar now. His breathing is better and he is alert and talking a little. 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 He is breathing comfortably on trach collar. He got his PEG tube okay and is tolerating feedings. He is sitting up and doing more activity but he is weak. He is coughing some but otherwise doing okay. He apparently has decided to go home with hospice. They are setting up equipment for home use. Exam (Progress Note) - Constitutional Vitals: Period Temp Pulse Resp BP Sys/Hart Pulse Ox Last 24 Hr 97.1 F-97.7 F 67-80 17-20 103-119/67-72 95-99 Exam: General appearance: normal weight, no acute distress (Patient is alert and comfortable on trach collar.) - Head Head exam: Present: normal inspection, normocephalic - Eye Eye exam: Present: EOMI. Absent: scleral icterus Pupils: Present: PETE - ENT ENT exam: unremarkable - Neck Neck exam: his dia is shaved and he has a left neck mass. He does have some subcutaneous air. He has a tracheostomy tube in place. - Respiratory Respiratory exam: Present: He has distant breath sounds and is moving air well without any wheezing. - Cardiovascular Cardiovascular exam: Present: regular rate and rhythm. Absent: gallop, systolic murmur - GI/Abdominal GI/Abdominal exam: Present: normal bowel sounds, soft. Absent: distended, tenderness - Extremities Exam Extremities exam: Absent: calf tenderness, edema, he has no signs of phlebitis. - Neurological Exam Neurological exam: Present: He is alert and talking and moving everything. - Psychiatric Psychiatric exam: patient is comfortable at present. - Skin Skin exam: Present: warm, dry Results - Labs CBC & BMP: 04/02/17 09:26 04/04/17 04:38 Assessment and Plan (1) Smoker Status: Chronic Assessment and plan: We will place a nicotine patch and he certainly needs to quit smoking. Current Visit: Yes (2) Acute exacerbation of chronic obstructive airways disease Status: Acute Assessment and plan: The patient comes in with an exacerbation of his COPD . He now has a tracheostomy tube. His breathing is fairly stable at present. He will continue with bronchodilator therapy. Current Visit: Yes (3) Acute respiratory failure Status: Resolved Assessment and plan: The patient had respiratory failure and had upper airway obstruction. Now has a tracheostomy tube and is breathing comfortably. He wants to go home with hospice. 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 This can suggest metastatic disease. He has decided not to take any treatment and go home with hospice. Current Visit: Yes
[2017-04-05] MEDS: DESITIN 4OZ/NYSTATIN 15 GRAM MIXTURE PASTE TOP SCH (08:57)
--- NOTE | 2017-04-05 11:52 | Discharge Summary ---
<MuirPola - Last Filed: 04/05/17 10:59> Hospital Course - Hospital Course Hospital Course: Mr. San is a 57 yr old male with a history of smoking, COPD, GERD, enlarged liver, pancreatitis, alcohol and tobacco abuse, and chronic neck and back pain that was transferred to [facility]'s ED on 03/13 from [facility] for further evaluation of respiratory distress. Pt. initially presented to the [facility] with complaints of shortness of breath that failed to improve with at home treatments. Pt's family reported that pt had become short of breath over several weeks prior to his presentation at the ED. Pt. became combative and had to be intubated. After intubation, patient was transferred to our facility for a higher level of care. Pt was placed in our ICU for monitoring. Pt. was initially treated with bronchodilators, steroids, and IV antibiotics. Labs were obtained and closely followed. Pt. has had a rather lengthy stay totalling 23 days. During the patient's hospital course, he has been seen by pulmonology, ENT, oncology, and GI services. Pt. has been intubated, extubated, and reintubated several times during his stay due to respiratory issues. ENT evaluated patient for stridor and tracheal lesion. Pt underwent a tracheostomy and a biopsy of neck mass was performed. Pt. was diagnosed with head and neck cancer. Pt. was evaluated by oncology and per note it was unclear whether patient is candidate for treatment but pt. and family decided to forgo treatment and pursue hospice therapy. Pt. also had peg tube placed and was placed on twice daily PPIs. Pt. was noted to have tolerated feedings well. Pt.'s breathing has improved with trach collar. Diet has been advanced some. Pt is stable for discharge home today with hospice. Discharge Plan - Discharge Medications No Action No Known Home Medications [No Known Home Medications] - Follow Up or Referral - Forms/Instructions Instructions: Tracheostomy Care (DC), How to Stop Smoking (DC), Tracheotomy (DC ), Chronic Obstructive Pulmonary Disease (DC), Abuse of Alcohol (DC) Exam - Constitutional Vitals: Period Temp Pulse Resp BP Sys/Hart Pulse Ox Last 24 Hr 97.1 F-98.4 F 18-98 17-20 102-110/67-74 95-99 Discharge Results Procedures and tests throughout hospitalization: Pending Orders 04/05/17 14:30 Vancomycin,Trough Timed Labs on day of discharge: Labs from last 24 hours 04/05/17 04/05/17 04/04/17 07:26 05:29 23:54 POC Glucose 237 H 124 H 118 H 04/04/17 18:50 POC Glucose 91 DS: Provider Date of admission: 03/13/17 02:01 Primary care physician: . No PCP Attending physician on admission: Zack Adams MD Consults: 03/13/17 03:09 Consult to Physician [CONS] Routine Comment: Consulting Provider: Heraclio Salgado Person Notified: aware 03/14/17 16:53 Consult to Dietitian [CONS] Routine Reason for Dietitian: Dietary Consult 03/14/17 17:53 Consult to Dietitian [CONS] Routine Reason for Dietitian: TF-Initiate/Manage 03/16/17 11:32 Consult to Occupational Therapy [CONS] Routine Reason for Occupational Therapy: Evaluate and Treat Consult to Physical Therapy [CONS] Routine Reason for Physical Therapy: Evaluate and Treat 03/20/17 09:24 Consult to Physician [CONS] Routine Comment: stridor Consulting Provider: Consult to Specialist Group: ENT When should Consulting Provider be notified: In am 03/20/17 09:35 Consult to Anesthesiology [CONS] Routine Consulting Provider: Reason for Anesthesiology: Intubation 03/21/17 11:21 Consult to Physician [CONS] Routine Comment: Consulting Provider: Edward Almodovar Consulting Provider Notified: Yes When should Consulting Provider be notified: In am Consult to Specialist Group: ENT Person Notified: dr. almodvoar Date Notified: 03/21/17 Time Notified: 09:30 Consult Notification Comment: notified dr almodovar in person in front of pts room. also called the office at 1025 and let the heating and ventilating tender know. 03/27/17 08:52 Consult to Pharmacy [CONS] Routine Reason for Pharmacy Consult: Dose/Manage Vancomycin 03/31/17 07:37 Consult to Physician [CONS] Routine Comment: Consulting Provider: Jordan Juarez Consulting Provider Notified: Yes Consult to Specialist Group: Oncology When should Consulting Provider be notified: Now Person Notified: DAGMAR Date Notified: 03/31/17 Time Notified: 08:55 03/31/17 07:51 Consult to Physician [CONS] Routine Comment: squammous cell Ca of neck Consulting Provider: Jordan Juarez Consulting Provider Notified: Yes Consult to Specialist Group: Oncology When should Consulting Provider be notified: Now Person Notified: DAGMAR Date Notified: 03/31/17 Time Notified: 08:55 04/01/17 09:34 Consult to Dietitian [CONS] Routine Reason for Dietitian: TF-Initiate/Manage Consult Comment: Tube feeding recommendations 04/04/17 11:40 Consult to Case Mgmt/Social Srvs [CONS] Routine Reason for Case Mgmt/Social Srvs: Hospice Referral 04/05/17 13:22 Consult to Case Mgmt/Social Srvs [CONS] Routine Reason for Case Mgmt/Social Srvs: Equipment Consult Comment: Need suction with catheters, oxygen with Trach Humidification at home Discharging clinician: Pola Muir NP <Blade Barrera - Last Filed: 04/05/17 13:59> Discharge Results - Impressions Patient seen and examined today. I have reviewed the discharge summary by JACI Muir, and I agree with the documentation. Patient is in good spirits. He notes intermittent SOB and is aware to use his oxygen. He notes that he does not like his oxygen. He denies any CP. Sister and sister's friend at bedside and all questions answered. Vitals reviewed. Hyphonic voice but still able to communicate. Cardiopulmonary exam significant for unlabored respirations, coarse breath sounds with descent air movement and prolonged expiratory phase and heart is regular. PEG is in place. Discharge diagnosis: 1. COPD with AE: seems to be improving; will discharge on steroid/ bronchodilators/oxygen 2. Respiratory failure s/p Trach 3. Oropharyngeal dysphagia s/p PEG placement 4. Tobacco use, counselled 5. h/o squamous cell cancer of the head and neck; now with metastasis 6. Metastatic laryngeal cancer. CT showed widespread masses Plan: discharge to home with hospice. Hospice diagnosis: metastatic laryngeal cancer. Life expectancy is <6 months if the disease takes its normal course. see medication reconcilation discharge list.
[2017-04-05 12:27] VITALS: BP 102/74
== END 2017-04-05 15:17 | disposition hospice, home (50) | DRG 3 ==
LOC: N.ED 00:24 → EDUNIT# 00:24 → N.EDINP 02:01 → SUATTDRO 02:01 → N.CC 03:04 → N.5E 03-16 18:18 → N.CC 03-20 07:43 → N.5E 03-23 12:33 → N.ICU 03-26 19:53 → N.5E 04-02 11:32
PROVIDERS: ADMIT Family Medicine; ATTEND Internal Medicine
PROC: EGDWPEG (ICD-10-PCS; 2017-04-01 07:05)